=== PATIENT | male | born 1960 | race Caucasian/White ===

== ENCOUNTER 2021-09-17 01:45 | Day surgery (SDC) | payer BC, SELFPAY ==
[2021-08-29 11:39] VITALS: BMI 41.1
[2021-09-17 06:48] LABS: Glucose Point of Care 98 mg/dl (65-105)
[2021-09-17 06:49] VITALS: BP 136/70; PULSE 65; RESP 18; TEMP 35.6; O2SAT 100
[2021-09-17] MEDS: LACTATED RINGERS 1,000 ML 150 ML IV CONT (06:51)
--- NOTE | 2021-09-17 07:24 | WPDGICN ---
Assessment and Plan Assessment and plan (1) Encounter for screening colonoscopy: Code(s): Z12.11 - Encounter for screening for malignant neoplasm of colon Status: Acute Assessment and Plan: Patient presents today for screening colonoscopy. Appears to be at average risk for colon polyps. Further recommendations will be given after endoscopy. GI Consult Note Consult date/time: 09/17/21 07:24 HPI: Marbin Anderson is a 61 year old male Presents for screening colonoscopy. Patient's current weight appetite bowel movements are normal. He denies abdominal pain. He has had no bleeding. Family history is noncontributory. Patient reports having had a hyperplastic colon polyp removed from the colon 10 years ago under the direction of Dr. Marks. presents today for screening exam. Review of Systems Review of Systems: All systems reviewed & are unremarkable except as noted in HPI and below PMFSH Social History Social History Smoking status: Never smoker Alcohol intake: never Substance use: never Substance use type: does not use Living arrangements: with family Spiritual care concerns: No Meds Home Medications and Allergies Home Medications Medication Instructions Recorded Confirmed Type allopurinol 300 mg PO DAILY 08/29/21 09/17/21 History aspirin 81 mg PO DAILY 08/29/21 09/17/21 History atorvastatin 20 mg PO DAILY 08/29/21 09/17/21 History glimepiride 1 mg PO DAILY 08/29/21 09/17/21 History metoprolol succinate 100 mg PO BID 08/29/21 09/17/21 History minoxidil 5 mg PO DAILY 08/29/21 09/17/21 History pioglitazone 45 mg PO DAILY 08/29/21 09/17/21 History spironolactone 25 mg PO DAILY 08/29/21 09/17/21 History valsartan 80 mg PO DAILY 08/29/21 09/17/21 History Allergies Allergy/AdvReac Type Severity Reaction Status Date / Time No Known Allergies Allergy Verified 09/17/21 06:48 Vital Signs Vital Signs - 24 hr 09/17/21 06:49 Temperature 96.1 F L Pulse Rate 65 Respiratory Rate 18 Blood Pressure 136/70 Pulse Oximetry 100 Exam Narrative: Physical exam reveals patient be alert. Vital signs stable. HEENT exam is unremarkable. Patient is anicteric. Lungs are clear to auscultation and percussion. Heart is without murmur or extra sounds. Abdominal exam is somewhat obese. Bowel sounds are present soft nontender with no organomegaly. Digital external rectal exam is normal.
--- NOTE | 2021-09-17 07:48 | P.PNAN_ITS ---
Anes - Initial Pre Proc Eval Procedure: Operation Date: 09/17/21 08:00 Proposed Procedures p Screening Colonoscopy - Bry Carrasco MD Date/Time: 09/17/21 07:48 Surgeon: Bry Carrasco MD Pre Op Diagnosis: hx colon polyps Patient Data Age: 61 Gender: M Height: 1.8 m Weight: 140.9 kg Last Vital Signs Temp 96.1 F L 09/17/21 06:49 Pulse 65 09/17/21 06:49 Resp 18 09/17/21 06:49 BP 136/70 09/17/21 06:49 Pulse Ox 100 09/17/21 06:49 Allergies Allergy/AdvReac Type Severity Reaction Status Date / Time No Known Allergies Allergy Verified 09/17/21 06:48 Home Medications Medication Instructions Recorded Confirmed Type allopurinol 300 mg PO DAILY 08/29/21 09/17/21 History aspirin 81 mg PO DAILY 08/29/21 09/17/21 History atorvastatin 20 mg PO DAILY 08/29/21 09/17/21 History glimepiride 1 mg PO DAILY 08/29/21 09/17/21 History metoprolol succinate 100 mg PO BID 08/29/21 09/17/21 History minoxidil 5 mg PO DAILY 08/29/21 09/17/21 History pioglitazone 45 mg PO DAILY 08/29/21 09/17/21 History spironolactone 25 mg PO DAILY 08/29/21 09/17/21 History valsartan 80 mg PO DAILY 08/29/21 09/17/21 History Laboratory Tests 09/17/21 06:44 POC Capillary Glucose 98 mg/dl mg/dl (65-105) Patient hx anesthesia problems: none Family hx anesthesia problems: none Results Review: All pre-operative results and documents have been reviewed as part of the pre-operative evaluation. [facility] Past Medical History Medical History (Updated 09/17/21 @ 07:48 by Abner Sanchez MD) Hyperlipidemia Hypertension ZULEYMA (obstructive sleep apnea) Social History Social History Smoking status: Never smoker Alcohol intake: never Substance use: never Substance use type: does not use Living arrangements: with family Spiritual care concerns: No Anes - Eval Final PreProcedure Day of Procedure 09/17/21 07:48 Patient weight: morbidly obese Heart: regular rate and rhythm Lungs: clear to auscultation Airway: Mallampati scale class III Neurological: alert and oriented Last oral intake: >/= 8 hours ASA classification: III Emergent: no Anesthetic plan: proceed Anesthesia type and monitoring: general GIVS and standard monitoring Results Review: All pre-operative results and documents have been reviewed as part of the pre-operative evaluation. Informed Consent: The patient's anesthetic plan and its attendant risks and benefits were discussed with the patient/family/POA. Questions were solicited and answers provided to the satisfaction of the patient/family/POA.
[2021-09-17 08:11] VITALS: BP 137/63; PULSE 69; RESP 25; O2SAT 99
[2021-09-17 08:21] VITALS: BP 152/84; PULSE 67; RESP 21; O2SAT 100
[2021-09-17 08:31] VITALS: BP 141/80; PULSE 61; RESP 18; O2SAT 100
== END 2021-09-17 08:43 | disposition home or self-care (01) ==
PROVIDERS: PCP Family Medicine Adolescent Medicine; Visit Provider Internal Medicine Gastroenterology
PROC: 0DJD8ZZ Inspection of Lower Intestinal Tract, Via Natural or Artificial Opening Endoscopic (ICD-10-PCS; CPT 45378; principal; 2021-09-17 08:00)
DX: Z12.11 Encounter for screening for malignant neoplasm of colon (principal); D12.5 Benign neoplasm of sigmoid colon; K64.8 Other hemorrhoids; I10 Essential (primary) hypertension; E78.5 Hyperlipidemia, unspecified; G47.33 Obstructive sleep apnea (adult) (pediatric); E66.01 Morbid (severe) obesity due to excess calories; Z68.41 Body mass index [BMI] 40.0-44.9, adult; Z79.82 Long term (current) use of aspirin; Z79.84 Long term (current) use of oral hypoglycemic drugs
CPT/HCPCS: 45385; 82948; 88305; J2704; J7120

== ENCOUNTER 2024-11-07 22:59 | Inpatient (IN) | payer BC, MEDICARE, SELFPAY ==
--- NOTE | ~2024-11-07 | CT_ITS ---
CT of the Abdomen and Pelvis: Indication: Abdominal pain Technique: 2.5 mm axial scans were obtained through the abdomen and pelvis following intravenous adm inistration of 100 cc of Omnipaque 350. Dose reduction technique was used on this scan by utilizing a utomated exposure control and iterative reconstruction technique. The dose-length product (DLP) was 2 170.19 mGy-cm. Findings: Scans through the lung bases demonstrate left basilar atelectatic change. The liver, spleen, pancreas, gallbladder, adrenals and kidneys are within normal limits. There are mi ld atherosclerotic calcifications of the aorta. No lymphadenopathy. There is extensive wall thickening and inflammatory change involving the mid sigmoid colon, compatibl e with acute diverticulitis. Small amount of local free air present, with pericolonic phlegmonous aust[place] nge. No intracranial abscess evident. Images through the pelvis were performed. Urinary bladder unremarkable. No pelvic mass seen. No ascit es. Impression: Acute sigmoid diverticulitis with pericolonic phlegmonous change and small amount of local free air, compatible with perforation. No mature drainable abscess. Reviewed, dictated and finalized at [facility]. [employer]ING [employer]PER[employer]OR Impression: Acute sigmoid diverticulitis with pericolonic phlegmonous change and small amou nt of local free air, compatible with perforation. No mature drainable abscess.
[2024-11-07 23:16] VITALS: BP 139/71; PULSE 120; RESP 20; TEMP 36.9; O2SAT 96
[2024-11-07 23:28] LABS: Basophils Percent Auto 0.1 % (0.2-1.2); Eosinophils Absolute Auto 0.1 K/mm3 (0-0.3); Eosinophils Percent Auto 0.5 % (0-4.4); Hematocrit 39.9 % (42.0-52.0); Hemoglobin 12.9 g/dL (14.0-18.0); Immature Granulocyte Absolute 0.07 K/mm3 (0.00-0.031); Immature Granulocyte Percent A 0.5 % (0-0.5); Lymphocytes Absolute Auto 0.92 K/mm3 (0.9-3.2); Lymphocytes Percent Auto 6.2 % (18.3-44.2); Mean Corpuscular HGB Conc 32.3 g/dl (32-36); Mean Corpuscular Hemoglobin 30.7 pg (26-34); Mean Platelet Volume 9.5 fl (7.4-10.4); Monocytes Absolute Auto 0.9 K/mm3 (0.1-0.6); Monocytes Percent Auto 6.2 % (2.6-8.5); Neutrophils Absolute Auto 12.8 K/mm3 (1.3-6.7); Neutrophils Percent Auto 86.5 % (45.5-73.1); Platelet Count Result 256 k/mm3 (150-375); Red Cell Distribution Width 14.2 % (11.5-14.5); White Blood Count 14.9 K/mm3 (4.5-10.0)
[2024-11-07 23:40] LABS: Alanine Aminotransferase 28 U/L (6-50); Albumin Level 3.9 g/dL (3.5-5.1); Alkaline Phosphatase 69 U/L (38-126); Anion Gap 9 mmol/L (4-12); Aspartate Amino Transferase 24 U/L (17-59); Bilirubin,Total 0.7 mg/dL (0.2-1.3); Blood Urea Nitrogen 31 mg/dL (9-20); Calcium 9.6 mg/dL (8.4-10.2); Carbon Dioxide 25 mmol/L (22-30); Chloride 104 mmol/L (98-107); Estimated CRCL calculation 68 ml/min; Estimated Glomerular Filt Rate 51; Glucose 173 mg/dL (65-110); Lipase 133 U/L (23-300); Potassium 4.7 mmol/L (3.4-5.0); Sodium 138 mmol/L (137-145)
[2024-11-08] VITALS (14 sets, daily range): BP systolic 96–133; BP diastolic 41–87; PULSE 72–105; RESP 16–20; TEMP 36.2–37.7; O2SAT 91–97; BMI 44.0
--- NOTE | 2024-11-08 00:27 | ED.ABDPAIN ---
HPI - Abdominal Pain General Chief Complaint: Abdominal Pain <Patrice Jameson PA-C - Last Filed: 11/08/24 02:08> Stated Complaint: Extreme stomach pain <PARISH Stevens Last Filed: 11/08/24 02:08> Time Seen by Provider: 11/08/24 00:17 <Patrice Jameson PA-C - Last Filed: 11/08/24 02:08> Source: patient <PARISH Stevens Last Filed: 11/08/24 02:08> Mode of arrival: ambulatory <PARISH Stevens Last Filed: 11/08/24 02:08> Limitations: no limitations <PARISH Stevens Last Filed: 11/08/24 02:08> History of Present Illness HPI narrative: This is a 64-year-old male who presents to the ED for chief complaint of lower abdominal pain, nausea, distension over the past couple of days. States that last night he started to have this pain when he stood up from a seated position. States that he felt like something popped where his incision site is. Reports that he has surgical history of skin grafting from the abdomen in 2019 at [facility] [place]. Patient states that he thought the pain was strange last night but did not think much of it, however today is getting worse and worse. Endorses severe bloating and nausea but no vomiting. States that bowel movements have been normal. Denies urinary symptoms. Denies fevers, chills, back pain. Patient reports that he had abdominal apron surgically resected which was used to harvest graft for a split-thickness graft of his penis for skin defects of the penis. This was all done as 1 procedure at [place]. <PARISH Stevens Last Filed: 11/08/24 02:08> Related Data Home Medications: Home Medications ?Medication ?Instructions ?Recorded ?Confirmed ?Last Taken ?Type aspirin 81 mg tablet 81 mg PO DAILY 08/29/21 08/23/24 Unknown History [id number] 300 mcg-K 60 1 tablet PO DAILY 07/10/22 08/23/24 Unknown History mcg-lycop 600 mcg-lutein 300 mcg tablet (Men 50 Plus Multivitamin) clobetasol 0.05 % topical ointment 1 applic topical BID PRN 08/23/24 08/23/24 Unknown History <Patrice Jameson PA-C - Last Filed: 11/08/24 02:08> Allergies/Adverse Reactions: Allergies Allergy/AdvReac Type Severity Reaction Status Date / Time acetaminophen (From Lortab) Allergy Vomiting Verified 08/23/24 13:01 hydrocodone (From Lortab) Allergy Vomiting Verified 08/23/24 13:01 <Patrice Jameson PA-C - Last Filed: 11/08/24 02:08> Review of Systems Review of Systems: All systems as dictated in HPI <PARISH Stevens Last Filed: 11/08/24 02:08> PMFSH Past Medical History Medical History: Medical History (Updated 11/08/24 @ 03:25 by Kailash Rodriguez MD) ZULEYMA (obstructive sleep apnea) Hypertension Hyperlipidemia <PARISH Stevens Last Filed: 11/08/24 02:08> Family History Family History: Family History (Updated 07/07/22 @ 10:02 by Logan Harp MA) Father Diabetes mellitus Hypertension Mother Diabetes mellitus Multiple myeloma <Patrice Jameson PA-C - Last Filed: 11/08/24 02:08> Social History Social History: Social History Smoking status: Never smoker Alcohol intake: never Substance use: never Substance use type: does not use Living arrangements: with family Spiritual care concerns: No <PARISH Stevens Last Filed: 11/08/24 02:08> Exam Narrative: GENERAL: Well-appearing, well-nourished, and in no acute distress. HEAD: Normocephalic, atraumatic. EYES: PERRLA and EOMI. ENT: Nares clear, no rhinorrhea or epistaxis. Mucous membranes moist. Oropharynx without tonsillar hypertrophy exudate or other lesions. NECK: Supple. No adenopathy or masses. CHEST: No respiratory distress. Clear to auscultation. No wheezes rales or rhonchi HEART: Regular rate and rhythm. No murmur heard. Normal peripheral pulses. ABDOMEN: Obese abdomen. Curvilinear healed incision across the entire lower pannus. Moderate tenderness to the periumbilical/suprapubic area. Soft, mild distension, normal active bowel sounds. MSK: Normal range of motion. No edema. SKIN: Warm, dry, no rash. NEURO: Alert and oriented x4. No focal deficits. PSYCH: Normal mood and affect. <Patrice Jameson PA-C - Last Filed: 11/08/24 02:08> Course [employer] CHAIR/PA Physician Supervision For this patient encounter, I reviewed the [employer] CHAIR or PA documentation, treatment plan, and medical decision making and had [id number] time with this patient. I performed all aspects of the MDM as documented. <Kailash Rodriguez MD - Last Filed: 11/08/24 03:58> Vital Signs Vital signs: Vital Signs Temperature 98.4 F 11/07/24 23:16 Pulse Rate 120 H 11/07/24 23:16 Respiratory Rate 20 11/07/24 23:16 Blood Pressure 139/71 11/07/24 23:16 Pulse Oximetry 96 11/07/24 23:16 Oxygen Delivery Room Air 11/07/24 23:16 Temperature 98.4 F 11/07/24 23:16 Pulse Rate 105 H 11/08/24 03:31 Respiratory Rate 19 11/08/24 03:31 Blood Pressure 133/72 11/08/24 03:31 Pulse Oximetry 97 11/08/24 03:31 Oxygen Delivery Room Air 11/07/24 23:16 <Patrice Jameson PA-C - Last Filed: 11/08/24 02:08> Vital Signs Temperature 98.4 F 11/07/24 23:16 Pulse Rate 120 H 11/07/24 23:16 Respiratory Rate 11/07/24 23:16 Blood Pressure 139/71 11/07/24 23:16 Pulse Oximetry 96 11/07/24 23:16 Oxygen Delivery Room Air 11/07/24 23:16 Temperature 98.4 F 11/07/24 23:16 Pulse Rate 105 H 11/08/24 03:31 Respiratory Rate 19 11/08/24 03:31 Blood Pressure 133/72 11/08/24 03:31 Pulse Oximetry 97 11/08/24 03:31 Oxygen Delivery Room Air 11/07/24 23:16 <Kailash Rodriguez MD - Last Filed: 11/08/24 03:58> MDM - Abdominal Pain MDM Narrative Medical decision making narrative: This is a 64-year-old male who presents to the ED for chief complaint of abdominal pain beginning last night and worsening today. Vitals on arrival show tachycardia but otherwise normal. Exam remarkable for lower abdominal tenderness. Lab work shows elevated white count of 14.9. CMP shows elevated BUN of 31 and creatinine of 1.39 which is a bump his baseline. Urinalysis is grossly negative. Patient will be handed off to attending Dr. Rodriguez at the time of shift change pending CT results. Patient was started on fluids, pain meds and anti emetics. <Patrice Jameson PA-C - Last Filed: 11/08/24 02:08> This is a 64-year-old male who presents to the ED for chief complaint of abdominal pain beginning last night and worsening today. Vitals on arrival show tachycardia but otherwise normal. Exam remarkable for lower abdominal tenderness. Lab work shows elevated white count of 14.9. CMP shows elevated BUN of 31 and creatinine of 1.39 which is a bump his baseline. Urinalysis is grossly negative. Patient will be handed off to attending Dr. Rodriguez at the time of shift change pending CT results. Patient was started on fluids, pain meds and anti emetics. Aveshir: Patient was signed out to me pending CT abdomen pelvis with IV contrast. CT obtained and did receive a call from radiologist reading the CT scan at 0312 informing me that patient has a perforated diverticulitis of the sigmoid colon recommending surgical consultation. CT also revealed gas and fluid containing collection adjacent to the sigmoid colon measuring up to 2.5 cm consistent with abscess. No evidence of bowel obstruction. Patient was informed of these findings at bedside. He is currently resting comfortably. Case was discussed with the on-call general surgeon Dr. Lujan at 0325 and he accepted admission. Per his request patient will be admitted to his service. Patient was started on IV Zosyn after blood cultures were obtained. PRN pain medications were ordered at this time with morphine, along with p.r.n. nausea medication with Zofran. Patient was also started on maintenance fluids with LR at a rate of 100 cc/hour. <Kailash Rodriguez MD - Last Filed: 11/08/24 03:58> Lab Data Result diagrams: 11/07/24 23:22 11/07/24 23:22 <Patrice Jameson PA-C - Last Filed: 11/08/24 02:08> Labs: Lab Results 11/07/24 11/08/24 11/08/24 Range/Units 23:22 00:57 01:16 WBC 14.9 H (4.5-10.0) K/mm3 RBC 4.20 L (4.6-6.20) M/mm3 Hgb 12.9 L (14.0-18.0) g/dL Hct 39.9 L (42.0-52.0) % MCV 95.0 (80-100) fl MCH 30.7 (26-34) pg MCHC 32.3 (32-36) g/dl RDW 14.2 (11.5-14.5) % Plt Count 256 (150-375) k/mm3 MPV 9.5 (7.4-10.4) fl Immature Gran % (Auto) 0.5 (0-0.5) % Neut % (Auto) 86.5 H (45.5-73.1) % Lymph % (Auto) 6.2 L (18.3-44.2) % [place] % (Auto) 6.2 (2.6-8.5) % Eos % (Auto) 0.5 (0-4.4) % Baso % (Auto) 0.1 L (0.2-1.2) % Lymph # (Auto) 0.92 (0.9-3.2) K/mm3 [place] # (Auto) 0.9 H (0.1-0.6) K/mm3 Eos # (Auto) 0.1 (0-0.3) K/mm3 Baso # (Auto) 0.0 (0.0-0.1) K/mm3 Abs Immat Gran (auto) 0.07 H (0.00-0.031) K/mm3 Absolute Neuts (auto) 12.8 H (1.3-6.7) K/mm3 Absolute Nucleated RBC 0.000 (0.0-0.012) K/mm3 Nucleated RBC % 0.0 (0.0-0.2) % Sodium 138 (137-145) mmol/L Potassium 4.7 (3.4-5.0) mmol/L Chloride 104 (98-107) mmol/L Carbon Dioxide 25 (22-30) mmol/L Anion Gap 9 (4-12) mmol/L BUN 31 H (9-20) mg/dL Creatinine 1.39 H (0.7-1.3) mg/dL Estim Creat Clear Calc 68 ml/min Estimated GFR 51 L (59 - ) Glucose 173 H (65-110) mg/dL POC Capillary Glucose 174 H (65-105) mg/dl Lactic Acid 1.5 (0.7-2.0) mmol/L Calcium 9.6 (8.4-10.2) mg/dL Total Bilirubin 0.7 (0.2-1.3) mg/dL AST 24 (17-59) U/L ALT 28 (6-50) U/L Alkaline Phosphatase 69 (38-126) U/L Total Protein 7.0 (6.3-8.2) g/dL Albumin 3.9 (3.5-5.1) g/dL Lipase 133 (23-300) U/L Urine Color Yellow (Yellow) Urine Appearance Clear (Clear) Urine pH 5.0 (5.0-9.0) Ur Specific [place] 1.018 (1.001-1.035) Urine Protein Negative (Negative) mg/dL Urine Glucose (UA) Negative (Negative) mg/dL Urine Ketones Negative (Negative) mg/dL Ur Blood (Man) Negative (Negative) Urine Nitrate Negative (Negative) Urine Bilirubin Negative (Negative) Urine Urobilinogen 0.2 (<2.0) mg/dL Leukocyte Esterase Rfl Negative (Negative) JEANNE/UL <Patrice Jameson PA-C - Last Filed: 11/08/24 02:08> Lab Results 11/07/24 11/08/24 11/08/24 Range/Units 23:22 00:57 01:16 WBC 14.9 H (4.5-10.0) K/mm3 RBC 4.20 L (4.6-6.20) M/mm3 Hgb 12.9 L (14.0-18.0) g/dL Hct 39.9 L (42.0-52.0) % MCV 95.0 (80-100) fl MCH 30.7 (26-34) pg MCHC 32.3 (32-36) g/dl RDW 14.2 (11.5-14.5) % Plt Count 256 (150-375) k/mm3 MPV 9.5 (7.4-10.4) fl Immature Gran % (Auto) 0.5 (0-0.5) % Neut % (Auto) 86.5 H (45.5-73.1) % Lymph % (Auto) 6.2 L (18.3-44.2) % [place] % (Auto) 6.2 (2.6-8.5) % Eos % (Auto) 0.5 (0-4.4) % Baso % (Auto) 0.1 L (0.2-1.2) % Lymph # (Auto) 0.92 (0.9-3.2) K/mm3 [place] # (Auto) 0.9 H (0.1-0.6) K/mm3 Eos # (Auto) 0.1 (0-0.3) K/mm3 Baso # (Auto) 0.0 (0.0-0.1) K/mm3 Abs Immat Gran (auto) 0.07 H (0.00-0.031) K/mm3 Absolute Neuts (auto) 12.8 H (1.3-6.7) K/mm3 Absolute Nucleated RBC 0.000 (0.0-0.012) K/mm3 Nucleated RBC % 0.0 (0.0-0.2) % Sodium 138 (137-145) mmol/L Potassium 4.7 (3.4-5.0) mmol/L Chloride 104 (98-107) mmol/L Carbon Dioxide 25 (22-30) mmol/L Anion Gap 9 (4-12) mmol/L BUN 31 H (9-20) mg/dL Creatinine 1.39 H (0.7-1.3) mg/dL Estim Creat Clear Calc 68 ml/min Estimated GFR 51 L (59 - ) Glucose 173 H (65-110) mg/dL POC Capillary Glucose 174 H (65-105) mg/dl Lactic Acid 1.5 (0.7-2.0) mmol/L Calcium 9.6 (8.4-10.2) mg/dL Total Bilirubin 0.7 (0.2-1.3) mg/dL AST 24 (17-59) U/L ALT 28 (6-50) U/L Alkaline Phosphatase 69 (38-126) U/L Total Protein 7.0 (6.3-8.2) g/dL Albumin 3.9 (3.5-5.1) g/dL Lipase 133 (23-300) U/L Urine Color Yellow (Yellow) Urine Appearance Clear (Clear) Urine pH 5.0 (5.0-9.0) Ur Specific [place] 1.018 (1.001-1.035) Urine Protein Negative (Negative) mg/dL Urine Glucose (UA) Negative (Negative) mg/dL Urine Ketones Negative (Negative) mg/dL Ur Blood (Man) Negative (Negative) Urine Nitrate Negative (Negative) Urine Bilirubin Negative (Negative) Urine Urobilinogen 0.2 (<2.0) mg/dL Leukocyte Esterase Rfl Negative (Negative) JEANNE/UL <Kailash Rodriguez MD - Last Filed: 11/08/24 03:58> Discharge Plan Discharge Clinical Impression: Bowel perforation, Abscess of sigmoid colon, Abdominal pain <Patrice Jameson PA-C - Last Filed: 11/08/24 02:08>
[2024-11-08 01:00] LABS: Glucose Point of Care 174 mg/dl (65-105)
[2024-11-08] MEDS: SODIUM CHLORIDE 0.9% IV 1,000 ML 999 ML IV CONT (01:09)
[2024-11-08] MEDS: ONDANSETRON INJ 4 MG/2 ML VIAL IV PUSH ×4 (01:11→21:45)
[2024-11-08] MEDS: HYDROmorphone HCL INJ (*CRX) 1 MG/ML SYR 0.5 MG IV PUSH (01:11)
[2024-11-08 01:30] LABS: Add Urine Microscopic? NO; Appearance Urine Clear (Clear); Bilirubin Urine Negative (Negative); Blood Urine Negative (Negative); Color Urine Yellow (Yellow); Glucose Urine UA Negative (Negative); Ketones Urine Negative (Negative); Leukocyte Esterase Ur Negative LEU/UL (Negative); Nitrate Urine Negative (Negative); Protein Urine Negative (Negative); Specific Grav Ur 1.018 (1.001-1.035); Urobilinogen Urine 0.2 mg/dL (<2.0)
[2024-11-08 01:38] LABS: Lactic Acid Reflex 1.5 mmol/L (0.7-2.0)
[2024-11-08] MEDS: MORPHINE SULFATE (*CRX) 4 MG/ML INJ IV PUSH ×4 (03:59→21:44)
--- NOTE | 2024-11-08 04:03 | PC.NURSE ---
ATTEMPTED BCULT X2 W NO SUCCESS. ADMITTING NURSE, FRANCISCO, MADE AWARE. PHLEBOTOMY CONTACTED BY PHYSICAL LABORATORY ASSISTANT, CARLOS AND TO DRAW CULTURES FROM ADMITTING ROOM. PT GIVEN DOSE OF PRN ANTIEMETICS AND PAIN MEDICATION. PT TRANSPORTED UPSTAIRS BY PAUL PRICE.
--- NOTE | 2024-11-08 04:13 | ADMGEN ---
This patient, Marbin Anderson, was admitted to Medical Room 261-01. Patient/family oriented to hospital policies and general routines including ID bracelet, bed and alarms, visiting hours, pain management, procedures, bathroom and other care routines, personal items, smoking policy, room service/diet, and visiting hours. Information on how to activate the Rapid Response Team has been discussed. Patient/Family are encouraged to report perceived risks to care and to ask questions if they do not understand what they are told or what they should do.
[2024-11-08] MEDS: PIPERACILLIN/TAZ 4.5G/NS 100ML 4.5 GM/100 ML BAG IVPB (04:40)
[2024-11-08] MEDS: LACTATED RINGERS 1,000 ML 100 ML IV CONT (04:43)
[2024-11-08 06:48] LABS: Glucose Point of Care 149 mg/dl (65-105)
[2024-11-08 08:23] LABS: Glucose Point of Care 143 mg/dl (65-105)
[2024-11-08 09:01] LABS: Basophils Percent Auto 0.2 % (0.2-1.2); Eosinophils Percent Auto 0.1 % (0-4.4); Hematocrit 42.4 % (42.0-52.0); Hemoglobin 12.8 g/dL (14.0-18.0); Immature Granulocyte Percent A 0.6 % (0-0.5); Lymphocytes Percent Auto 4.9 % (18.3-44.2); Mean Corpuscular HGB Conc 30.2 g/dl (32-36); Mean Corpuscular Hemoglobin 30.9 pg (26-34); Mean Corpuscular Volume 102.4 fl (80-100); Mean Platelet Volume 10.5 fl (7.4-10.4); Monocytes Percent Auto 5.9 % (2.6-8.5); Neutrophils Absolute Auto 14.5 K/mm3 (1.3-6.7); Neutrophils Percent Auto 88.3 % (45.5-73.1); Platelet Count Result 231 k/mm3 (150-375); Red Blood Count 4.14 M/mm3 (4.6-6.20); Red Cell Distribution Width 14.6 % (11.5-14.5); White Blood Count 16.4 K/mm3 (4.5-10.0)
[2024-11-08 09:09] LABS: Anion Gap 12 mmol/L (4-12); Blood Urea Nitrogen 29 mg/dL (9-20); Calcium 9.3 mg/dL (8.4-10.2); Carbon Dioxide 23 mmol/L (22-30); Chloride 104 mmol/L (98-107); Estimated CRCL calculation 81 ml/min; Estimated Glomerular Filt Rate > 60; Glucose 152 mg/dL (65-110); Potassium 4.7 mmol/L (3.4-5.0); Sodium 139 mmol/L (137-145)
[2024-11-08 12:06] LABS: Glucose Point of Care 120 mg/dl (65-105)
[2024-11-08] MEDS: PIPERACILLN/TAZ 3.375GM/NS50ML 3.375 GM/50 ML BAG IVPB ×3 (12:15→23:11)
[2024-11-08] MEDS: SPIRONOLACTONE 25 MG TABLET BY MOUTH (12:16)
[2024-11-08] MEDS: METOPROLOL SUCCINATE EXT REL 100 MG TABCR 200 MG BY MOUTH (12:16)
[2024-11-08] MEDS: allopurinoL 300 MG TABLET PO (12:16)
--- NOTE | 2024-11-08 13:51 | P.HP_ITS ---
H&P: HPI History of Present Illness Date/Time: 11/08/24 13:51 Chief Complaint: Abdominal pain Narrative: Patient is a 64-year-old man with diabetes, hypertension, gout, and morbid obesity. He has a history of a panniculectomy 5 years ago. Some of the skin from the panniculectomy was used as a skin graft for his penis. This was a difficult surgery for him and the panniculectomy itself had a postoperative hem atoma and delayed healing. He notices some intermittent pain associated with this area from time to time even today. His present illness began Thursday evening when he got up out of his recliner and noticed a pain in the left lower abdomen. This did not seem particularly unusual and he went head and went to bed that night. When he awakened yesterday morning the pain was still there but again not severe. He went about his usual activities yesterday but then yesterday evening was still having pain and now the pain seems worse and associated with tenderness. He went to the emergency room and was evaluated. He was noted to have tenderness in the left lower quadrant. His white blood cell count was elevated to 14,900. He was tachycardic but not febrile. CT scan of the abdomen pelvis showed evidence of sigmoid diverticulitis with perforation and a small amount of free air. There was no abscess. Patient was admitted and has been started on IV Zosyn antibiotics. He has been at bowel rest except for meds with sips of water and has been receiving IV a narcotic analgesics. He notes that the abdominal pain is still in the left lower quadrant but is not quite as severe as it was when he came into the emergency room. He has never had any similar symptoms or ever been diagnosed with diverticulitis. He had his last colonoscopy 09/17/21. This showed 2 small sigmoid polyps which were removed. Both were tubular adenomas. Some internal hemorrhoids were also noted. He has been recently started on Ozempic. He does not take insulin for his diabetes. Review of Systems Review of Systems: All systems reviewed & are unremarkable except as noted in HPI and below (HPI and those items noted below) Constitutional: Constitutional: Denies chills and Denies fever(s) Cardiovascular: Cardiovascular: Denies chest pain, Denies diaphoresis, Denies dyspnea and Denies paroxysmal nocturnal dyspnea Respiratory: Respiratory: Denies chest congestion, Denies cough and Denies dyspnea Integumentary/Breasts: Skin/Breast: Denies lesions and Denies rash [facility] Past Medical History Medical History ZULEYMA (obstructive sleep apnea) Hypertension Hyperlipidemia Family History Family History Father Diabetes mellitus Hypertension Mother Diabetes mellitus Multiple myeloma Social History Social History Smoking status: Never smoker Alcohol intake: never Substance use: never Substance use type: does not use Do You Feel Safe in your Home?: Yes Lack of Transportation: No Lack of Food: Never True Current Housing: I Have Housing Concerned About Future Housing: No Difficulty Paying Gas/Electric Bills: No Difficulty Paying for Meds: No Currently Unemployed: No Education: Bachelor's Degree Difficulty w/ Childcare or Family Care: No Living arrangements: with family Spiritual care concerns: No Meds Home Medications and Allergies Home Medications ?Medication ?Instructions ?Recorded ?Confirmed ?Type aspirin 81 mg tablet 81 mg PO DAILY 08/29/21 11/08/24 History [id number] 300 mcg-K 60 1 tablet PO DAILY 07/10/22 11/08/24 History mcg-lycop 600 mcg-lutein 300 mcg tablet (Men 50 Plus Multivitamin) metoprolol succinate 100 mg See Rx Instructions .Route 05/03/24 11/08/24 Rx tablet,extended release 24 hr .COMPLEX #270 tabs atorvastatin 20 mg tablet See Rx Instructions .Route 05/09/24 11/08/24 Rx .COMPLEX #90 tabs allopurinol 300 mg tablet 300 mg PO DAILY #90 tabs 08/01/24 11/08/24 Rx pioglitazone 45 mg tablet 45 mg PO DAILY #90 tabs 08/04/24 11/08/24 Rx spironolactone 25 mg tablet See Rx Instructions .Route 08/04/24 11/08/24 Rx .COMPLEX #90 tabs blood sugar diagnostic (OneTouch #100 ea 08/29/24 11/08/24 Rx Ultra Test strips) semaglutide 1 mg/dose (4 mg/3 mL) 1 mg (0.75 mL) subcut WEEKLY #3 mL 10/29/24 11/08/24 Rx subcutaneous pen injector (Ozempic) minoxidil 10 mg tablet See Rx Instructions .Route 11/06/24 11/08/24 Rx .COMPLEX #45 tabs valsartan 320 mg tablet 160 mg PO DAILY 11/08/24 11/08/24 History Allergies Allergy/AdvReac Type Severity Reaction Status Date / Time acetaminophen (From Lortab) Allergy Vomiting Verified 08/23/24 13:01 hydrocodone (From Lortab) Allergy Vomiting Verified 08/23/24 13:01 Vital Signs Vital Signs - 24 hr 11/07/24 23:16 11/08/24 03:31 11/08/24 04:00 Temperature 36.9 C 37.2 C Pulse Rate 120 H 105 H 88 Respiratory Rate 20 19 16 Blood Pressure 139/71 133/72 118/76 Pulse Oximetry 96 97 94 Oxygen Delivery Room Air 11/08/24 04:05 11/08/24 04:27 11/08/24 06:39 Temperature 37.7 C H Pulse Rate 72 105 H Respiratory Rate 16 16 Blood Pressure 128/87 111/43 L Pulse Oximetry 97 94 Oxygen Delivery Room Air 11/08/24 08:00 11/08/24 08:00 11/08/24 09:27 Temperature 36.6 C Pulse Rate 96 Respiratory Rate 18 Blood Pressure 96/43 L Pulse Oximetry 94 91 Oxygen Delivery Room Air Room Air 11/08/24 12:00 11/08/24 12:16 Temperature 36.4 C Pulse Rate 93 94 Respiratory Rate 20 Blood Pressure 123/61 Pulse Oximetry 97 Oxygen Delivery Exam Const: General: cooperative, comfortable, no acute distress, alert, awake and obese Nutritional Appearance: overweight Orientation/consciousness: patient oriented x3 and No confusion HENMT: Head: normocephalic and atraumatic Mouth: Yes Normal oral and palatal mucosa present Eyes: Conjunctivae: conjunctivae normal Pupils: Equal, round and reactive pupils present EOM: EOMs intact bilaterally Neck: Neck: normal visual inspection, no lymphadenopathy and nontender Resp: Effort & Inspection: normal respiratory effort Auscultation: clear to auscultation bilaterally Cardio: Rate: regular rate Rhythm: regular rhythm Heart sounds: no gallops, no murmurs and no rubs GI: Inspection: non-distended, obesity (Protuberant obese abdomen, central obesity), scar (Transverse lower abdominal scar) and no visible herniation GI Palp: Yes Soft to palpation, Yes Tenderness to palpation present (GI) (Very tender with guarding left lower quadrant.), Yes Guarding due to palpation present (GI), No Hepatomegaly present, No Splenomegaly present, No Hernia present and No Palpable mass present Auscultation: Hypoactive bowel sounds present Skin: Lesions: no lesions Rashes: no rashes Neuro: General: no focal motor deficits and CN's II-XI intact bilaterally Cranial nerves: Yes Equal, round and reactive pupils present, Yes Bilaterally intact EOM present, Yes facial symmetry and Yes Midline tongue present Speech : normal speech Motor exam (neuro): 5/5 motor strength present throughout and Motor abnormalities not present Extrem: General: no clubbing, cyanosis or edema and edema Psych: Affect: normal affect Thought process: Normal thought process present Insight: Good insight present (Psych) H&P: Results Labs Labs: Short CBC 11/07/24 11/08/24 Range/Units 23:22 04:38 WBC 14.9 H 16.4 H (4.5-10.0) K/mm3 Hgb 12.9 L 12.8 L (14.0-18.0) g/dL Hct 39.9 L 42.4 (42.0-52.0) % Plt Count 256 231 (150-375) k/mm3 BMP 11/07/24 11/08/24 23:22 04:38 Sodium 138 139 Potassium 4.7 4.7 Chloride 104 104 Carbon Dioxide 25 23 BUN 31 H 29 H Creatinine 1.39 H 1.17 Glucose 173 H 152 H Calcium 9.6 9.3 Liver Function 11/07/24 Range/Units 23:22 Total Bilirubin 0.7 (0.2-1.3) mg/dL AST 24 (17-59) U/L ALT 28 (6-50) U/L Alkaline Phosphatase 69 (38-126) U/L Albumin 3.9 (3.5-5.1) g/dL Urine 11/08/24 Range/Units 01:16 Urine Color Yellow (Yellow) Urine Appearance Clear (Clear) Urine pH 5.0 (5.0-9.0) Ur Specific [place] 1.018 (1.001-1.035) Urine Protein Negative (Negative) mg/dL Urine Glucose (UA) Negative (Negative) mg/dL Assessment and Plan Assessment and plan (1) Diverticulitis of large intestine with perforation: Qualifiers: Diverticulitis bleeding: without bleeding Qualified Code(s): K57.20 - Diverticulitis of large intestine with perforation and abscess without bleeding Code(s): K57.20 - Diverticulitis of large intestine with perforation and abscess without bleeding Status: Acute Assessment and Plan: Patient admitted for acute sigmoid diverticulitis with perforation. His white blood cell count is slightly higher this morning than it was last night. Continue bowel rest except sips of water and p.o. meds. Continue Zosyn IV antibiotics and IV fluid rehydration. I discussed the nature of diverticulitis with the patient and his . I discussed the possibility that diverticulitis may not resolve with nonsurgical treatment. I explained that it does usually resolve with medical therapy. If it does not resolve and surgery is needed, this will usually result in a temporary ileostomy or colostomy. Either of these would require a 2nd surgery to restore intestinal continuity. All questions were answered. Will continue to follow closely with above management. (2) Morbid obesity with BMI of 40.0-44.9, adult: Code(s): E66.01 - Morbid (severe) obesity due to excess calories; Z68.41 - Body mass index [BMI] 40.0-44.9, adult Status: Chronic (3) Essential (primary) hypertension: Code(s): I10 - Essential (primary) hypertension Status: Chronic Assessment and Plan: Continue home meds including metoprolol 100 mg q.8 hours. Consult hospitalist service for medical management hypertension, diabetes, other. (4) Obstructive sleep apnea (adult) (pediatric): Code(s): G47.33 - Obstructive sleep apnea (adult) (pediatric) Status: Chronic (5) Non-insulin dependent diabetes mellitus: Status: Chronic
[2024-11-08 17:20] LABS: Glucose Point of Care 107 mg/dl (65-105)
[2024-11-08] MEDS: KCL 20 MEQ/D5/0.9% SOD CHL 1,000 ML 100 ML IV CONT (17:22)
[2024-11-08] MEDS: ENOXAPARIN 40 MG/0.4 ML SYRINGE SUB-Q (17:24)
[2024-11-08] MEDS: METOPROLOL SUCCINATE EXT REL 100 MG TABCR PO (21:42)
[2024-11-08] MEDS: ASPIRIN 81 MG ENTERIC TABLET PO (21:43)
--- NOTE | 2024-11-08 22:24 | PM.IMCN ---
Assessment and Plan Assessment and plan (1) Diverticulitis of large intestine with perforation: Qualifiers: Diverticulitis bleeding: without bleeding Qualified Code(s): K57.20 - Diverticulitis of large intestine with perforation and abscess without bleeding Code(s): K57.20 - Diverticulitis of large intestine with perforation and abscess without bleeding Status: Acute (2) Non-insulin dependent diabetes mellitus: Status: Chronic (3) Essential (primary) hypertension: Code(s): I10 - Essential (primary) hypertension Status: Chronic (4) Obstructive sleep apnea on CPAP: Code(s): G47.33 - Obstructive sleep apnea (adult) (pediatric) Status: Acute Plan Patient has diverticulitis with perforation being managed by surgical service with Zosyn and NPO diet except for meds. Patient has type 2 diabetes mellitus and is been euglycemic. Patient's oral hypoglycemics on hold. Patient will be placed on low-dose sliding scale insulin with Accu-Cheks q.6 hours while NPO. Hypoglycemia protocol has been ordered as needed. Patient's blood pressures have for the most part been stable. But he has had a couple of values in the upper 90s. Given that the patient is NPO and required IV fluid hydration I will hold spironolactone for the short term. Will continue patient's home valsartan. The patient is usually on 200 mg of metoprolol succinate in a.m. and 100 mg at night. The surgical service has adjusted his medications to 100 mg q.8 hours. The patient seems to be tolerating this at this time and will monitor closely. Will continue CPAP for patient's obstructive sleep apnea. Repeat CBC and electrolyte panel been ordered for a.m. HPI Date of Consult Consult date: 11/09/24 Requesting Physician: Noam Lujan MD Primary Care Provider: David Gtz MD Consult Narrative Reason for consult: Medical management diabetes and hypertension Narrative: Marbin Anderson is a 64 year old male with a past medical history of morbid obesity, obstructive sleep apnea, essential hypertension, type 2 diabetes mellitus, panniculectomy and skin graft to his penis (that was complicated by hematoma and delayed healing) who presented to the ER with abdominal pain. The patient is stated they stood up on the 19th and noticed a popping sensation in his left lower quadrant. He assume that this was due to some discomfort in the scar tissue from his prior panniculectomy. He reports not uncommon for have some discomfort of pulling in this the area from time to time. The discomfort was not that unusual from his baseline. He went to bed. But when he woke up the next morning the pain was still there and but may be slightly worse. He still is able to do his usual activities and was able to eat. But that evening the pain became more severe he did not have much appetite. He noticed some tenderness on palpation to the area. He started to have a sensation of pressure and was developing cold sweats. He decided come into the ER on Thursday and was subsequently admitted. As the day progressed he became more uncomfortable and decided come to the ER. He was concerned that his symptoms could of been associated with his Ozempic which was recently increased. Although he had not had any symptoms with Ozempic before this. He has not had any nausea or vomiting. In the ER he did have white count of 14.9 and was tachycardic but afebrile. CT of the abdomen pelvis demonstrated sigmoid diverticulitis with perforation a small amount of free air without abscess. He was started on Zosyn it and admitted to the surgical service. He reports that he was having normal bowel movements up until the time that he had this pain in his left lower quadrant. He has not had bowel movement since then due to not eating or drinking. He has been on bowel rest except for home meds with sips since admission. The only abdominal surgery is had is been the panniculectomy. He had a colonoscopy with polypectomy in 2020. He does have obstructive sleep apnea is compliant with CPAP. Although he is morbidly obese he reports that a few years ago he lost 185 lb and he has been able to keep about 100 lb of that weight off. Review of Systems Review of Systems: 12 systems were reviewed with pertinent positives and negatives per HPI. Except as documented in the HPI, all other systems were reviewed and are negative. [facility] Past Medical History Medical History (Updated 11/08/24 @ 22:36 by Sil Fall, ) Lichen sclerosus Venous insufficiency (chronic) (peripheral) Gout, unspecified Morbid obesity with BMI of 40.0-44.9, adult Diabetic retinopathy ZULEYMA (obstructive sleep apnea) Hypertension Hyperlipidemia Surgical History Surgical History (Updated 11/08/24 @ 22:40 by Sil Fall DO) History of cardiac catheterization History of colonoscopy with polypectomy Status post arthroscopy of knee Bilateral knee History of skin graft (2019) Of the penis Status post panniculectomy (2019) Family History Family History Father Diabetes mellitus Hypertension Mother Diabetes mellitus Multiple myeloma Social History Social History (Updated 11/09/24 @ 10:51 by Sil Fall DO) Social History: Patient lives with his of 34 years. 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 He retired diff of October 2024. He is a lifelong nonsmoker. He only drinks alcohol on extremely rare occasion and in minimal amounts. Code status: Full code Healthcare power of criminal attorney: Cheli () Smoking status: Never smoker Alcohol intake: never Substance use: never Substance use type: does not use Do You Feel Safe in your Home?: Yes Lack of Transportation: No Lack of Food: Never True Current Housing: I Have Housing Concerned About Future Housing: No Difficulty Paying Gas/Electric Bills: No Difficulty Paying for Meds: No Currently Unemployed: No Education: Bachelor's Degree Difficulty w/ Childcare or Family Care: No Living arrangements: with family Spiritual care concerns: No Meds Home Medications and Allergies Home Medications ?Medication ?Instructions ?Recorded ?Confirmed ?Type aspirin 81 mg tablet 81 mg PO DAILY 08/29/21 11/08/24 History [id number] 300 mcg-K 60 1 tablet PO DAILY 07/10/22 11/08/24 History mcg-lycop 600 mcg-lutein 300 mcg tablet (Men 50 Plus Multivitamin) metoprolol succinate 100 mg See Rx Instructions .Route 05/03/24 11/08/24 Rx tablet,extended release 24 hr .COMPLEX #270 tabs atorvastatin 20 mg tablet See Rx Instructions .Route 05/09/24 11/08/24 Rx .COMPLEX #90 tabs allopurinol 300 mg tablet 300 mg PO DAILY #90 tabs 08/01/24 11/08/24 Rx pioglitazone 45 mg tablet 45 mg PO DAILY #90 tabs 08/04/24 11/08/24 Rx spironolactone 25 mg tablet See Rx Instructions .Route 08/04/24 11/08/24 Rx .COMPLEX #90 tabs blood sugar diagnostic (OneTouch #100 ea 08/29/24 11/08/24 Rx Ultra Test strips) semaglutide 1 mg/dose (4 mg/3 mL) 1 mg (0.75 mL) subcut WEEKLY #3 mL 10/29/24 11/08/24 Rx subcutaneous pen injector (Ozempic) minoxidil 10 mg tablet See Rx Instructions .Route 11/06/24 11/08/24 Rx .COMPLEX #45 tabs valsartan 320 mg tablet 160 mg PO DAILY 11/08/24 11/08/24 History Allergies Allergy/AdvReac Type Severity Reaction Status Date / Time acetaminophen (From Lortab) Allergy Vomiting Verified 08/23/24 13:01 hydrocodone (From Lortab) Allergy Vomiting Verified 08/23/24 13:01 Vital Signs Vital Signs - 24 hr 11/07/24 23:16 11/08/24 03:31 11/08/24 04:00 Temperature 98.4 F 98.9 F Pulse Rate 120 H 105 H 88 Respiratory Rate 20 19 16 Blood Pressure 139/71 133/72 118/76 Pulse Oximetry 96 97 94 Oxygen Delivery Room Air 11/08/24 04:05 11/08/24 04:27 11/08/24 06:39 Temperature 99.8 F H Pulse Rate 72 105 H Respiratory Rate 16 16 Blood Pressure 128/87 111/43 L Pulse Oximetry 97 94 Oxygen Delivery Room Air 11/08/24 08:00 11/08/24 08:00 11/08/24 09:27 Temperature 97.9 F Pulse Rate 96 Respiratory Rate 18 Blood Pressure 96/43 L Pulse Oximetry 94 91 Oxygen Delivery Room Air Room Air 11/08/24 12:00 11/08/24 12:16 11/08/24 16:00 Temperature 97.6 F 97.2 F L Pulse Rate 93 94 88 Respiratory Rate 20 18 Blood Pressure 123/61 108/60 Pulse Oximetry 97 97 Oxygen Delivery 11/08/24 20:00 11/08/24 20:45 11/08/24 21:39 Temperature 98.2 F Pulse Rate 76 84 Respiratory Rate 18 Blood Pressure 98/41 L 124/76 Pulse Oximetry 96 93 Oxygen Delivery 11/08/24 21:42 Temperature Pulse Rate 84 Respiratory Rate Blood Pressure Pulse Oximetry Oxygen Delivery Exam Narrative: Weight 143.3 kg BMI 44.1 Const: Other: Morbidly obese, no acute distress, sitting up on the into the bed with BiPAP in place HENMT: Other: BiPAP in place patient removed BiPAP for discussion, head is normocephalic atraumatic, mucous membranes are tacky with dried mucus, posterior oropharynx is crowded, no oral pharyngeal erythema Eyes: Other: Pupils are equal and reactive, no scleral icterus, no conjunctival pallor Neck: Other: Large neck circumference, trachea midline Resp: Other: Clear to auscultation bilaterally, no increased work of breathing Cardio: Other: Regular rate, regular rhythm, 2+ bilateral radial pedal pulses GI: Other: Significant tenderness in the left lower quadrant to palpation, abdomen is otherwise soft no other localizing abdominal tenderness, patient does have a small ridge of went feels like scar keloid in the lower abdomen at the site of his prior panniculectomy, difficult to assess for organomegaly due to the patient's body habitus, positive bowel sounds Skin: Other: Non jaundice, no pallor Neuro: Other: Alert oriented, speech is clear, no facial asymmetry, no localizing neurologic deficits noted during the course of conversation Extrem: Other: Chronic venous stasis changes of bilateral lower extremities, no clubbing, no cyanosis, no edema Psych: Other: Appropriate mood and affect, pleasant and cooperative, judgment and insight intact Results Labs 11/09/24 05:05 11/09/24 05:05 Labs: Laboratory Tests 11/08/24 04:38 11/08/24 04:38 11/07/24 11/08/24 11/08/24 23:22 00:57 01:16 WBC 14.9 H RBC 4.20 L Hgb 12.9 L Hct 39.9 L MCV 95.0 MCH 30.7 MCHC 32.3 RDW 14.2 Plt Count 256 MPV 9.5 Immature Gran % (Auto) 0.5 Neut % (Auto) 86.5 H Lymph % (Auto) 6.2 L Day % (Auto) 6.2 Eos % (Auto) 0.5 Baso % (Auto) 0.1 L Lymph # (Auto) 0.92 Day # (Auto) 0.9 H Eos # (Auto) 0.1 Baso # (Auto) 0.0 Abs Immat Gran (auto) 0.07 H Absolute Neuts (auto) 12.8 H Absolute Nucleated RBC 0.000 Nucleated RBC % 0.0 Sodium 138 Potassium 4.7 Chloride 104 Carbon Dioxide 25 Anion Gap 9 BUN 31 H Creatinine 1.39 H Estim Creat Clear Calc 68 Estimated GFR 51 L Glucose 173 H POC Capillary Glucose 174 H Lactic Acid 1.5 Calcium 9.6 Total Bilirubin 0.7 AST 24 ALT 28 Alkaline Phosphatase 69 Total Protein 7.0 Albumin 3.9 Lipase 133 Urine Color Yellow Urine Appearance Clear Urine pH 5.0 Ur Specific [place] 1.018 Urine Protein Negative Urine Glucose (UA) Negative Urine Ketones Negative Ur Blood (Man) Negative Urine Nitrate Negative Urine Bilirubin Negative Urine Urobilinogen 0.2 Leukocyte Esterase Rfl Negative 11/08/24 11/08/24 11/08/24 04:38 06:41 08:16 WBC 16.4 H RBC 4.14 L Hgb 12.8 L Hct 42.4 MCV 102.4 H D MCH 30.9 MCHC 30.2 L RDW 14.6 H Plt Count 231 MPV 10.5 H Immature Gran % (Auto) 0.6 H Neut % (Auto) 88.3 H Lymph % (Auto) 4.9 L Day % (Auto) 5.9 Eos % (Auto) 0.1 Baso % (Auto) 0.2 Lymph # (Auto) 0.80 L Day # (Auto) 1.0 H Eos # (Auto) 0.0 Baso # (Auto) 0.0 Abs Immat Gran (auto) 0.10 H Absolute Neuts (auto) 14.5 H Absolute Nucleated RBC 0.000 Nucleated RBC % 0.0 Sodium 139 Potassium 4.7 Chloride 104 Carbon Dioxide 23 Anion Gap 12 BUN 29 H Creatinine 1.17 Estim Creat Clear Calc 81 Estimated GFR > 60 Glucose 152 H POC Capillary Glucose 149 H 143 H Lactic Acid Calcium 9.3 Total Bilirubin AST ALT Alkaline Phosphatase Total Protein Albumin Lipase Urine Color Urine Appearance Urine pH Ur Specific [place] Urine Protein Urine Glucose (UA) Urine Ketones Ur Blood (Man) Urine Nitrate Urine Bilirubin Urine Urobilinogen Leukocyte Esterase Rfl 11/08/24 11/08/24 11:57 17:13 WBC RBC Hgb Hct MCV MCH MCHC RDW Plt Count MPV Immature Gran % (Auto) Neut % (Auto) Lymph % (Auto) Day % (Auto) Eos % (Auto) Baso % (Auto) Lymph # (Auto) Day # (Auto) Eos # (Auto) Baso # (Auto) Abs Immat Gran (auto) Absolute Neuts (auto) Absolute Nucleated RBC Nucleated RBC % Sodium Potassium Chloride Carbon Dioxide Anion Gap BUN Creatinine Estim Creat Clear Calc Estimated GFR Glucose POC Capillary Glucose 120 H 107 H Lactic Acid Calcium Total Bilirubin AST ALT Alkaline Phosphatase Total Protein Albumin Lipase Urine Color Urine Appearance Urine pH Ur Specific [place] Urine Protein Urine Glucose (UA) Urine Ketones Ur Blood (Man) Urine Nitrate Urine Bilirubin Urine Urobilinogen Leukocyte Esterase Rfl Microbiology 11/08/24 04:38 Blood Blood Culture - Preliminary 11/08/24 04:38 Blood Blood Culture - Preliminary Impressions Abdomen/Pelvis CT 11/08/24 06:03 Impression: Acute sigmoid diverticulitis with pericolonic phlegmonous change and small amount of local free air, compatible with perforation. No mature drainable abscess. Quality VTE Prophylaxis VTE prophylaxis: pharmacologic ordered (Lovenox 40 mg subQ daily.) Hospitalist MIPS Advance Care Plan I have confirmed that the patient's Advanced Care Plan is present, code status is documented, or surrogate decision maker is listed in patient medical record.: Yes Medication Reconciliation I have utilized all available resources to obtain, update and review the patients current medications (includes all prescriptions, OTC, herbals, cannabis, and nutritional supplements).: Yes
[2024-11-08 23:13] LABS: Glucose Point of Care 94 mg/dl (65-105)
[2024-11-09] VITALS (10 sets, daily range): BP systolic 100–132; BP diastolic 46–73; PULSE 68–81; RESP 16–18; TEMP 36.3–37; O2SAT 91–99
[2024-11-09] MEDS: KCL 20 MEQ/D5/0.9% SOD CHL 1,000 ML 100 ML IV CONT (04:03)
[2024-11-09] MEDS: PIPERACILLN/TAZ 3.375GM/NS50ML 3.375 GM/50 ML BAG IVPB ×4 (05:05→23:19)
[2024-11-09 05:49] LABS: Basophils Percent Auto 0.2 % (0.2-1.2); Eosinophils Absolute Auto 0.1 K/mm3 (0-0.3); Eosinophils Percent Auto 0.4 % (0-4.4); Hematocrit 38.9 % (42.0-52.0); Hemoglobin 11.8 g/dL (14.0-18.0); Immature Granulocyte Absolute 0.04 K/mm3 (0.00-0.031); Immature Granulocyte Percent A 0.3 % (0-0.5); Lymphocytes Absolute Auto 0.86 K/mm3 (0.9-3.2); Lymphocytes Percent Auto 6.6 % (18.3-44.2); Mean Corpuscular HGB Conc 30.3 g/dl (32-36); Mean Corpuscular Hemoglobin 30.2 pg (26-34); Mean Corpuscular Volume 99.5 fl (80-100); Mean Platelet Volume 10.1 fl (7.4-10.4); Monocytes Absolute Auto 0.8 K/mm3 (0.1-0.6); Monocytes Percent Auto 5.8 % (2.6-8.5); Neutrophils Absolute Auto 11.3 K/mm3 (1.3-6.7); Neutrophils Percent Auto 86.7 % (45.5-73.1); Platelet Count Result 185 k/mm3 (150-375); Red Blood Count 3.91 M/mm3 (4.6-6.20); Red Cell Distribution Width 14.5 % (11.5-14.5); White Blood Count 13.1 K/mm3 (4.5-10.0)
[2024-11-09 06:15] LABS: Glucose Point of Care 119 mg/dl (65-105)
[2024-11-09 06:25] LABS: Anion Gap 6 mmol/L (4-12); Blood Urea Nitrogen 26 mg/dL (9-20); Calcium 8.8 mg/dL (8.4-10.2); Carbon Dioxide 29 mmol/L (22-30); Chloride 105 mmol/L (98-107); Estimated CRCL calculation 71 ml/min; Estimated Glomerular Filt Rate 53; Glucose 123 mg/dL (65-110); Potassium 4.3 mmol/L (3.4-5.0); Sodium 140 mmol/L (137-145)
[2024-11-09 06:37] LABS: CRP 18.7 mg/dL (<1.0)
--- NOTE | 2024-11-09 07:15 | P.PNGS_ITS ---
Progress Note: A&P Assessment and Plan (1) Diverticulitis of large intestine with perforation: Qualifiers: Diverticulitis bleeding: without bleeding Qualified Code(s): K57.20 - Diverticulitis of large intestine with perforation and abscess without bleeding Code(s): K57.20 - Diverticulitis of large intestine with perforation and abscess without bleeding Status: Acute Assessment and Plan: Improving. White blood cell count a little better. Pain and tenderness much better. Will go ahead and try clear liquids today. Continue IV antibiotics. (2) Non-insulin dependent diabetes mellitus: Status: Chronic Assessment and Plan: Per hospitalist management (3) Essential (primary) hypertension: Code(s): I10 - Essential (primary) hypertension Status: Chronic Assessment and Plan: Continue home meds (4) Obstructive sleep apnea on CPAP: Code(s): G47.33 - Obstructive sleep apnea (adult) (pediatric) Status: Acute Assessment and Plan: On home CPAP Subjective Subjective Date/Time Seen: 11/09/24 07:15 Patient reports: feels better, pain is less, voiding w/o difficulty and afebrile Review of Systems Review of Systems: All systems reviewed & are unremarkable except as noted in HPI and below (HPI) Exam Const: General: comfortable, no acute distress and obese Nutritional Appearance: overweight Orientation/consciousness: patient oriented x3 GI: Inspection: obesity and scar GI Palp: Yes Soft to palpation, Yes Tenderness to palpation present (GI) (Left lower quadrant, less tender than yesterday) and Yes Guarding due to palpation present (GI) Neuro: General: patient oriented x3 and no focal motor deficits Extrem: General: no calf tenderness and no edema Psych: Affect: normal affect Insight: Good insight present (Psych) Judgement: Good judgement present (Psych) Objective Data Vital Signs Vital Signs: Vital Signs - 24 hr 11/08/24 08:00 11/08/24 08:00 11/08/24 09:27 Temperature 36.6 C Pulse Rate 96 Respiratory Rate 18 Blood Pressure 96/43 L Pulse Oximetry 94 91 Oxygen Delivery Room Air Room Air 11/08/24 12:00 11/08/24 12:16 11/08/24 16:00 Temperature 36.4 C 36.2 C L Pulse Rate 93 94 88 Respiratory Rate 20 18 Blood Pressure 123/61 108/60 Pulse Oximetry 97 97 Oxygen Delivery 11/08/24 20:00 11/08/24 20:45 11/08/24 21:39 Temperature 36.8 C Pulse Rate 76 84 Respiratory Rate 18 Blood Pressure 98/41 L 124/76 Pulse Oximetry 96 93 Oxygen Delivery CPAP 11/08/24 21:42 11/08/24 23:18 11/09/24 01:20 Temperature 36.6 C Pulse Rate 84 83 75 Respiratory Rate 18 Blood Pressure 118/66 Pulse Oximetry 96 94 Oxygen Delivery CPAP 11/09/24 03:38 Temperature 36.8 C Pulse Rate 81 Respiratory Rate 18 Blood Pressure 106/73 Pulse Oximetry 92 Oxygen Delivery Intake/Output Intake/Output: Intake & Output 11/06/24 11/07/24 11/08/24 11/09/24 23:59 23:59 23:59 23:59 Intake Total 2250 1100 Output Total 2 Balance 2248 1100 Meds/Results Medications: Active Medications Generic Name Dose Route Start Last Admin Trade Name Freq PRN Reason Stop Dose Admin Acetaminophen 500 mg 11/08/24 14:17 Acetaminophen 500 Mg Tablet PO Q6H PRN Pain Rated 1-3 Allopurinol 300 mg 11/08/24 09:00 11/08/24 12:16 Allopurinol 300 Mg Tablet PO 300 mg DAILY MYLES Administration Aspirin 81 mg 11/08/24 21:00 11/08/24 21:43 Aspirin 81 Mg Enteric Tablet PO 81 mg HS MYLES Administration Dextrose 12.5 gm 11/08/24 15:58 Dextrose 50% 25 Gm/50 Ml Syringe IV PUSH PRN PRN Hypoglycemia Protocol Enoxaparin Sodium 40 mg 11/09/24 09:00 Enoxaparin 40 Mg/0.4 Ml Syringe SUB-Q DAILY MYLES Glucagon 1 mg 11/08/24 15:58 Glucagon For Inj 1 Mg Vial IM PRN PRN Hypoglycemia Protocol Glucose 15 gm 11/08/24 15:58 Glucose Oral Gel 15 Gm Of Glucse In 37.5 Gm Tube PO PRN PRN Hypoglycemia Protocol Piperacillin/Tazobactam/Dextrose 3.375 gm in 50 mls @ 100 mls/hr 11/08/24 12:00 11/09/24 05:35 Zosyn 3.375 Gm/Ns 50 Ml IVPB Infused Q6H MYLES Infusion Potassium Chloride/Dextrose/Sod Cl 1,000 mls @ 100 mls/hr 11/08/24 14:15 11/09/24 04:03 Kcl 20 Meq/D5/0.9% Sod Chl IV CONT 100 mls/hr .Q10H MYLES Administration Ibuprofen 800 mg in 200 mls @ 400 mls/hr 11/08/24 14:17 Caldolor 800 Mg/200 Ml IVPB Q6H PRN Breakthrough Pain Rated 1-3 IF Dextrose 1,000 mls @ 100 mls/hr 11/08/24 15:58 Dextrose 5% 1,000 Ml IVPB PRN PRN Hypoglycemia Protocol Insulin Aspart 2 - 5 units 11/08/24 18:00 11/09/24 06:14 Insulin Aspart (*Bkc) 100 Units/Ml SUB-Q Not Given Q6HR [facility] Protocol Metoprolol Succinate 100 mg 11/08/24 14:00 11/08/24 21:42 Metoprolol Succinate Ext Rel 100 Mg Tabcr PO 100 mg Q8H MYLES Administration Morphine Sulfate 2 mg 11/08/24 14:17 Morphine Sulfate (*Crx) 2 Mg/Ml Inj IV PUSH Q2H PRN Breakthrough Pain Rated 4-6 or NPO Morphine Sulfate 4 mg 11/08/24 14:17 11/08/24 21:44 Morphine Sulfate (*Crx) 4 Mg/Ml Inj IV PUSH 4 mg Q2H PRN Administration Breakthrough Pain Rated 7-10 or NPO Naloxone HCl 0.1 mg 11/08/24 14:17 Naloxone Hcl 0.4 Mg/Ml Vial IV PUSH Q2M PRN Opiate Reversal Ondansetron HCl 4 mg 11/08/24 03:31 11/08/24 21:45 Ondansetron Inj 4 Mg/2 Ml Vial IV PUSH 4 mg Q8H PRN Administration Nausea And Vomiting Spironolactone 25 mg 11/08/24 09:00 11/08/24 12:16 Spironolactone 25 Mg Tablet BY MOUTH 25 mg DAILY MYLES Administration Valsartan 160 mg 11/08/24 13:00 11/08/24 14:11 Valsartan 160 Mg Tablet PO 12/08/24 12:59 Not Given DAILY [facility] Radiology Results: ITS Impressions Abdomen/Pelvis CT 11/08/24 06:03 Impression: Acute sigmoid diverticulitis with pericolonic phlegmonous change and small amount of local free air, compatible with perforation. No mature drainable abscess. Labs Labs: Laboratory Results - last 24 hr 11/08/24 11/08/24 11/08/24 04:38 08:16 11:57 WBC 16.4 H RBC 4.14 L Hgb 12.8 L Hct 42.4 MCV 102.4 H D MCH 30.9 MCHC 30.2 L RDW 14.6 H Plt Count 231 MPV 10.5 H Immature Gran % (Auto) 0.6 H Neut % (Auto) 88.3 H Lymph % (Auto) 4.9 L [place] % (Auto) 5.9 Eos % (Auto) 0.1 Baso % (Auto) 0.2 Lymph # (Auto) 0.80 L [place] # (Auto) 1.0 H Eos # (Auto) 0.0 Baso # (Auto) 0.0 Abs Immat Gran (auto) 0.10 H Absolute Neuts (auto) 14.5 H Absolute Nucleated RBC 0.000 Nucleated RBC % 0.0 Sodium 139 Potassium 4.7 Chloride 104 Carbon Dioxide 23 Anion Gap 12 BUN 29 H Creatinine 1.17 Estim Creat Clear Calc 81 Estimated GFR > 60 Glucose 152 H POC Capillary Glucose 143 H 120 H Calcium 9.3 C-Reactive Protein 11/08/24 11/08/24 11/09/24 17:13 23:11 05:05 WBC 13.1 H RBC 3.91 L Hgb 11.8 L Hct 38.9 L MCV 99.5 MCH 30.2 MCHC 30.3 L RDW 14.5 Plt Count 185 MPV 10.1 Immature Gran % (Auto) 0.3 Neut % (Auto) 86.7 H Lymph % (Auto) 6.6 L [place] % (Auto) 5.8 Eos % (Auto) 0.4 Baso % (Auto) 0.2 Lymph # (Auto) 0.86 L [place] # (Auto) 0.8 H Eos # (Auto) 0.1 Baso # (Auto) 0.0 Abs Immat Gran (auto) 0.04 H Absolute Neuts (auto) 11.3 H Absolute Nucleated RBC 0.000 Nucleated RBC % 0.0 Sodium 140 Potassium 4.3 Chloride 105 Carbon Dioxide 29 Anion Gap 6 BUN 26 H Creatinine 1.35 H Estim Creat Clear Calc 71 Estimated GFR 53 L Glucose 123 H POC Capillary Glucose 107 H 94 Calcium 8.8 C-Reactive Protein 18.7 H 01/22/25 06:12 WBC RBC Hgb Hct MCV MCH MCHC RDW Plt Count MPV Immature Gran % (Auto) Neut % (Auto) Lymph % (Auto) [place] % (Auto) Eos % (Auto) Baso % (Auto) Lymph # (Auto) [place] # (Auto) Eos # (Auto) Baso # (Auto) Abs Immat Gran (auto) Absolute Neuts (auto) Absolute Nucleated RBC Nucleated RBC % Sodium Potassium Chloride Carbon Dioxide Anion Gap BUN Creatinine Estim Creat Clear Calc Estimated GFR Glucose POC Capillary Glucose 119 H Calcium C-Reactive Protein
[2024-11-09] MEDS: ENOXAPARIN 40 MG/0.4 ML SYRINGE SUB-Q (08:58)
[2024-11-09] MEDS: METOPROLOL SUCCINATE EXT REL 100 MG TABCR 200 MG PO (08:58)
[2024-11-09] MEDS: VALSARTAN 160 MG TABLET PO (08:58)
[2024-11-09] MEDS: SPIRONOLACTONE 25 MG TABLET BY MOUTH (08:58)
[2024-11-09] MEDS: allopurinoL 300 MG TABLET PO (08:58)
--- NOTE | 2024-11-09 12:26 | PM.IMPN ---
Progress Note: A&P Assessment and Plan (1) Diverticulitis of large intestine with perforation: Qualifiers: Diverticulitis bleeding: without bleeding Qualified Code(s): K57.20 - Diverticulitis of large intestine with perforation and abscess without bleeding Code(s): K57.20 - Diverticulitis of large intestine with perforation and abscess without bleeding Status: Acute Assessment and Plan: - CT abd/pelvis: Acute sigmoid diverticulitis with pericolonic phlegmonous change and small amount of local free air, compatible with perforation. No mature drainable abscess. - General surgery following. - Currently on Zosyn and we'll continue. - Currently on clears diet and advancement per general surgery. - Continue to follow cultures. - Continue pain meds PRN. (2) Non-insulin dependent diabetes mellitus: Status: Chronic Assessment and Plan: - A1C 6.8 on 09/11. - Blood glucose levels currently well controlled. - Currently poor PO intake and home dose insulin held. - Continue Low-dose SSI. - Continue to monitor for now. (3) Essential (primary) hypertension: Code(s): I10 - Essential (primary) hypertension Status: Chronic Assessment and Plan: - BP well controlled. - Continue home meds for now. (4) Obstructive sleep apnea on CPAP: Code(s): G47.33 - Obstructive sleep apnea (adult) (pediatric) Status: Acute Assessment and Plan: - Continue CPAP. Plan Diet: Clears, advance per general surgery. DVT PPx: Lovenox SQ. Time Spent With Patient Time with patient: 15 - 25 minutes Subjective Date/time seen: 11/09/24 10:25 Patient states he feels alright and his symptoms are improving. States the pain is much improved and hasn't had any pain medications this AM. Also states just started on clears briefly and has only tried water so far and he did well. Interval history: Patient calm seated bedside and looks to be in no acute distress. Review of Systems Review of Systems: All systems reviewed & are unremarkable except as noted in HPI and below Exam Narrative: General: Well appearing, no acute distress. HEENT: Atraumatic, PERRL, EOMI, moist mucosa. NECK: Supple. Lungs: Diminished but clear. Heart: RRR, no murmurs. Abdomen: Soft, non-tender, obese, non-distended, +ve BS X4 Quadrants. Neuro: Well oriented. CN II-XII grossly intact. Psych: Pleasant and co-operative. Objective Data Vital Signs Vital Signs: Vital Signs - 24 hr 11/08/24 16:00 11/08/24 20:00 11/08/24 20:45 Temperature 97.2 F L 98.2 F Pulse Rate 88 76 84 Respiratory Rate 18 18 Blood Pressure 108/60 98/41 L Pulse Oximetry 97 96 93 Oxygen Delivery CPAP 11/08/24 21:39 11/08/24 21:42 11/08/24 23:18 Temperature 97.9 F Pulse Rate 84 83 Respiratory Rate 18 Blood Pressure 124/76 118/66 Pulse Oximetry 96 Oxygen Delivery 11/09/24 01:20 11/09/24 03:38 11/09/24 08:15 Temperature 98.3 F 97.5 F L Pulse Rate 75 81 80 Respiratory Rate 18 17 Blood Pressure 106/73 110/68 Pulse Oximetry 94 92 98 Oxygen Delivery CPAP 11/09/24 08:55 11/09/24 08:58 11/09/24 12:08 Temperature 98.3 F Pulse Rate 74 70 Respiratory Rate 16 Blood Pressure 100/62 Pulse Oximetry 98 98 Oxygen Delivery Room Air Intake/Output Intake/Output: Intake & Output 11/06/24 11/07/24 11/08/24 11/09/24 23:59 23:59 23:59 23:59 Intake Total 2250 1593.3 Output Total 2 Balance 2248 1593.3 Meds/Results Medications: Active Medications Generic Name Dose Route Start Last Admin Trade Name Freq PRN Reason Stop Dose Admin Acetaminophen 500 mg 11/08/24 14:17 Acetaminophen 500 Mg Tablet PO Q6H PRN Pain Rated 1-3 Allopurinol 300 mg 11/08/24 09:00 11/09/24 08:58 Allopurinol 300 Mg Tablet PO 300 mg DAILY MYLES Administration Aspirin 81 mg 11/08/24 21:00 11/08/24 21:43 Aspirin 81 Mg Enteric Tablet PO 81 mg HS MYLES Administration Dextrose 12.5 gm 11/08/24 15:58 Dextrose 50% 25 Gm/50 Ml Syringe IV PUSH PRN PRN Hypoglycemia Protocol Enoxaparin Sodium 40 mg 11/09/24 09:00 11/09/24 08:58 Enoxaparin 40 Mg/0.4 Ml Syringe SUB-Q 40 mg DAILY MYLES Administration Glucagon 1 mg 11/08/24 15:58 Glucagon For Inj 1 Mg Vial IM PRN PRN Hypoglycemia Protocol Glucose 15 gm 11/08/24 15:58 Glucose Oral Gel 15 Gm Of Glucse In 37.5 Gm Tube PO PRN PRN Hypoglycemia Protocol Piperacillin/Tazobactam/Dextrose 3.375 gm in 50 mls @ 100 mls/hr 11/08/24 12:00 11/09/24 05:35 Zosyn 3.375 Gm/Ns 50 Ml IVPB Infused Q6H MYLES Infusion Potassium Chloride/Dextrose/Sod Cl 1,000 mls @ 80 mls/hr 11/08/24 14:15 11/09/24 08:59 Kcl 20 Meq/D5/0.9% Sod Chl IV CONT 80 mls/hr .[id number] MYLES Infusion Ibuprofen 800 mg in 200 mls @ 400 mls/hr 11/08/24 14:17 Caldolor 800 Mg/200 Ml IVPB Q6H PRN Breakthrough Pain Rated 1-3 IF Dextrose 1,000 mls @ 100 mls/hr 11/08/24 15:58 Dextrose 5% 1,000 Ml IVPB PRN PRN Hypoglycemia Protocol Insulin Aspart 2 - 5 units 11/08/24 18:00 11/09/24 06:14 Insulin Aspart (*Bkc) 100 Units/Ml SUB-Q Not Given Q6HR [facility] Protocol Metoprolol Succinate 200 mg 11/09/24 09:00 11/09/24 08:58 Metoprolol Succinate Ext Rel 100 Mg Tabcr PO 200 mg QAM MYLES Administration Metoprolol Succinate 100 mg 11/09/24 21:00 Metoprolol Succinate Ext Rel 100 Mg Tabcr PO QHS MYLES Morphine Sulfate 2 mg 11/08/24 14:17 Morphine Sulfate (*Crx) 2 Mg/Ml Inj IV PUSH Q2H PRN Breakthrough Pain Rated 4-6 or NPO Morphine Sulfate 4 mg 11/08/24 14:17 11/08/24 21:44 Morphine Sulfate (*Crx) 4 Mg/Ml Inj IV PUSH 4 mg Q2H PRN Administration Breakthrough Pain Rated 7-10 or NPO Naloxone HCl 0.1 mg 11/08/24 14:17 Naloxone Hcl 0.4 Mg/Ml Vial IV PUSH Q2M PRN Opiate Reversal Ondansetron HCl 4 mg 11/08/24 03:31 11/08/24 21:45 Ondansetron Inj 4 Mg/2 Ml Vial IV PUSH 4 mg Q8H PRN Administration Nausea And Vomiting Oxycodone/Acetaminophen 1 tablet 11/09/24 07:22 Oxycodone/Acetaminophen (*Crx) 5-325 Mg Tablet PO Q4H PRN Pain Rated 4-6 Spironolactone 25 mg 11/08/24 09:00 11/09/24 08:58 Spironolactone 25 Mg Tablet BY MOUTH 25 mg DAILY MYLES Administration Valsartan 160 mg 11/08/24 13:00 11/09/24 08:58 Valsartan 160 Mg Tablet PO 12/08/24 12:59 160 mg DAILY MYLES Administration Radiology Results: ITS Impressions Abdomen/Pelvis CT 11/08/24 06:03 Impression: Acute sigmoid diverticulitis with pericolonic phlegmonous change and small amount of local free air, compatible with perforation. No mature drainable abscess. Labs Labs: Laboratory Results - last 24 hr 11/08/24 11/08/24 11/09/24 17:13 23:11 05:05 WBC 13.1 H RBC 3.91 L Hgb 11.8 L Hct 38.9 L MCV 99.5 MCH 30.2 MCHC 30.3 L RDW 14.5 Plt Count 185 MPV 10.1 Immature Gran % (Auto) 0.3 Neut % (Auto) 86.7 H Lymph % (Auto) 6.6 L [place] % (Auto) 5.8 Eos % (Auto) 0.4 Baso % (Auto) 0.2 Lymph # (Auto) 0.86 L [place] # (Auto) 0.8 H Eos # (Auto) 0.1 Baso # (Auto) 0.0 Abs Immat Gran (auto) 0.04 H Absolute Neuts (auto) 11.3 H Absolute Nucleated RBC 0.000 Nucleated RBC % 0.0 Sodium 140 Potassium 4.3 Chloride 105 Carbon Dioxide 29 Anion Gap 6 BUN 26 H Creatinine 1.35 H Estim Creat Clear Calc 71 Estimated GFR 53 L Glucose 123 H POC Capillary Glucose 107 H 94 Calcium 8.8 C-Reactive Protein 18.7 H 11/09/24 06:12 WBC RBC Hgb Hct MCV MCH MCHC RDW Plt Count MPV Immature Gran % (Auto) Neut % (Auto) Lymph % (Auto) [place] % (Auto) Eos % (Auto) Baso % (Auto) Lymph # (Auto) [place] # (Auto) Eos # (Auto) Baso # (Auto) Abs Immat Gran (auto) Absolute Neuts (auto) Absolute Nucleated RBC Nucleated RBC % Sodium Potassium Chloride Carbon Dioxide Anion Gap BUN Creatinine Estim Creat Clear Calc Estimated GFR Glucose POC Capillary Glucose 119 H Calcium C-Reactive Protein Quality VTE Prophylaxis VTE prophylaxis: mechanical ordered and pharmacologic ordered Hospitalist MIPS Advance Care Plan I have confirmed that the patient's Advanced Care Plan is present, code status is documented, or surrogate decision maker is listed in patient medical record.: Yes Medication Reconciliation I have utilized all available resources to obtain, update and review the patients current medications (includes all prescriptions, OTC, herbals, cannabis, and nutritional supplements).: Yes
[2024-11-09 12:37] LABS: Glucose Point of Care 128 mg/dl (65-105)
[2024-11-09] MEDS: KCL 20 MEQ/D5/0.9% SOD CHL 1,000 ML 80 ML IV CONT (17:04)
[2024-11-09 18:02] LABS: Glucose Point of Care 110 mg/dl (65-105)
[2024-11-09] MEDS: ASPIRIN 81 MG ENTERIC TABLET PO (20:48)
[2024-11-09] MEDS: METOPROLOL SUCCINATE EXT REL 100 MG TABCR PO (20:51)
[2024-11-09 21:21] LABS: Glucose Point of Care 113 mg/dl (65-105)
[2024-11-09] MEDS: ONDANSETRON INJ 4 MG/2 ML VIAL IV PUSH (22:43)
[2024-11-09] MEDS: MELATONIN 3 MG TABLET PO (22:44)
[2024-11-10] VITALS (7 sets, daily range): BP systolic 103–123; BP diastolic 49–72; PULSE 69–80; RESP 18–22; TEMP 36.3–36.8; O2SAT 95–100
[2024-11-10] MEDS: PIPERACILLN/TAZ 3.375GM/NS50ML 3.375 GM/50 ML BAG IVPB ×4 (05:13→23:48)
[2024-11-10] MEDS: KCL 20 MEQ/D5/0.9% SOD CHL 1,000 ML 80 ML IV CONT (05:15)
[2024-11-10 06:22] LABS: Basophils Percent Auto 0.1 % (0.2-1.2); Eosinophils Absolute Auto 0.2 K/mm3 (0-0.3); Eosinophils Percent Auto 2.1 % (0-4.4); Hematocrit 34.6 % (42.0-52.0); Hemoglobin 10.8 g/dL (14.0-18.0); Immature Granulocyte Absolute 0.03 K/mm3 (0.00-0.031); Immature Granulocyte Percent A 0.4 % (0-0.5); Lymphocytes Absolute Auto 0.93 K/mm3 (0.9-3.2); Lymphocytes Percent Auto 11.7 % (18.3-44.2); Mean Corpuscular HGB Conc 31.2 g/dl (32-36); Mean Corpuscular Hemoglobin 30.4 pg (26-34); Mean Corpuscular Volume 97.5 fl (80-100); Mean Platelet Volume 10.3 fl (7.4-10.4); Monocytes Absolute Auto 0.6 K/mm3 (0.1-0.6); Monocytes Percent Auto 7.8 % (2.6-8.5); Neutrophils Absolute Auto 6.2 K/mm3 (1.3-6.7); Neutrophils Percent Auto 77.9 % (45.5-73.1); Platelet Count Result 192 k/mm3 (150-375); Red Blood Count 3.55 M/mm3 (4.6-6.20); Red Cell Distribution Width 14.2 % (11.5-14.5); White Blood Count 7.9 K/mm3 (4.5-10.0)
[2024-11-10 07:06] LABS: Anion Gap 6 mmol/L (4-12); Blood Urea Nitrogen 20 mg/dL (9-20); CRP 13.6 mg/dL (<1.0); Calcium 8.3 mg/dL (8.4-10.2); Carbon Dioxide 26 mmol/L (22-30); Chloride 106 mmol/L (98-107); Estimated CRCL calculation 86 ml/min; Estimated Glomerular Filt Rate > 60; Glucose 114 mg/dL (65-110); Potassium 4.2 mmol/L (3.4-5.0); Sodium 138 mmol/L (137-145)
[2024-11-10 08:01] LABS: Glucose Point of Care 119 mg/dl (65-105)
[2024-11-10] MEDS: allopurinoL 300 MG TABLET PO (08:38)
[2024-11-10] MEDS: ENOXAPARIN 40 MG/0.4 ML SYRINGE SUB-Q (08:38)
[2024-11-10] MEDS: SPIRONOLACTONE 25 MG TABLET BY MOUTH (08:38)
[2024-11-10] MEDS: VALSARTAN 160 MG TABLET PO (08:38)
[2024-11-10] MEDS: METOPROLOL SUCCINATE EXT REL 100 MG TABCR 200 MG PO (08:38)
[2024-11-10] MEDS: polyethylene glycoL 3350 17 GM POWD.PACK PO (09:59)
[2024-11-10] MEDS: BISACODYL 5 MG TABLET EC PO (09:59)
--- NOTE | 2024-11-10 11:28 | PM.PNGS ---
Progress Note: A&P Assessment and Plan (1) Diverticulitis of large intestine with perforation: Qualifiers: Diverticulitis bleeding: without bleeding Qualified Code(s): K57.20 - Diverticulitis of large intestine with perforation and abscess without bleeding Code(s): K57.20 - Diverticulitis of large intestine with perforation and abscess without bleeding Status: Acute Assessment and Plan: Continues to improve. Will advance to low-fiber diet. Plan for him to go home tomorrow on low-fiber diet. Will ask dietitian to explained this diet to the patient and his . Also plan for him to go home on oral antibiotics, probably another 5 days. He is doing well. CRP is decreasing. Will recheck labs again in a.m.. (2) Essential (primary) hypertension: Code(s): I10 - Essential (primary) hypertension Status: Chronic Assessment and Plan: On home meds (3) Non-insulin dependent diabetes mellitus: Status: Chronic Assessment and Plan: Hospitalist following (4) Obstructive sleep apnea on CPAP: Code(s): G47.33 - Obstructive sleep apnea (adult) (pediatric) Status: Acute Assessment and Plan: On CPAP at night Subjective Subjective Date/Time Seen: 11/10/24 11:28 Patient reports: feels better, pain is less, tolerating liquids well, voiding w/o difficulty, flatus and afebrile Review of Systems Review of Systems: All systems reviewed & are unremarkable except as noted in HPI and below (HPI) Exam Const: General: cooperative, comfortable, no acute distress, alert, awake and obese Nutritional Appearance: obese Orientation/consciousness: patient oriented x3 GI: Inspection: obesity, scar and no visible herniation GI Palp: Yes Soft to palpation, Yes Tenderness to palpation present (GI) (Slightly tender left lower quadrant with no guarding or rebound), No Hernia present and No Palpable mass present Neuro: General: patient oriented x3 and no focal motor deficits Extrem: General: no calf tenderness and no edema Psych: Affect: normal affect Insight: Good insight present (Psych) Judgement: Good judgement present (Psych) Objective Data Vital Signs Vital Signs: Vital Signs - 24 hr 11/09/24 12:08 11/09/24 17:40 11/09/24 20:00 Temperature 36.8 C 36.3 C L 37.0 C Pulse Rate 70 68 71 Respiratory Rate 16 16 18 Blood Pressure 100/62 126/72 111/46 L Pulse Oximetry 98 99 91 Oxygen Delivery 11/09/24 20:51 11/09/24 23:33 11/10/24 03:49 Temperature 36.4 C 36.8 C Pulse Rate 71 74 74 Respiratory Rate 18 18 Blood Pressure 132/59 L 103/53 L Pulse Oximetry 98 95 Oxygen Delivery 11/10/24 08:00 11/10/24 08:35 11/10/24 08:38 Temperature 36.3 C L Pulse Rate 69 78 Respiratory Rate 22 H Blood Pressure 123/57 L Pulse Oximetry 98 Oxygen Delivery Room Air Intake/Output Intake/Output: Intake & Output 11/07/24 11/08/24 11/09/24 11/10/24 23:59 23:59 23:59 23:59 Intake Total 2250 4370.0 1144.7 Output Total 2 Balance 2248 4370.0 1144.7 Meds/Results Medications: Active Medications Generic Name Dose Route Start Last Admin Trade Name Freq PRN Reason Stop Dose Admin Acetaminophen 500 mg 11/08/24 14:17 Acetaminophen 500 Mg Tablet PO Q6H PRN Pain Rated 1-3 Allopurinol 300 mg 11/08/24 09:00 11/10/24 08:38 Allopurinol 300 Mg Tablet PO 300 mg DAILY MYLES Administration Aspirin 81 mg 11/08/24 21:00 11/09/24 20:48 Aspirin 81 Mg Enteric Tablet PO 81 mg HS MYLES Administration Dextrose 12.5 gm 11/08/24 15:58 Dextrose 50% 25 Gm/50 Ml Syringe IV PUSH PRN PRN Hypoglycemia Protocol Enoxaparin Sodium 40 mg 11/09/24 09:00 11/10/24 08:38 Enoxaparin 40 Mg/0.4 Ml Syringe SUB-Q 40 mg DAILY MYLES Administration Glucagon 1 mg 11/08/24 15:58 Glucagon For Inj 1 Mg Vial IM PRN PRN Hypoglycemia Protocol Glucose 15 gm 11/08/24 15:58 Glucose Oral Gel 15 Gm Of Glucse In 37.5 Gm Tube PO PRN PRN Hypoglycemia Protocol Piperacillin/Tazobactam/Dextrose 3.375 gm in 50 mls @ 100 mls/hr 11/08/24 12:00 11/10/24 05:43 Zosyn 3.375 Gm/Ns 50 Ml IVPB Infused Q6H MYLES Infusion Ibuprofen 800 mg in 200 mls @ 400 mls/hr 11/08/24 14:17 Caldolor 800 Mg/200 Ml IVPB Q6H PRN Breakthrough Pain Rated 1-3 IF Dextrose 1,000 mls @ 100 mls/hr 11/08/24 15:58 Dextrose 5% 1,000 Ml IVPB PRN PRN Hypoglycemia Protocol Insulin Aspart 2 - 5 units 11/10/24 08:00 11/10/24 07:59 Insulin Aspart (*Bkc) 100 Units/Ml SUB-Q Not Given TIDWM [facility] Protocol Melatonin 3 mg 11/09/24 22:35 11/09/24 22:44 Melatonin 3 Mg Tablet PO 3 mg HS [facility] Administration Metoprolol Succinate 200 mg 11/09/24 09:00 11/10/24 08:38 Metoprolol Succinate Ext Rel 100 Mg Tabcr PO 200 mg QAM MYLES Administration Metoprolol Succinate 100 mg 11/09/24 21:00 11/09/24 20:51 Metoprolol Succinate Ext Rel 100 Mg Tabcr PO 100 mg QHS [facility] Administration Morphine Sulfate 2 mg 11/08/24 14:17 Morphine Sulfate (*Crx) 2 Mg/Ml Inj IV PUSH Q2H PRN Breakthrough Pain Rated 4-6 or NPO Morphine Sulfate 4 mg 11/08/24 14:17 11/08/24 21:44 Morphine Sulfate (*Crx) 4 Mg/Ml Inj IV PUSH 4 mg Q2H PRN Administration Breakthrough Pain Rated 7-10 or NPO Naloxone HCl 0.1 mg 11/08/24 14:17 Naloxone Hcl 0.4 Mg/Ml Vial IV PUSH Q2M PRN Opiate Reversal Ondansetron HCl 4 mg 11/08/24 03:31 11/09/24 22:43 Ondansetron Inj 4 Mg/2 Ml Vial IV PUSH 4 mg Q8H PRN Administration Nausea And Vomiting Oxycodone/Acetaminophen 1 tablet 11/09/24 07:22 Oxycodone/Acetaminophen (*Crx) 5-325 Mg Tablet PO Q4H PRN Pain Rated 4-6 Spironolactone 25 mg 11/08/24 09:00 11/10/24 08:38 Spironolactone 25 Mg Tablet BY MOUTH 25 mg DAILY [facility] Administration Valsartan 160 mg 11/08/24 13:00 11/10/24 08:38 Valsartan 160 Mg Tablet PO 12/08/24 12:59 160 mg DAILY MYLES Administration Radiology Results: ITS Impressions Abdomen/Pelvis CT 11/08/24 06:03 Impression: Acute sigmoid diverticulitis with pericolonic phlegmonous change and small amount of local free air, compatible with perforation. No mature drainable abscess. Labs Labs: Laboratory Results - last 24 hr 11/09/24 11/09/24 11/09/24 12:34 17:57 20:56 WBC RBC Hgb Hct MCV MCH MCHC RDW Plt Count MPV Immature Gran % (Auto) Neut % (Auto) Lymph % (Auto) [place] % (Auto) Eos % (Auto) Baso % (Auto) Lymph # (Auto) [place] # (Auto) Eos # (Auto) Baso # (Auto) Abs Immat Gran (auto) Absolute Neuts (auto) Absolute Nucleated RBC Nucleated RBC % Sodium Potassium Chloride Carbon Dioxide Anion Gap BUN Creatinine Estim Creat Clear Calc Estimated GFR Glucose POC Capillary Glucose 128 H 110 H 113 H Calcium C-Reactive Protein 11/10/24 11/10/24 05:29 07:55 WBC 7.9 RBC 3.55 L Hgb 10.8 L Hct 34.6 L MCV 97.5 MCH 30.4 MCHC 31.2 L RDW 14.2 Plt Count 192 MPV 10.3 Immature Gran % (Auto) 0.4 Neut % (Auto) 77.9 H Lymph % (Auto) 11.7 L [place] % (Auto) 7.8 Eos % (Auto) 2.1 Baso % (Auto) 0.1 L Lymph # (Auto) 0.93 [place] # (Auto) 0.6 Eos # (Auto) 0.2 Baso # (Auto) 0.0 Abs Immat Gran (auto) 0.03 Absolute Neuts (auto) 6.2 Absolute Nucleated RBC 0.000 Nucleated RBC % 0.0 Sodium 138 Potassium 4.2 Chloride 106 Carbon Dioxide 26 Anion Gap 6 BUN 20 Creatinine 1.10 Estim Creat Clear Calc 86 Estimated GFR > 60 Glucose 114 H POC Capillary Glucose 119 H Calcium 8.3 L C-Reactive Protein 13.6 H
[2024-11-10 12:12] LABS: Glucose Point of Care 101 mg/dl (65-105)
--- NOTE | 2024-11-10 12:41 | P.PNIM_ITS ---
Progress Note: A&P Assessment and Plan (1) Diverticulitis of large intestine with perforation: Qualifiers: Diverticulitis bleeding: without bleeding Qualified Code(s): K57.20 - Diverticulitis of large intestine with perforation and abscess without bleeding Code(s): K57.20 - Diverticulitis of large intestine with perforation and abscess without bleeding Status: Acute Assessment and Plan: - CT abd/pelvis: Acute sigmoid diverticulitis with pericolonic phlegmonous change and small amount of local free air, compatible with perforation. No mature drainable abscess. - General surgery following. - Currently on Zosyn and we'll continue and we'll consider PO in AM per surgery in anticipation of discharge. - Currently on low residue diet and nutrition consulted to educate pt and family. - Continue to follow cultures, NGTD. - Continue pain meds PRN. (2) Non-insulin dependent diabetes mellitus: Status: Chronic Assessment and Plan: - A1C 6.8 on 09/11. - Blood glucose levels currently well controlled. - Currently poor PO intake and home dose insulin held. - Continue Low-dose SSI. - Continue to monitor for now. (3) Essential (primary) hypertension: Code(s): I10 - Essential (primary) hypertension Status: Chronic Assessment and Plan: - BP well controlled. - Continue home meds for now. (4) Obstructive sleep apnea on CPAP: Code(s): G47.33 - Obstructive sleep apnea (adult) (pediatric) Status: Acute Assessment and Plan: - Continue CPAP. Plan Diet: Low fiber. DVT PPx: Lovenox SQ. Time Spent With Patient Time with patient: 15 - 25 minutes Subjective Date/time seen: 11/10/24 11:41 Patient seated bedside and states doing well with clears diet and hoping diet advancement per general surgery today. States still hasn't had a BM in 3-4 days and requesting laxative and stool softeners. Interval history: Patient calm bedside with on the side. Looks to be in no acute distress. Review of Systems Review of Systems: All systems reviewed & are unremarkable except as noted in HPI and below Exam Narrative: General: Well appearing, no acute distress. HEENT: Atraumatic, PERRL, EOMI, moist mucosa. NECK: Supple. Lungs: Diminished but clear. Heart: RRR, no murmurs. Abdomen: Soft, non-tender, obese, non-distended, +ve BS X4 Quadrants. Neuro: Well oriented. CN II-XII grossly intact. Psych: Pleasant and co-operative. Objective Data Vital Signs Vital Signs: Vital Signs - 24 hr 11/09/24 17:40 11/09/24 20:00 11/09/24 20:51 Temperature 97.4 F L 98.6 F Pulse Rate 68 71 71 Respiratory Rate 16 18 Blood Pressure 126/72 111/46 L Pulse Oximetry 99 91 Oxygen Delivery 11/09/24 23:33 11/10/24 03:49 11/10/24 08:00 Temperature 97.6 F 98.3 F 97.3 F L Pulse Rate 74 74 69 Respiratory Rate 18 18 22 H Blood Pressure 132/59 L 103/53 L 123/57 L Pulse Oximetry 98 95 98 Oxygen Delivery 11/10/24 08:35 11/10/24 08:38 Temperature Pulse Rate 78 Respiratory Rate Blood Pressure Pulse Oximetry Oxygen Delivery Room Air Intake/Output Intake/Output: Intake & Output 11/07/24 11/08/24 11/09/24 11/10/24 23:59 23:59 23:59 23:59 Intake Total 2250 4370.0 1474.7 Output Total 2 Balance 2248 4370.0 1474.7 Meds/Results Medications: Active Medications Generic Name Dose Route Start Last Admin Trade Name Freq PRN Reason Stop Dose Admin Acetaminophen 500 mg 11/08/24 14:17 Acetaminophen 500 Mg Tablet PO Q6H PRN Pain Rated 1-3 Allopurinol 300 mg 11/08/24 09:00 11/10/24 08:38 Allopurinol 300 Mg Tablet PO 300 mg DAILY MYLES Administration Aspirin 81 mg 11/08/24 21:00 11/09/24 20:48 Aspirin 81 Mg Enteric Tablet PO 81 mg HS MYLES Administration Dextrose 12.5 gm 11/08/24 15:58 Dextrose 50% 25 Gm/50 Ml Syringe IV PUSH PRN PRN Hypoglycemia Protocol Enoxaparin Sodium 40 mg 11/09/24 09:00 11/10/24 08:38 Enoxaparin 40 Mg/0.4 Ml Syringe SUB-Q 40 mg DAILY MYLES Administration Glucagon 1 mg 11/08/24 15:58 Glucagon For Inj 1 Mg Vial IM PRN PRN Hypoglycemia Protocol Glucose 15 gm 11/08/24 15:58 Glucose Oral Gel 15 Gm Of Glucse In 37.5 Gm Tube PO PRN PRN Hypoglycemia Protocol Piperacillin/Tazobactam/Dextrose 3.375 gm in 50 mls @ 100 mls/hr 11/08/24 12:00 11/10/24 11:45 Zosyn 3.375 Gm/Ns 50 Ml IVPB 100 mls/hr Q6H MYLES Administration Ibuprofen 800 mg in 200 mls @ 400 mls/hr 11/08/24 14:17 Caldolor 800 Mg/200 Ml IVPB Q6H PRN Breakthrough Pain Rated 1-3 IF Dextrose 1,000 mls @ 100 mls/hr 11/08/24 15:58 Dextrose 5% 1,000 Ml IVPB PRN PRN Hypoglycemia Protocol Insulin Aspart 2 - 5 units 11/10/24 08:00 11/10/24 12:11 Insulin Aspart (*Bkc) 100 Units/Ml SUB-Q Not Given TIDWM ON LICENSE OF [facility] Protocol Melatonin 3 mg 11/09/24 22:35 11/09/24 22:44 Melatonin 3 Mg Tablet PO 3 mg HS MYLES Administration Metoprolol Succinate 200 mg 11/09/24 09:00 11/10/24 08:38 Metoprolol Succinate Ext Rel 100 Mg Tabcr PO 200 mg QAM MYLES Administration Metoprolol Succinate 100 mg 11/09/24 21:00 11/09/24 20:51 Metoprolol Succinate Ext Rel 100 Mg Tabcr PO 100 mg QHS MYLES Administration Morphine Sulfate 2 mg 11/08/24 14:17 Morphine Sulfate (*Crx) 2 Mg/Ml Inj IV PUSH Q2H PRN Breakthrough Pain Rated 4-6 or NPO Morphine Sulfate 4 mg 11/08/24 14:17 11/08/24 21:44 Morphine Sulfate (*Crx) 4 Mg/Ml Inj IV PUSH 4 mg Q2H PRN Administration Breakthrough Pain Rated 7-10 or NPO Naloxone HCl 0.1 mg 11/08/24 14:17 Naloxone Hcl 0.4 Mg/Ml Vial IV PUSH Q2M PRN Opiate Reversal Ondansetron HCl 4 mg 11/08/24 03:31 11/09/24 22:43 Ondansetron Inj 4 Mg/2 Ml Vial IV PUSH 4 mg Q8H PRN Administration Nausea And Vomiting Oxycodone/Acetaminophen 1 tablet 11/09/24 07:22 Oxycodone/Acetaminophen (*Crx) 5-325 Mg Tablet PO Q4H PRN Pain Rated 4-6 Spironolactone 25 mg 11/08/24 09:00 11/10/24 08:38 Spironolactone 25 Mg Tablet BY MOUTH 25 mg DAILY MYLES Administration Valsartan 160 mg 11/08/24 13:00 11/10/24 08:38 Valsartan 160 Mg Tablet PO 12/08/24 12:59 160 mg DAILY MYLES Administration Radiology Results: ITS Impressions Abdomen/Pelvis CT 11/08/24 06:03 Impression: Acute sigmoid diverticulitis with pericolonic phlegmonous change and small amount of local free air, compatible with perforation. No mature drainable abscess. Labs Labs: Laboratory Results - last 24 hr 11/09/24 11/09/24 11/10/24 17:57 20:56 05:29 WBC 7.9 RBC 3.55 L Hgb 10.8 L Hct 34.6 L MCV 97.5 MCH 30.4 MCHC 31.2 L RDW 14.2 Plt Count 192 MPV 10.3 Immature Gran % (Auto) 0.4 Neut % (Auto) 77.9 H Lymph % (Auto) 11.7 L [place] % (Auto) 7.8 Eos % (Auto) 2.1 Baso % (Auto) 0.1 L Lymph # (Auto) 0.93 [place] # (Auto) 0.6 Eos # (Auto) 0.2 Baso # (Auto) 0.0 Abs Immat Gran (auto) 0.03 Absolute Neuts (auto) 6.2 Absolute Nucleated RBC 0.000 Nucleated RBC % 0.0 Sodium 138 Potassium 4.2 Chloride 106 Carbon Dioxide 26 Anion Gap 6 BUN 20 Creatinine 1.10 Estim Creat Clear Calc 86 Estimated GFR > 60 Glucose 114 H POC Capillary Glucose 110 H 113 H Calcium 8.3 L C-Reactive Protein 13.6 H 11/10/24 11/10/24 07:55 12:07 WBC RBC Hgb Hct MCV MCH MCHC RDW Plt Count MPV Immature Gran % (Auto) Neut % (Auto) Lymph % (Auto) [place] % (Auto) Eos % (Auto) Baso % (Auto) Lymph # (Auto) [place] # (Auto) Eos # (Auto) Baso # (Auto) Abs Immat Gran (auto) Absolute Neuts (auto) Absolute Nucleated RBC Nucleated RBC % Sodium Potassium Chloride Carbon Dioxide Anion Gap BUN Creatinine Estim Creat Clear Calc Estimated GFR Glucose POC Capillary Glucose 119 H 101 Calcium C-Reactive Protein Quality VTE Prophylaxis VTE prophylaxis: mechanical ordered and pharmacologic ordered Hospitalist MIPS Advance Care Plan I have confirmed that the patient's Advanced Care Plan is present, code status is documented, or surrogate decision maker is listed in patient medical record.: Yes Medication Reconciliation I have utilized all available resources to obtain, update and review the patients current medications (includes all prescriptions, OTC, herbals, cannabis, and nutritional supplements).: Yes
--- NOTE | 2024-11-10 13:11 | P.PNIM_ITS ---
Subjective Date/time seen: 11/10/24 10:11 Objective Data Vital Signs Vital Signs: Vital Signs - 24 hr 11/09/24 17:40 11/09/24 20:00 11/09/24 20:51 Temperature 97.4 F L 98.6 F Pulse Rate 68 71 71 Respiratory Rate 16 18 Blood Pressure 126/72 111/46 L Pulse Oximetry 99 91 Oxygen Delivery 11/09/24 23:33 11/10/24 03:49 11/10/24 08:00 Temperature 97.6 F 98.3 F 97.3 F L Pulse Rate 74 74 69 Respiratory Rate 18 18 22 H Blood Pressure 132/59 L 103/53 L 123/57 L Pulse Oximetry 98 95 98 Oxygen Delivery 11/10/24 08:35 11/10/24 08:38 Temperature Pulse Rate 78 Respiratory Rate Blood Pressure Pulse Oximetry Oxygen Delivery Room Air Intake/Output Intake/Output: Intake & Output 11/07/24 11/08/24 11/09/24 11/10/24 23:59 23:59 23:59 23:59 Intake Total 2250 4370.0 1474.7 Output Total 2 Balance 2248 4370.0 1474.7 Meds/Results Medications: Active Medications Generic Name Dose Route Start Last Admin Trade Name Freq PRN Reason Stop Dose Admin Acetaminophen 500 mg 11/08/24 14:17 Acetaminophen 500 Mg Tablet PO Q6H PRN Pain Rated 1-3 Allopurinol 300 mg 11/08/24 09:00 11/10/24 08:38 Allopurinol 300 Mg Tablet PO 300 mg DAILY MYLES Administration Aspirin 81 mg 11/08/24 21:00 11/09/24 20:48 Aspirin 81 Mg Enteric Tablet PO 81 mg HS MYLES Administration Dextrose 12.5 gm 11/08/24 15:58 Dextrose 50% 25 Gm/50 Ml Syringe IV PUSH PRN PRN Hypoglycemia Protocol Enoxaparin Sodium 40 mg 11/09/24 09:00 11/10/24 08:38 Enoxaparin 40 Mg/0.4 Ml Syringe SUB-Q 40 mg DAILY MYLES Administration Glucagon 1 mg 11/08/24 15:58 Glucagon For Inj 1 Mg Vial IM PRN PRN Hypoglycemia Protocol Glucose 15 gm 11/08/24 15:58 Glucose Oral Gel 15 Gm Of Glucse In 37.5 Gm Tube PO PRN PRN Hypoglycemia Protocol Piperacillin/Tazobactam/Dextrose 3.375 gm in 50 mls @ 100 mls/hr 11/08/24 12:00 11/10/24 11:45 Zosyn 3.375 Gm/Ns 50 Ml IVPB 100 mls/hr Q6H MYLES Administration Ibuprofen 800 mg in 200 mls @ 400 mls/hr 11/08/24 14:17 Caldolor 800 Mg/200 Ml IVPB Q6H PRN Breakthrough Pain Rated 1-3 IF Dextrose 1,000 mls @ 100 mls/hr 11/08/24 15:58 Dextrose 5% 1,000 Ml IVPB PRN PRN Hypoglycemia Protocol Insulin Aspart 2 - 5 units 11/10/24 08:00 11/10/24 12:11 Insulin Aspart (*Bkc) 100 Units/Ml SUB-Q Not Given TIDWM [facility] Protocol Melatonin 3 mg 11/09/24 22:35 11/09/24 22:44 Melatonin 3 Mg Tablet PO 3 mg HS MYLES Administration Metoprolol Succinate 200 mg 11/09/24 09:00 11/10/24 08:38 Metoprolol Succinate Ext Rel 100 Mg Tabcr PO 200 mg QAM MYLES Administration Metoprolol Succinate 100 mg 11/09/24 21:00 11/09/24 20:51 Metoprolol Succinate Ext Rel 100 Mg Tabcr PO 100 mg QHS MYLES Administration Morphine Sulfate 2 mg 11/08/24 14:17 Morphine Sulfate (*Crx) 2 Mg/Ml Inj IV PUSH Q2H PRN Breakthrough Pain Rated 4-6 or NPO Morphine Sulfate 4 mg 11/08/24 14:17 11/08/24 21:44 Morphine Sulfate (*Crx) 4 Mg/Ml Inj IV PUSH 4 mg Q2H PRN Administration Breakthrough Pain Rated 7-10 or NPO Naloxone HCl 0.1 mg 11/08/24 14:17 Naloxone Hcl 0.4 Mg/Ml Vial IV PUSH Q2M PRN Opiate Reversal Ondansetron HCl 4 mg 11/08/24 03:31 11/09/24 22:43 Ondansetron Inj 4 Mg/2 Ml Vial IV PUSH 4 mg Q8H PRN Administration Nausea And Vomiting Oxycodone/Acetaminophen 1 tablet 11/09/24 07:22 Oxycodone/Acetaminophen (*Crx) 5-325 Mg Tablet PO Q4H PRN Pain Rated 4-6 Spironolactone 25 mg 11/08/24 09:00 11/10/24 08:38 Spironolactone 25 Mg Tablet BY MOUTH 25 mg DAILY MYLES Administration Valsartan 160 mg 11/08/24 13:00 11/10/24 08:38 Valsartan 160 Mg Tablet PO 12/08/24 12:59 160 mg DAILY MYLES Administration Radiology Results: ITS Impressions Abdomen/Pelvis CT 11/08/24 06:03 Impression: Acute sigmoid diverticulitis with pericolonic phlegmonous change and small amount of local free air, compatible with perforation. No mature drainable abscess. Labs Labs: Laboratory Results - last 24 hr 11/09/24 11/09/24 11/10/24 17:57 20:56 05:29 WBC 7.9 RBC 3.55 L Hgb 10.8 L Hct 34.6 L MCV 97.5 MCH 30.4 MCHC 31.2 L RDW 14.2 Plt Count 192 MPV 10.3 Immature Gran % (Auto) 0.4 Neut % (Auto) 77.9 H Lymph % (Auto) 11.7 L [place] % (Auto) 7.8 Eos % (Auto) 2.1 Baso % (Auto) 0.1 L Lymph # (Auto) 0.93 [place] # (Auto) 0.6 Eos # (Auto) 0.2 Baso # (Auto) 0.0 Abs Immat Gran (auto) 0.03 Absolute Neuts (auto) 6.2 Absolute Nucleated RBC 0.000 Nucleated RBC % 0.0 Sodium 138 Potassium 4.2 Chloride 106 Carbon Dioxide 26 Anion Gap 6 BUN 20 Creatinine 1.10 Estim Creat Clear Calc 86 Estimated GFR > 60 Glucose 114 H POC Capillary Glucose 110 H 113 H Calcium 8.3 L C-Reactive Protein 13.6 H 11/10/24 11/10/24 07:55 12:07 WBC RBC Hgb Hct MCV MCH MCHC RDW Plt Count MPV Immature Gran % (Auto) Neut % (Auto) Lymph % (Auto) [place] % (Auto) Eos % (Auto) Baso % (Auto) Lymph # (Auto) [place] # (Auto) Eos # (Auto) Baso # (Auto) Abs Immat Gran (auto) Absolute Neuts (auto) Absolute Nucleated RBC Nucleated RBC % Sodium Potassium Chloride Carbon Dioxide Anion Gap BUN Creatinine Estim Creat Clear Calc Estimated GFR Glucose POC Capillary Glucose 119 H 101 Calcium C-Reactive Protein
--- OUTSIDE RECORDS SUMMARY | 2024-11-10 15:11 | XMS_ITS | Patient Health Summary ---
Author Organization [facility] Address [address] [place] [address] Care Team Providers Care Telephone Worker Name Role Phone David Gtz MD Primary Care Provider + Lisseth Anne MD Unavailable [phone] Abner Mancia MD Unavailable Donald Frank MD Unavailable [phone] Note from [facility],non-owned Affiliates and Associated Physician Practices is amultiple site organization consisting of ambulatory clinics and hospital sitesin [place], [place], [place] and [place]. This disclosure is being madepursuant to the Care Everywhere program and may not contain all information available regarding this patient. Last updated 18.[facility] Allergies * Adhesive Sensitivity(Other) * Hydrocodone-Acetaminophen(Rash,Unknown) -Medium Criticality Medications * Be aware that medications may not be up to date on this document. Alwaysverify current medications with the patient. * allopurinol (ZYLOPRIM) 300 MG tablet(Started 09/20/2019) * aspirin (ASPIRIN) 81 MG tablet Take 1 (one) tablet by mouth once daily * atorvastatin (LIPITOR) 20 MG tablet(Started 09/20/2019) * glimepiride (AMARYL) 1 MG tablet(Started 08/07/2019) * metoprolol succinate XL 24hr (TOPROL XL) 100 MG tablet(Started 08/07/2019) * minoxidil (LONITEN) 10 MG tablet(Started 11/21/2018) Take 0.5 (one-half) tablet by mouth * pioglitazone (ACTOS) 45 MG tablet(Started 02/18/2018) * spironolactone (ALDACTONE) 25 MG tablet(Started 09/20/2019) * valsartan (DIOVAN) 320 MG tablet(Started 03/28/2019) 0.5 (one-half) tablet * Multiple Vitamins-Minerals (MULTI-VITAMIN/MINERALS) TABS * baclofen (Lioresal) 10 MG tablet(Started 09/16/2023) Take 1 (one) tablet by mouth 3 times daily * clobetasol (Temovate) 0.05 % ointment(Started 09/16/2023) APPLY TOPICALLY TWICE A DAY * furosemide (Lasix) 40 MG tablet(Started 06/19/2023) Take 1 (one) tablet by mouth every morning Active Problems Problem Noted Date Diagnosed Date HTN (hypertension), benign 08/10/2024 Dyspnea 06/01/2023 Social History Tobacco Use Types Packs/Day Years Used Date Smoking Tobacco: Never Smokeless Tobacco: Never Tobacco Cessation:Counseling Given: Not Answered Alcohol Use Standard Drinks/Week Comments Never 0 (1 standard drink = 0.6 oz pur e alcohol) occasionally AUDIT-C Answer Date Recorded Frequency of Alcohol Consumption Never 09/30/2019 Average Number of Drinks Not on file 019 Frequency of Binge Drinking Not on file 09/18 PHQ-2 Answer Date Recorded Patient Health Questionnaire-2 Score 0 06/01/2023 Sex and Gender Information Value Date Recorded Sex Assigned at Not on file Gender Identity Not on file Sexual Orientation Not on file Last Filed Vital Signs Vital Sign Reading Time Taken Comments Blood Pressure 103/61 09/29/2024 1:15 PM [facility] Pulse 80 09/29/2024 1:15 PM [facility] Temperature 36.1 ??C (96.9 ??F) 06/01/2023 1:26 PM CD T Respiratory Rate 26 09/29/2024 1:15 PM [facility] Oxygen Saturation 97% 09/29/2024 1:15 PM [facility] Inhaled Oxygen Concentration - - Weight 146.1 kg (322 lb 3.2 oz) 09/29/2024 9:00 AM [facility] Height 180.3 cm (5' 11 ) 09/29/2024 9:00 AM [facility] Body Mass Index 44.94 09/29/2024 9:00 AM [facility] Procedures * CARDIAC PROCEDURE ORDER(Performed 10/03/2024) * CCL LEFT HEART CATH(Performed 09/29/2024) * CORONARY ANGIOGRAPHY(Performed 09/29/2024) * BASIC METABOLIC PANEL (CALCIUM TOTAL)(Performed 09/13/2024) Performed for Abnormal stress test * CBC W AUTO DIFFERENTIAL(Performed 09/13/2024) Performed for Abnormal stress test * HEMOGLOBIN A1C (EXTERNAL RESULT ENTRY)(Performed 08/31/2024) * NM MYOCARD PERF REST STRESS(Performed 08/25/2024) Performed for Dyspnea, unspecified type * STRESS TEST(Performed 08/25/2024) Performed for Dyspnea, unspecified type * LAB RESULTS ORDER(Performed 08/22/2024) * ECHO COMPLETE(Performed 08/06/2023) Performed for Dyspnea, unspecified type * EKG 12-LEAD(Performed 06/01/2023) Performed for Dyspnea, unspecified type * ECHOCARDIOGRAM STRESS(Performed 10/14/2019) Performed for SOB (shortness of breath) * STRESS TEST TREADMILL (NO IMAGING)(Performed 10/14/2019) Performed for SOB (shortness of breath) * ECHOCARDIOGRAM STRESS(Performed 10/14/2019) Performed for SOB (shortness of breath) * EKG 12-LEAD(Performed 09/30/2019) Performed for SOB (shortness of breath) * LAB RESULTS ORDER(Performed 02/05/2019) * LAB HISTORICAL RESULTS-ONBASE(Performed 02/22/2008) * LAB HISTORICAL RESULTS-ONBASE(Performed 01/14/2008) * LAB HISTORICAL RESULTS-ONBASE(Performed 10/26/2007) * LAB HISTORICAL RESULTS-ONBASE(Performed 10/22/2007) * LAB HISTORICAL RESULTS-ONBASE(Performed 09/25/2007) * LAB HISTORICAL RESULTS-ONBASE(Performed 09/13/2007) * LAB HISTORICAL RESULTS-ONBASE(Performed 08/21/2007) * LAB HISTORICAL RESULTS-ONBASE(Performed 08/13/2007) * LAB HISTORICAL RESULTS-ONBASE(Performed 08/07/2007) * LAB HISTORICAL RESULTS-ONBASE(Performed 07/31/2007) * LAB HISTORICAL RESULTS-ONBASE(Performed 07/23/2007) * LAB HISTORICAL RESULTS-ONBASE(Performed 07/02/2007) Results * CARDIAC PROCEDURE ORDER (10/03/2024 6:58 PM [facility]) Narrative 10/03/2024 6:58 PM [facility] Ordered by an unspecified provider. Scanned Document CARDIAC SERVICES ORD ERABLES * CORONARY ANGIOGRAPHY, CCL LEFT HEART CATH (09/29/2024 11:08 AM [facility]) Anatomical Region Laterality Modality X-Ray Angiograph y Narrative 09/29/2024 11:25 AM [facility] Left main - short, no significant disease LAD - mild disease, wraps apex Lcx - mild ostial disease RCA - mild disease, dominant with RPDA LVEDP 16 mmHg Procedure Details Estimated Blood Loss: 20 mL Coronary Findings Diagnostic Dominance: Right Left Anterior Descending: There is mild diffuse disease throughout the vessel. Left Circumflex: There is mild diffuse disease throughout the vessel. Right Coronary Artery: There is mild diffuse disease throughout the vessel. Intervention No interventions have been documented. Marco Antonio Gunn MD CV CARDIAC CATH CUPI D PROCS * CBC WITH DIFFERENTIAL (09/13/2024 11:03 AM [facility]) WBC 6.7 3.4 - 10.8 x10E3/uL [facility] INSURANCE BILL Comment: Effective September 19, 2024 profile [id number] WBC will be made ??non-orderable as a stand-alone order code. RBC 4.20 4.14 - 5.80 x10E6/uL [facility] INSURANCE BILL Hemoglobin 13.0 13.0 - 17.7 g/dL [facility] INSURANCE BILL Hematocrit 40.2 37.5 - 51.0 % [facility] INSURANCE BILL MCV 96 79 - 97 fL [facility] INSURANCE BILL MCH 31.0 26.6 - 33.0 pg [facility] INSURANCE BILL MCHC 32.3 31.5 - 35.7 g/dL [facility] INSURANCE BILL RDW 13.0 11.6 - 15.4 % [facility] INSURANCE BILL Platelet Count 241 150 - 450 x10E3/uL [facility] INSURANCE BILL Granulocytes % 71 Not Estab. % [facility] INSURANCE BILL Lymphocytes % 17 Not Estab. % [facility] INSURANCE BILL Monocytes % 9 Not Estab. % [facility] INSURANCE BILL Eosinophils % 3 Not Estab. % [facility] INSURANCE BILL Basophils % 0 Not Estab. % [facility] INSURANCE BILL Granulocytes Absolute 4.7 1.4 - 7.0 x10E3/uL [facility] INSURANCE BILL Lymphocytes Absolute 1.2 0.7 - 3.1 x10E3/uL [facility] INSURANCE BILL Monocytes Absolute 0.6 0.1 - 0.9 x10E3/uL [facility] INSURANCE BILL Eosinophils Absolute 0.2 0.0 - 0.4 x10E3/uL [facility] INSURANCE BILL Basophils Absolute 0.0 0.0 - 0.2 x10E3/uL [facility] INSURANCE BILL Immature Granulocytes 0 Not Estab. % [facility] INSURANCE BILL Immature Granulocytes Absolute 0.0 0.0 - 0.1 x10E3/uL [facility] INSURANCE BILL Blood BLOOD SPECIMEN / Unknown 09/13/2024 11:03 AM [facility] 09/13/2024 Narrative [facility] INSURANCE BILL - 09/14/2024 7:13 AM [facility]AS Performed at: ??[address] - [address] ??[id number] Sales And Marketing Intern: Omi Monique PhD, Phone: ??[phone] Marco Antonio Gunn MD LAB - HEMATOLOGY ORD ERABLES [facility] INSURANCE BILL [address] [place] [address] * (ABNORMAL) BASIC METABOLIC PANEL (BMP) (09/13/2024 11:03 AM [facility]) Glucose 134(H) 70 - 99 mg/dL [facility] INSURANCE BILL BUN 26 8 - 27 mg/dL [facility] INSURANCE BILL Creatinine 1.19 0.76 - 1.27 mg/dL [facility] INSURANCE BILL eGFR by CKD-EPI 68 >59 mL/min/1.7 3 [facility] INSURANCE BILL BUN/Creatinine Ratio 22 10 - 24 [facility] INSURANCE BILL Sodium 141 134 - 144 mmol/L [facility] INSURANCE BILL Potassium 4.7 3.5 - 5.2 mmol/L [facility] INSURANCE BILL Chloride 105 96 - 106 mmol/L [facility] INSURANCE BILL CO2 24 20 - 29 mmol/L [facility] INSURANCE BILL Calcium 9.3 8.6 - 10.2 mg/dL [facility] INSURANCE BILL Blood BLOOD SPECIMEN / Unknown 09/13/2024 11:03 AM [facility] 09/13/2024 Narrative [facility] INSURANCE BILL - 09/14/2024 7:13 AM [facility] Performed at: ??01 - [facility] [address], [place], [place] ??[id number] Sales And Marketing Intern: Omi Monique PhD, Phone: ??[phone] Marco Antonio Gunn MD LAB - CHEMISTRY JUSTINE LAWSON [facility] INSURANCE BILL [address] [place] [address] * (ABNORMAL) HEMOGLOBIN A1C (EXTERNAL RESULT ENTRY) (08/31/2024) Hemoglobin A1c (EXTERNAL RESULT) 6.8(H) % OUTSIDE REFERENCE LAB Comment:[facility] up - no lab indicated (scanned) Blood BLOOD SPECIMEN / Unknown 08/31/2024 Historical Provider LAB - CHEMISTRY O VALERIO Performing Organization Address City/[facility]/ZIP Co de Phone Number OUTSIDE REFERENCE LAB * NM MYOCARD PERF REST STRESS (08/25/2024 11:16 AM [facility]) Anatomical Region Laterality Modality Chest Nuclear Digisoni cs 08/25/2024 9:20 AM [facility] Narrative Procedure Note Rashaun Chan MD - 08/25/2024 [address] [place] [address] [facility] centerL[facility]/heart Nuclear Myocardial Perfusion Scan Report Pat.Name: MARBIN DE LA CRUZ Pat.ID: [id number] St.Date: 08/25/2024 Refer.MD: Jeannine Gtz Exam Time: 9:20:00 AM Study Type:Nuclear Myocardial Perfusion Scan Weight: 326lb Age: 10 1960,64Y Sex: MALE Sonogrphr: DWAINE Martínez Reason for Study: Dyspnea, Chest pressure Procedures: Lexiscan Perfusion Scan, Gated Stress Visit ID: [id number] Risk Factors:Hypertension, Diabetes, Hypercholesterolemia Clinical Symptoms:Dyspnea, Chest pressure Medications:Aspirin, Diabetic medications, Diovan, Lasix, Lipitor, Toprol, Aldactone ++++++++++++++++++++++++++++++++++++ SUMMARY: ++++++++++++++++++++++++++++++++++++ FINDINGS: Myocardial perfusion imaging reveals a moderate to large sized area of moderately decreased activity in the lateral wall which is reversible between both imaging sets and is consistent with ischemia. The remaining castillo demonstrate normal perfusion. LV cavity size appears normal in both imaging sets. Gated SPECT myocardial imaging reveals normal LV systolic function with a calculated ejection fraction of 66%. SUMMARY: 1. Abnormal myocardial perfusion study with a moderate to large area of moderate ischemia in the lateral wall. 2. Gated SPECT images reveal normal LV systolic function. ++++++++++++++++++++++++++++++++++++ STRESS: ++++++++++++++++++++++++++++++++++++ Baseline Vital Signs: Intervention Lexiscan Peak Dose 0.4 mg Atropine 0 Stress Test Results: Target HR 132 Symptoms and Complications: Signed 08/25/2024 12:32 PM Rashaun Chan MD Lisseth Anne MD NM ORDERABLES * STRESS TEST Pharm-Lexiscan (Regadenoson) (08/25/2024 9:35 AM [facility]) Anatomical Region Laterality Modality Cardiac Electrop hysiology 08/25/2024 8:30 AM [facility] Narrative 08/25/2024 11:45 AM [facility]AS Patient Info Name: ? Marbin De La Cruz Age: ? 64 years : ? 1960 Gender: ? Male Accession #: ? [id number] Ht: ? 71 in Wt: ? 326 lb BSA: ? 2.79 m2 HR: ? 75 bpm BP: ? 146 / ? 75 mmHg Heart Rhythm: ? Sinus Rhythm, ST ??T wave abnormality, consider anterolateral ischemia Exam Date: ? 08/25/2024 8:30 AM Patient Status: ? O/P Study Site: ? [facility] Primary Location: ? [facility] EStudy Info Exam Type: ? STRESS TEST Indications ?R06.00 - Dyspnea, ??unspecified type Procedure(s) ??* Pharmacological stress test was performed. Staff Referring Physician: ? Lisseth Anne Ordering Provider: ? Lisseth Anne Attending Physician: ? Lisseth Anne Nurse: ? Ernst Price Exercise Physician: ? Rashaun Chan Stress Staff: ? Ernst Mcintrye Summary ??* Indication for the stress test, dyspnea. ??* Stress ECG is negative for ischemia. ??* Normal blood pressure response. ??* No chest discomfort with stress test. ??* Normal ST segment response to stress. ??* No ischemic EKG changes during Lexiscan stress. Protocol: ? Regadenoson Stress ECG Details Stage: ? Rest Duration (min): ? --- HR (bpm): ? 75 SBP (mmHg): ? 146 DBP (mmHg): ? 75 Symptoms: ? None Stage: ? 1 Duration (min): ? 3 min : 0 sec Dose: ? 0.4 mg Medication(s): ? Regadenoson HR (bpm): ? 96 SBP (mmHg): ? 139 DBP (mmHg): ? 74 Symptoms: ? None Stage: ? Recovery Duration (min): ? 2 min : 0 sec HR (bpm): ? 90 SBP (mmHg): ? 154 DBP (mmHg): ? 70 Symptoms: ? None Target HR Summary: ? Hemodynamic response to exercise was normal BP Response: ? Normal blood pressure response Cardiac Symptoms: ? None Resting ECG ??Normal sinus rhythm at rest. ST ??T wav. ST ??T wave abnormality, consider anterolateral ischemia. Stress ECG ??Heart rate demonstrated a normal response to stress. The patient's peak stress blood pressure was 154/70 mmHg. A peak heart rate of 96 bpm was achieved. Stress ECG is negative for ischemia. No abnormal ST/T wave changes with stress. Termination Reason: ? Protocol completed Heart Rate Response : Resting HR (bpm): 75 : Peak HR (bpm): 96 : Max Predicted HR (bpm): 155 : % of Max Predicted HR: 62 % : Target HR (bpm): 132 Blood Pressure Response : Rest Sys. BP (mmHg): 146 : Rest Diast. BP (mmHg): 75 : Peak Sys. BP (mmHg): 154 : Peak Maynard. BP (mmHg): 70 : Max Rate Pressure Product (bpm*mmHg): 14,784 Medication Regadenoson Dose: 0.4 mg Report Signatures Finalized by Rashaun Chan on 08/25/2024 11:45 AM Procedure Note Rashaun Chan MD - 08/25/2024 Patient Info Name: Marbin De La Cruz Age: 64 years : 1960 Gender: Male Ht: 71 in Wt: 326 lb BSA: 2.79 m2 HR: 75 bpm BP: 146 / 75 mmHg Heart Rhythm: Sinus Rhythm, ST T wave abnormality, consideranterolateral ischemia Exam Date: 08/25/2024 8:30 AM Patient Status: O/P Study Site: [facility] E[facility] Info Exam Type: STRESS TEST Indications R06.00 - Dyspnea, unspecified type Procedure(s) * Pharmacological stress test was performed. Staff Referring Physician: Lisseth Anen Ordering Provider: Lisseth Anne Attending Physician: Lisseth Anne Nurse: Ernst Price Exercise Physician: Rashaun Chan Stress Staff: Ernst Mcintyre Summary * Indication for the stress test, dyspnea. * Stress ECG is negative for ischemia. * Normal blood pressure response. * No chest discomfort with stress test. * Normal ST segment response to stress. * No ischemic EKG changes during Lexiscan stress. Protocol: Regadenoson Stress ECG Details Stage: Rest Duration (min): --- HR (bpm): 75 SBP (mmHg): 146 DBP (mmHg): 75 Symptoms: None Stage: 1 Duration (min): 3 min : 0 sec Dose: 0.4 mg Medication(s): Regadenoson HR (bpm): 96 SBP (mmHg): 139 DBP (mmHg): 74 Symptoms: None Stage: Recovery Duration (min): 2 min : 0 sec HR (bpm): 90 SBP (mmHg): 154 DBP (mmHg): 70 Symptoms: None Target HR Summary: Hemodynamic response to exercise was normal BP Response: Normal blood pressure response Cardiac Symptoms: None Resting ECG Normal sinus rhythm at rest. ST T wav. ST T wave abnormality, consider anterolateral ischemia. Stress ECG Heart rate demonstrated a normal response to stress. The patient'speak stress blood pressure was 154/70 mmHg. A peak heart rate of 96 bpm was achieved. Stress ECG is negative for ischemia. No abnormal ST/T wavechanges with stress. Termination Reason: Protocol completed Heart Rate Response : Resting HR (bpm): 75 : Peak HR (bpm): 96 : Max Predicted HR (bpm): 155 : % of Max Predicted HR: 62 % : Target HR (bpm): 132 Blood Pressure Response : Rest Sys. BP (mmHg): 146 : Rest Diast. BP (mmHg): 75 : Peak Sys. BP (mmHg): 154 : Peak Maynard. BP (mmHg): 70 : Max Rate Pressure Product (bpm*mmHg): 14,784 Medication Regadenoson Dose: 0.4 mg Report Signatures Finalized by Rashaun Chan on 08/25/2024 11:45 AM Lisseth Anne MD CARDIAC SERVICES CUP ID * LAB RESULTS ORDER (08/22/2024) Only the most recent of2 resultswithin the time period is included. 08/22/2024 Narrative 08/22/2024 Ordered by an unspecified provider. Scanned Document LAB - THERAPEUTIC DR PENDLETON MONITORING ORDERABLES * ECHO COMPLETE (08/06/2023 2:35 PM CDT) BSA 2.8895409 m2 [facility] CV FUJ I PACS LVOT stroke vol 87.16 mL SSM CV FUJI PACS LVOT stroke vol index 31.62 mL/m2 [facility] CV FUJI PACS LVOT diam 2.0 cm [facility]SM CV FUJ I PACS LVOT area 3.18 cm2 [facility] CV FUJ I PACS MV E pk jomar 97.349 cm/s SSM CV F UJI PACS MV avg E/e' ratio 11.589 SS M CV FUJI PACS MV A pk jomar 68.901 cm/s SSM CV F UJI PACS MV E A ratio 1.41 SSM CV FUJI PACS MV E' lateral jomar 7.969 cm/s SS M CV FUJI PACS MV DT 183 ms SSM CV FUJ I PACS MV E' septal jomar 8.88 cm/s SSM CV FUJI PACS MV E/e' septal 10.962 SSM C V FUJI PACS MV E/e' lateral 12.215 SSM CV FUJI PACS LA vol BP 86.325 mL SSM CV FUJ I PACS LVOT pk jomar 1.23 m/s SSM CV F UJI PACS LVOT mn jomar 0.73 m/s SSM CV F UJI PACS LVOT mn grad 2.7 mmHg SSM CV FUJI PACS LVOT Cardiac Output 5.923 l/min SSM CV FUJI PACS LVOT Cardiac Index 2.15 l/min/m2 S[facility] CV FUJI PACS LA vol index 31.3 16 - 34 mL/m2 SSM CV FUJI PACS LA vol BP A-L 92.935 mL SSM CV FUJI PACS TV S' jomar 11.963 SSM CV FUJ I PACS TAPSE 2.328 1.7 cm SSM CV FUJ I PACS AV mn grad 5 mmHg SSM CV FU JI PACS AV pk grad 10 mmHg SSM CV FU JI PACS AV mn jomar 1.03 m/s SSM CV FUJ I PACS AV pk jomar 1.55 m/s SSM CV FUJ I PACS AV VTI 40.493 cm SSM CV FUJ I PACS LVOT pk grad 6.006 mmHg SSM CV FUJI PACS LVOT VTI 27.413 cm SSM CV FUJ I PACS AV area cont VTI 2.2 cm2 SSM CV FUJI PACS AV area pk jomar 2.5 cm2 SSM C V FUJI PACS AV Doppler jomar index pk jomar 0.789 SSM CV FUJI PACS Dimensionless Index 0.677 SSM CV FUJI PACS MV decel slope 531.549 cm/s2 SSM C V FUJI PACS LA ESV INDEX (BP) 31.31 ml/m2 SS M CV FUJI PACS LA ESV A4C MOD Index 28 ml/m2 SSM CV FUJI PACS LA ESV A2C MOD Index 35 ml/m2 SSM CV FUJI PACS RAP 3.0 mmHg SSM CV FUJ I PACS Anatomical Region Laterality Modality Ultrasound Narrative 08/06/2023 4:42 PM CDT ?Left??Ventricle: Left ventricle size is normal. Mildly increased wall thickness. Probably normal systolic function--at least 55%. ??Contrast not used. Unable to assess wall motion. ??No gross wall motion abnormalities noted but contrast not used. Normal diastolic function. ?Right??Ventricle: Right ventricle size is normal. Normal systolic function. ?Tricuspid??Valve: No regurgitation. Unable to estimate the pulmonary artery systolic pressure due to lack of tricuspid regurgitation. RAP is 3.0 mmHg. Left Ventricle Left ventricle size is normal. Mildly increased wall thickness. Probably normal systolic function--at least 55%. Contrast not used. Unable to assess wall motion. No gross wall motion abnormalities noted but contrast not used. Normal diastolic function. Right Ventricle Right ventricle size is normal. Normal systolic function. Left Atrium Left atrium is mildly dilated. Left atrium volume index is 33 mL/m2. Right Atrium Right atrium size is normal. IVC/SVC IVC diameter is less than or equal to 21 mm and decreases greater than 50% during inspiration; therefore the estimated right atrial pressure is normal (~3 mmHg). Mitral Valve Valve structure is normal. No restricted motion. Trace regurgitation. No stenosis. Tricuspid Valve Valve structure is normal. No restricted motion. No regurgitation. Unable to estimate the pulmonary artery systolic pressure due to lack of tricuspid regurgitation. RAP is 3.0 mmHg. No stenosis. Aortic Valve Valve structure is trileaflet. No restricted motion. No regurgitation. No stenosis. Pulmonic Valve Not well visualized. Ascending Aorta Not well visualized. Pericardium No pericardial effusion. Study Details Study quality was good. A complete 2D, color Doppler, spectral Doppler and M- mode echocardiogram was performed. The apical, parasternal and subcostal views were obtained. Technical difficulties due to patient's body habitus, inability to obtain IV access and poor acoustic windows. Procedure Note Christina Dorantes, DO - 08/06/2023 ? ? Left??Ventricle: Left ventricle size is normal. Mildly increased wallthickness. Probably normal systolic function--at least 55%. Contrast notused. Unable to assess wall motion. No gross wall motion abnormalitiesnoted but contrast not used. Normal diastolic function. ? ? Right??Ventricle: Right ventricle size is normal. Normal systolicfunction. ? ? Tricuspid??Valve: No regurgitation. Unable to estimate the pulmonaryartery systolic pressure due to lack of tricuspid regurgitation. RAP is3.0 mmHg. Lisseth Anne MD ECHO CUPID * EKG 12-LEAD (06/01/2023 12:58 PM CDT) Only the most recent of2 resultswithin the time period is included. Ventricular Rate 61 BPM [facility] Atrial Rate 61 BPM [facility] P-R Interval 170 ms [facility] QRS Duration ms 92 ms [facility] Q-T Interval ms 392 ms [facility] QTC Calculation (Bezet) 394 ms [facility] Calculated P Starr 22 degrees [facility] Calculated R Starr 46 degrees [facility] Calculated T Starr 64 degrees [facility] Interpretation EKG NORMAL SINUS RHYTHM NORMAL ECG Confirmed by MD Dayana, Lisseth ([id number]) on 06/03/2023 7:24:15 AM [facility] MUSE 06/01/2023 12:5 8 PM CDT 06/03/2023 7:24 AM CDT Lisseth Anne MD ECG ORDERABLES [facility] MUSE * ECHOCARDIOGRAM STRESS Walking Stress ECHO (10/14/2019 9:32 AM [facility]AS) 10/14/2019 9:32 AM [facility] Narrative [facility] CARDIOLOGY - 10/15/2019 12:54 PM [facility] [address] [address] Exercise Stress Echocardiography Name: MARBIN DE LA CRUZ MR #: [id number] Study date: 14-Oct-2019 : 1960 Age: 59 years Gender: Male Height: 71 in Weight: 327 lb BSA: 2.6 m?? Allergies: HYDROCODONE-ACETAMINOPHEN Sales Audit Clerk: ??Dank Nelson RDCS Referring Physician: ??Lisseth Anne MD Reading Physician: ??Nikki Choudhary MD Performing Nurse Practitioner: ??KATHIA Wall- Nurse: ??Velma Otoole RN CLINICAL QUESTION: Shortness of breath, pre- op for surgery Detection of coronary artery disease. HISTORY: The patient is a 59 year old male. Chest pain status: no chest pain. PHYSICAL EXAM: Baseline physical exam screening: normal, normal cardiac exam, and normal lung exam. REST ECG: Normal sinus rhythm. The ECG showed no atrial ectopy, no ventricular ectopy, normal conduction, and normal QRS morphology. PROCEDURE: The procedure was explained to the patient and informed consent was obtained. Treadmill exercise testing was performed, using the Venu protocol. Stress and rest echocardiographic evaluation with 2D imaging, spectral Doppler, color Doppler, and Definity intravenous contrast was performed from multiple acoustic windows for evaluation of ventricular function. Systolic blood pressure was 128 mmHg, at the start of the study. Diastolic blood pressure was 65 mmHg, at the start of the study. The heart rate was 69 bpm, at the start of the study. VENU PROTOCOL: HR bpm SBP mmHg DBP mmHg Symptoms Baseline 69 128 65 none Stage 1 118 132 60 -- Stage 2 134 -- -- -- Recovery 1 73 168 65 -- No medications or fluids given. STRESS SUMMARY: Duration of exercise was 4 min and 23 sec. The patient exercised to protocol stage 2. Maximal work rate was 6.2 METs. Functional capacity was decreased (greater than 40%) since average for age was 8 mins and 50 secs. Maximal heart rate during stress was 134 bpm ( 84 % of maximal predicted heart rate). Target heart rate was not achieved. The heart rate response to stress was normal. Maximal systolic blood pressure during stress was 168 mmHg. There was normal resting blood pressure with a hypertensive response to stress. The rate-pressure product for the peak heart rate and blood pressure [place] [address]. There was no chest pain during stress. The stress test was terminated due to dyspnea. The stress ECG was negative for ischemia. There were no stress arrhythmias or conduction abnormalities. Maximal ST change occurred during the exercise phase. ST depression horizontal in the imnferolateral leads which does not meet criteria for ischemia. reveiwed by Dr Choudhary STRESS 2D ECHOCARDIOGRAPHIC RESULTS: BASELINE: There were no regional wall motion abnormalities. Left ventricular size was normal. Overall left ventricular systolic function was normal. PEAK STRESS: There was an appropriate reduction in left ventricular size. There was an appropriate augmentation in LV function. ECHO IMPRESSIONS: Echo images showed no stress-induced wall motion abnormalities per Dr Choudhary. SUMMARY: - ??Stress results: Duration of exercise was 4 min and 23 sec. Maximal work rate was 6.2 METs. Functional capacity was decreased (greater than 40%) since average for age was 8 mins and 50 secs. Target heart rate was not achieved. There was normal resting blood pressure with a hypertensive response to stress. There was no chest pain during stress. - ??ECG conclusions: The stress ECG was negative for ischemia. - ??Baseline: There were no regional wall motion abnormalities. IMPRESSIONS: Normal study. Diagnostic sensitivity was limited by submaximal stress. SYSTEM MEASUREMENT TABLES 2D LAAs A4C: 22.2 cm2 LAESV A-L A4C: 71.2 ml LAESV MOD A4C: 65.7 ml Prepared and signed by Nikki Choudhary MD Signed 15-Oct-2019 12:54:38 Procedure Note Nikki Choudhary MD - 10/15/[address] [address] Exercise Stress Echocardiography Name: MARBIN DE LA CRUZ MR #: [id number] Study date: 14-Oct-2019 : 1960 Age: 59 years Gender: Male Height: 71 in Weight: 327 lb BSA: 2.6 m?? Allergies: HYDROCODONE-ACETAMINOPHEN Sales Audit Clerk: Dank Nelson [facility] Referring Physician: Lisseth Anne MD Reading Physician: Nikki Choudhary MD Performing Nurse Practitioner: KATHIA Wall- Nurse: Vlema Otoole RN CLINICAL QUESTION: Shortness of breath, pre- op for surgery Detection of coronary artery disease. HISTORY: The patient is a 59 year old male. Chest pain status: no chest pain. PHYSICAL EXAM: Baseline physical exam screening: normal, normal cardiac exam, and normal lung exam. REST ECG: Normal sinus rhythm. The ECG showed no atrial ectopy, no ventricular ectopy, normal conduction, and normal QRS morphology. PROCEDURE: The procedure was explained to the patient and informed consent was obtained. Treadmill exercise testing was performed, using the Venu protocol. Stress and rest echocardiographic evaluation with 2D imaging, spectral Doppler, color Doppler, and Definity intravenous contrast was performed from multiple acoustic windows for evaluation of ventricular function. Systolic blood pressure was 128 mmHg, at the start of the study. Diastolic blood pressure was 65 mmHg, at the start of the study. The heart rate was 69 bpm, at the start of the study. VENU PROTOCOL: HR bpm SBP mmHg DBP mmHg Symptoms Baseline 69 128 65 none Stage 1 118 132 60 -- Stage 2 134 -- -- -- Recovery 1 73 168 65 -- No medications or fluids given. STRESS SUMMARY: Duration of exercise was 4 min and 23 sec. The patient exercised to protocol stage 2. Maximal work rate was 6.2 METs. Functional capacity was decreased (greater than 40%) since average for age was 8 mins and 50 secs. Maximal heart rate during stress was 134 bpm ( 84 % of maximal predicted heart rate). Target heart rate was not achieved. The heart rate response to stress was normal. Maximal systolic blood pressure during stress was 168 mmHg. There was normal resting blood pressure with a hypertensive response to stress. The rate-pressure product for the peak heart rate and blood pressure was [address]. There was no chest pain during stress. The stress test was terminated due to dyspnea. The stress ECG was negative for ischemia. There were no stress arrhythmias or conduction abnormalities. Maximal ST change occurred during the exercise phase. ST depression horizontal in the imnferolateral leads which does not meet criteria for ischemia. reveiwed by Dr Choudhary STRESS 2D ECHOCARDIOGRAPHIC RESULTS: BASELINE: There were no regional wall motion abnormalities. Left ventricular size was normal. Overall left ventricular systolic function was normal. PEAK STRESS: There was an appropriate reduction in left ventricular size. There was an appropriate augmentation in LV function. ECHO IMPRESSIONS: Echo images showed no stress-induced wall motion abnormalities per Dr Choudhary. SUMMARY: - Stress results: Duration of exercise was 4 min and 23 sec. Maximal work rate was 6.2 METs. Functional capacity was decreased (greater than 40%) since average for age was 8 mins and 50 secs. Target heart rate was not achieved. There was normal resting blood pressure with a hypertensive response to stress. There was no chest pain during stress. - ECG conclusions: The stress ECG was negative for ischemia. - Baseline: There were no regional wall motion abnormalities. IMPRESSIONS: Normal study. Diagnostic sensitivity was limited by submaximal stress. SYSTEM MEASUREMENT TABLES 2D LAAs A4C: 22.2 cm2 LAESV A-L A4C: 71.2 ml LAESV MOD A4C: 65.7 ml Prepared and signed by Nikki Choudhary MD Signed 15-Oct-2019 12:54:38 Lisseth Anne MD ECHO ORDERABLES [facility] [address] [place] [address] * ECG STRESS TRACING (10/14/2019 9:27 AM CPAS) Pathologist [facility] Stress Test Summary For full formatted report, please see the report link in the order. Acquisition Time: 2019-10-14 ??09:27:08 Total Exercise Time: 00:04:23 Test Indications: Medications: Protocol: VENU ? Max HR: 134 BPM ??83% of ??Pred: 160 BPM Max BP: 195/089 mmHG Max Work Load: 6.2 METS Reason for Termination: Dyspnea, requested to stop Resting ECG: Normal Functional Capacity: decreased HR Response to Exercise: appropriate BP Resoonse to Exercise: normal resting BP - appropriate response Chest Pain: NONE Arrhythmias: none ST Changes: NONE Overall Impression: Normal stress test but submaximal Diagnosis: Decreased functional exercise capacity since average for age was 8 mins and 50 secs. Initial Hr was 67 bpm and peaked to 134 bpm which was 83% of the predicted max HR for age. BP increased appropriately with exercise. No exercise-induced ??chest pain. Slight ST depression horizontal pattern in the inferolateral leads which is suggestive for ischemia. Echo images showed no stress-induced all motion abnormalites per Dr Choudhary however diagnostic sensitivity was decreaed by submaximal stress. Confirmed by Nikki Choudhary ([id number]) on 10/16/2019 7:25:17 PM Also confirmed by Nikki Choudhary ([id number]), general expeditor Velma Otoole ([id number]) on 10/31/2019 4:05:38 PM Attending Physician: Referred By: LISSETH ANNE ? Overread By: Nikki Choudhary [facility] STRESS 10/14/2019 9:27 AM CPAS 10/31/2019 4:05 PM CPAS Lisseth Anne MD CARDIAC SERVICES ORD ERABLES Performing Organization Address City/[facility]/ZIP Co de Phone Number [facility] STRESS * LAB HISTORICAL RESULTS-ONBASE (02/22/2008) Only the most recent of12 resultswithin the time period is included. 02/22/2008 Historical Provider LAB - CHEMISTRY O [facility] [address] [place] [address], [facility] Care Teams Telephone Worker Relationship Specialty Start Date End Date David Gtz MD [address] [facility] [address] [place] [address] PCP - General 08/01/08 Lisseth Anne MD [address] [facility] [address] [place] [address] Cardiology 09/30/19 Abner Mancia MD [address] [facility] [address] [place] [address] Urology 09/30/19 Donald Frank MD [address] [place] [address] Referring Physician Plastic and Reconstructive Surgery 09/30/19
--- OUTSIDE RECORDS SUMMARY | 2024-11-10 15:11 | XMS_ITS | Clinical Summary ---
Author Organization [facility] Address [address] [facility] [place] [address] Care Team Providers Care At Risk Paraprofessional Name Role Phone David Gtz MD Primary Care Provider + Bry Anne MD Unavailable Abner Mancia MD Unavailable Donald Frank MD Unavailable [phone] Source Comments [facility],non-owned Affiliates and Associated Physician Practices is amultiple site organization consisting of ambulatory clinics and hospital sitesin [place], [place], [place] and [place]. This disclosure is being madepursuant to the Care Everywhere program and may not contain all information available regarding this patient. Last updated 18.[facility] Allergies Active Allergy Reactions Criticality Noted Date Comments Adhesive Sensitivity Other 10/14/2019 Skin damage Hydrocodone-Acetaminophen Rash,Unknown Medium 07/11/20 16 Medications * Be aware that medications may not be up to date on this document. Alwaysverify current medications with the patient. Medication Sig Dispensed Refills Start Date End Date Status allopurinol (ZYLOPRIM) 300 MG tablet 09/20/2019 Active aspirin (ASPIRIN) 81 MG tablet Take 1 (one) tablet by mouth once daily Active atorvastatin (LIPITOR) 20 MG tablet 09/20/2019 Active glimepiride (AMARYL) 1 MG tablet 08/07/2019 Active metoprolol succinate XL 24hr (TOPROL XL) 100 MG tablet 08/07/2019 Active minoxidil (LONITEN) 10 MG tablet Take 0.5 (one-half) tablet by mouth 11/21/2018 Active pioglitazone (ACTOS) 45 MG tablet 02/18/2018 Active spironolactone (ALDACTONE) 25 MG tablet 09/20/2019 Active valsartan (DIOVAN) 320 MG tablet 0.5 (one-half) tablet 03/28/2019 Active Multiple Vitamins-Minerals (MULTI-VITAMIN/MINERA LS) TABS Active baclofen (Lioresal) 10 MG tablet Take 1 (one) tablet by mouth 3 times daily 09/16/2023 Active clobetasol (Temovate) 0.05 % ointment APPLY TOPICALLY TWICE A DAY 09/16/2023 Active furosemide (Lasix) 40 MG tablet Take 1 (one) tablet by mouth every morning 06/19/2023 Active Active Problems Problem Noted Date Diagnosed Date HTN (hypertension), benign 08/10/2024 Dyspnea 06/01/2023 Encounters Date Type Department Care Team Description 09/29/2024 10:00 AM DISTANCE LEARNING COORDINATOR - 09/29/2024 11:30 AM DISTANCE LEARNING COORDINATOR Surgery [facility] - Cardiac Car [place] [address] [place] [id number] Marco Antonio Gunn MD Coronary Angiography 09/29/2024 8:38 AM DISTANCE LEARNING COORDINATOR - 09/29/2024 1:37 PM DISTANCE LEARNING COORDINATOR Hospital Encounter [facility] - Cardiac Car Porter [address] [place] [address] Marco Antonio Gunn MD Cardiac Catheterization Discharge Disposition: Home or Self Care 09/29/2024 Travel 09/26/2024 Telephone [facility] Heart & Vascular [facility] [address] [place] [address] [address] [place] [address] Bry Anne MD Preop Question 08/31/2024 Telephone [facility] & V[facility] Care [address] [place] [address] [address] [place] [address] Marco Antonio Gunn MD Surgery Scheduling 08/25/2024 7:59 AM DISTANCE LEARNING COORDINATOR - 08/25/2024 11:59 PM DISTANCE LEARNING COORDINATOR Hospital Encounter [facility] [address] [place] [address], [address] [place] [address] Bry Anne MD Discharge Disposition: Home or Self Care 08/25/2024 7:58 AM DISTANCE LEARNING COORDINATOR Hospital Encounter [facility] [address] [place] [address], [address] [place] [address] Bry Anne MD Cardiovascular Disease Discharge Disposition: Home or Self Care 08/10/2024 2:00 PM CDT Office Visit [facility] [address] [place] [address] [address] [place] [address] Bry Anne MD Dyspnea, unspecified type (Primary Dx) from Last 3 Months Social History Tobacco Use Types Packs/Day Years [...] Comments Blood Pressure 103/61 09/29/2024 1:15 PM DISTANCE LEARNING COORDINATOR Pulse 80 09/29/2024 1:15 PM DISTANCE LEARNING COORDINATOR Temperature 36.1 ??C (96.9 ??F) 06/01/2023 1:26 PM CD T Respiratory Rate 26 09/29/2024 1:15 PM DISTANCE LEARNING COORDINATOR Oxygen Saturation 97% 09/29/2024 1:15 PM DISTANCE LEARNING COORDINATOR Inhaled Oxygen Concentration - - Weight 146.1 kg (322 lb 3.2 oz) 09/29/2024 9:00 AM DISTANCE LEARNING COORDINATOR Height 180.3 cm (5' 11 ) 09/29/2024 9:00 AM DISTANCE LEARNING COORDINATOR Body Mass Index 44.94 09/29/2024 9:00 AM DISTANCE LEARNING COORDINATOR Plan of Treatment Upcoming Encounters Date Type Department Care Team (Late st Contact Info) Description 08/16/2025 2:00 PM CDT Office Visit [facility] [address] [place] [address] [address] [place] [address] Bry Anne MD [address] [place] [address] [address] [place] [address] Health Maintenance Due Date Last Done Comments COLOGUARD (AGES 45-75) - COL ON CA SCREENING 1960 COLON MONITORING 1960 COLONOSCOPY - COLON CA SCREENING 1959 CT COLONOGRAPHY - COLON CA SCREENING 1960 Colorectal Cancer Screening 1960 FIT - COLON CA SCREENING 1960 FLEX SIG - COLON CA SCREENING 1960 HIV SCREENING 1974 HEPATITIS C SCREENING 07/30/1977 DTAP/TDAP/TD VACCINES (1 - Tdap) 1978 PNEUMOCOCCAL VACCINE 50+ (1 of 1 - PCV) 2009 ZOSTER VACCINE (1 of 2) 2009 Respiratory Syncytial Virus (RSV) Vaccine Pt: or over 60 yrs (1 - Risk 60-74 years 1-dose series) 2019 COVID-19 VACCINE (2023-2 5 season) 2024 INFLUENZA VACCINE (#1) 2024 DEPRESSION SCREENING 10/19/2024 06/01/2023 HEPATITIS B VACCINE Aged Out No longe r eligible based on patient's age to complete this topic HIB VACCINE Aged Out No longer eligi ble based on patient's age to complete this topic HPV VACCINE Aged Out No longer eligi ble based on patient's age to complete this topic MENINGOCOCCAL (Group B) VACCINE Aged Out No longer eligible based on patient's age to complete this topic MENINGOCOCCAL VACCINE Aged Out No rudy laurie eligible based on patient's age to complete this topic Procedures Procedure Name Priority Date/Time Associated Diagnosis Comments CARDIAC PROCEDURE ORDER 10/03/2024 6:58 PM DISTANCE LEARNING COORDINATOR CCL LEFT HEART CATH Routine 09/29/2024 1 1:08 AM DISTANCE LEARNING COORDINATOR CORONARY ANGIOGRAPHY Routine 09/29/2024 11:08 AM DISTANCE LEARNING COORDINATOR BASIC METABOLIC PANEL (CALCIUM TOTAL) Routine 09/13/2024 11:03 AM DISTANCE LEARNING COORDINATOR Abnormal stress test CBC W AUTO DIFFERENTIAL Routine 09/13/2024 11:03 AM DISTANCE LEARNING COORDINATOR Abnormal stress test HEMOGLOBIN A1C (EXTERNAL RESULT ENTRY) Routine 08/31/2024 NM MYOCARD PERF REST STRESS Routine 08/25/2024 11:16 AM DISTANCE LEARNING COORDINATOR Dyspnea, unspecified type STRESS TEST Routine 08/25/2024 9:35 AM DISTANCE LEARNING COORDINATOR Dyspnea, unspecified type LAB RESULTS ORDER 08/22/2024 from Last 3 Months Results * CARDIAC PROCEDURE ORDER (10/03/2024 6:58 PM DISTANCE LEARNING COORDINATOR) Narrative 10/03/2024 6:58 PM DISTANCE LEARNING COORDINATOR Ordered by an unspecified provider. Scanned Document CARDIAC SERVICES ORD ERABLES * CORONARY ANGIOGRAPHY, CCL LEFT HEART CATH (09/29/2024 11:08 AM DISTANCE LEARNING COORDINATOR) Anatomical Region Laterality Modality X-Ray Angiograph y Narrative 09/29/2024 11:25 AM DISTANCE LEARNING COORDINATOR Left main - short, no significant disease [...] * CBC WITH DIFFERENTIAL (09/13/2024 11:03 AM DISTANCE LEARNING COORDINATOR) WBC 6.7 3.4 - 10.8 x10E3/uL [facility] INSURANCE BILL Comment: Effective September 19, 2024 profile 140314 WBC will be made ??non-orderable as a [...] BLOOD SPECIMEN / Unknown 09/13/2024 11:03 AM DISTANCE LEARNING COORDINATOR 09/13/2024 Narrative [facility] INSURANCE BILL - 09/14/2024 7:13 AM DISTANCE LEARNING COORDINATOR Performed at: ??01 - [facility] [address] ??[id number] Manager Pet: Omi Monique PhD, Phone: ??[phone] Marco Antonio Gunn MD LAB - HEMATOLOGY ORD ERABLES [facility] INSURANCE BILL [address] [place] [address] * (ABNORMAL) BASIC METABOLIC PANEL (BMP) (09/13/2024 11:03 AM DISTANCE LEARNING COORDINATOR) Glucose 134(H) 70 - 99 mg/dL [facility] [...] BLOOD SPECIMEN / Unknown 09/13/2024 11:03 AM DISTANCE LEARNING COORDINATOR 09/13/2024 Narrative [facility] INSURANCE BILL - 09/14/2024 7:13 AM DISTANCE LEARNING COORDINATOR Performed at: ??01 - [address] ??[id number] Manager Pet: Omi Monique PhD, Phone: ??[phone] Marco Antonio Gunn MD LAB - CHEMISTRY JUSTINE LAWSON [facility] INSURANCE BILL [address] [place] [address] * (ABNORMAL) HEMOGLOBIN A1C (EXTERNAL RESULT ENTRY) (08/31/2024) Hemoglobin A1c (EXTERNAL RESULT) 6.8(H) % OUTSIDE REFERENCE LAB Comment:[facility] up - no lab indicated (scanned) Blood BLOOD SPECIMEN / Unknown 08/31/2024 Historical Provider LAB - CHEMISTRY O VALERIO OUTSIDE REFERENCE LAB * NM MYOCARD PERF REST STRESS (08/25/2024 11:16 AM DISTANCE LEARNING COORDINATOR) Anatomical Region Laterality Modality Chest Nuclear Digisoni cs 08/25/2024 9:20 AM DISTANCE LEARNING COORDINATOR Narrative Procedure Note Rashaun Chan MD - 08/25/2024 [address] [place] [address] [address] Nuclear Myocardial Perfusion Scan Report Pat.Name: MARBIN DE LA CRUZ Pat.ID: [id number] St.Date: 08/25/2024 Refer.MD: Jeannine Gtz Exam Time: 9:20:00 AM Study Type:Nuclear Myocardial Perfusion Scan Weight: 326lb Age: 10 1960,64Y Sex: MALE Sonogrphr: DWAINE Martínez Reason for Study: Dyspnea, Chest pressure Procedures: Lexiscan Perfusion Scan, Gated Stress Visit ID: [id number] Risk Factors:Hypertension, Diabetes, Hypercholesterolemia Clinical Symptoms:Dyspnea, Chest [...] Signed 08/25/2024 12:32 PM Rashaun Chan MD Bry Anne MD NM ORDERABLES * STRESS TEST Pharm-Lexiscan (Regadenoson) (08/25/2024 9:35 AM DISTANCE LEARNING COORDINATOR) Anatomical Region Laterality Modality Cardiac Electrop hysiology 08/25/2024 8:30 AM DISTANCE LEARNING COORDINATOR Narrative 08/25/2024 11:45 AM DISTANCE LEARNING COORDINATOR Patient Info Name: ? Marbin De La Cruz Age: ? 64 years : ? 1960 Gender: ? Male Accession #: ? [id number] Ht: ? 71 in Wt: ? 326 lb BSA: ? 2.79 m2 HR: ? 75 bpm BP: ? 146 / ? 75 mmHg Heart Rhythm: ? Sinus Rhythm, ST ??T wave abnormality, consider anterolateral ischemia Exam Date: ? 08/25/2024 8:30 AM Patient Status: ? O/P Study Site: ? [facility] EStudy Info Exam Type: ? STRESS TEST Indications ?R06.00 - Dyspnea, ??unspecified type Procedure(s) ??* Pharmacological stress test was performed. Staff Referring Physician: ? Bry Anne Ordering Provider: ? Bry Anne Attending Physician: ? Bry Anne Nurse: ? Ernst Price Exercise Physician: ? Rashaun Chan Stress Staff: ? Ernst Mcintyre Summary ??* Indication for the stress test, [...] 8:30 AM Patient Status: O/P Study Site: [facility] Primary Location: [facility] EStud Info Exam Type: STRESS TEST Indications R06.00 - Dyspnea, unspecified type Procedure(s) * Pharmacological stress test was performed. Staff Referring Physician: Bry Anne Ordering Provider: Bry Anne Attending Physician: Bry Anne Nurse: Ernst Price Exercise Physician: Rashaun Chna Stress Staff: Ernst Mcintyre Summary * Indication [...] by Rashaun Chan on 08/25/2024 11:45 AM Bry Anne MD CARDIAC SERVICES CUP ID * LAB RESULTS ORDER (08/22/2024) 08/22/2024 Narrative 08/22/2024 Ordered by an unspecified provider. Scanned Document LAB - THERAPEUTIC DR PENDLETON MONITORING ORDERABLES from Last 3 Months Advance Directives * Full Code (Latest Code Status on File) Date Activated Date Inactivated Comments 09/29/2024 11:23 AM 09/29/2024 2:43 PM Care Teams At Risk Paraprofessional Relationship Specialty Start Date End Date David Gtz MD [address] [facility] [address] [place], [place] [id number] PCP - General 08/01/08 Bry Anne MD [address] [place] [address] Cardiology 09/30/19 Abner Mancia MD [address] [place] [address] Urology 09/30/19 Donald Frank MD [address] [place] [address] Referring Physician Plastic and Reconstructive Surgery 09/30/19
--- OUTSIDE RECORDS SUMMARY | 2024-11-10 15:11 | XMS_ITS | Continuity of Care Document ---
Author Organization [facility] Address [address] [place] [address] [address] [place] [address] Phone Care Team Providers Care Fall Intern Name Role Phone Sarkis, Bryant Unavailable Unavailable Advance Directives Directive Yes / No Effective Date File Name No Information Encounters Encounter Description Practice Location Reason(s) For Visit Diagnoses Date Provider Providers Copied on Encounter [facility], [address], [place], [place], [id number], [place] tel:[phone] [facility] No Information Mar-2 0-200 6 Doisy Edward. [address] [facility] , [address], [place], [address], [place]. tel:[phone] Family History Family Member Type Diagnosis Age At Onset No Information Payers Payer name Insurance type Covered green party ID Authoriza titeresa(s) [facility] CI [id number] Social History Type Description Quantity Date Captured Comments Sex Male Smoking Status No Information Chief Complaint And Reason For Visit No Information Reason For Referral Reason For Referral No Information History Of Present Illness Encounter Date Complaint History Of Prese nt Illness No Information Functional Status Date Functional Assessmen t No Information Instructions Date Instruction Additional Infor mation No Information Assessments Type Assessment Date No Information Patient Care Teams Name Effective Dates (start - stop) Status Members No Information
--- OUTSIDE RECORDS SUMMARY | 2024-11-10 15:11 | XMS_ITS | Referral Summary ---
Author Organization [facility] Address [address] [place] [address] Care Team Providers Care Account Advisor Name Role Phone David Gtz MD Primary Care Provider + Bry Anne MD Unavailable Abner Mancia MD Unavailable Donald Frank MD Unavailable [phone] Source Comments [facility],non-owned Affiliates and Associated Physician Practices is amultiple site organization consisting of ambulatory clinics and hospital sitesin [place], [place], [place] and [place]. This disclosure is being madepursuant to the Care Everywhere program and may not contain all information available regarding this patient. Last updated 18.[facility] Encounters Date Type Department Care Team Description 09/29/2024 Travel 09/29/2024 10:00 AM PANTRY CHEF - 09/29/2024 11:30 AM PANTRY CHEF Surgery [facility] - Cardiac Room Cleaner [address] [place] [address] Marco Antonio Gunn MD Coronary Angiography 09/29/2024 8:38 AM PANTRY CHEF - 09/29/2024 1:37 PM PANTRY CHEF Hospital Encounter [facility] - Cardiac Room Cleaner [address] [place] [address] Marco Antonio Gunn MD Cardiac Catheterization Discharge Disposition: Home or Self Care 09/26/2024 Telephone [facility] [address] [place] [address] Bry Anne MD Preop Question 08/31/2024 Telephone [facility] [address] [place] [address] Marco Antonio Gunn MD Surgery Scheduling 08/25/2024 7:58 AM PANTRY CHEF Hospital Encounter [facility] [address], [address] [place] [address] Bry Anne MD Cardiovascular Disease Discharge Disposition: Home or Self Care 08/25/2024 7:59 AM PANTRY CHEF - 08/25/2024 11:59 PM PANTRY CHEF Hospital Encounter [facility] [address], [address] [address] Bry Anne MD Discharge Disposition: Home or Self Care 08/10/2024 2:00 PM CDT Office Visit [facility] [address] [place] [address] Bry Anne MD Dyspnea, unspecified type (Primary Dx) from Last 3 Months Allergies Active Allergy Reactions Criticality Noted Date [...] Comments Blood Pressure 103/61 09/29/2024 1:15 PM PANTRY CHEF Pulse 80 09/29/2024 1:15 PM PANTRY CHEF Temperature 36.1 ??C (96.9 ??F) 06/01/2023 1:26 PM CD T Respiratory Rate 26 09/29/2024 1:15 PM PANTRY CHEF Oxygen Saturation 97% 09/29/2024 1:15 PM PANTRY CHEF Inhaled Oxygen Concentration - - Weight 146.1 kg (322 lb 3.2 oz) 09/29/2024 9:00 AM PANTRY CHEF Height 180.3 cm (5' 11 ) 09/29/2024 9:00 AM PANTRY CHEF Body Mass Index 44.94 09/29/2024 9:00 AM PANTRY CHEF Plan of Treatment Upcoming Encounters Date Type Department Care Team (Late st Contact Info) Description 08/16/2025 2:00 PM CDT Office Visit [facility] [address] [place] [address] [address] [place] [address] Bry Anne MD [address] [place] [address] [address] [place] [address] Procedures Procedure Name Priority Date/Time Associated Diagnosis Comments CARDIAC PROCEDURE ORDER 10/03/2024 6:58 PM PANTRY CHEF CCL LEFT HEART CATH Routine 09/29/2024 1 1:08 AM PANTRY CHEF CORONARY ANGIOGRAPHY Routine 09/29/2024 11:08 AM PANTRY CHEF BASIC METABOLIC PANEL (CALCIUM TOTAL) Routine 09/13/2024 11:03 AM PANTRY CHEF Abnormal stress test CBC W AUTO DIFFERENTIAL Routine 09/13/2024 11:03 AM PANTRY CHEF Abnormal stress test HEMOGLOBIN A1C (EXTERNAL RESULT ENTRY) Routine 08/31/2024 NM MYOCARD PERF REST STRESS Routine 08/25/2024 11:16 AM PANTRY CHEF Dyspnea, unspecified type STRESS TEST Routine 08/25/2024 9:35 AM PANTRY CHEF Dyspnea, unspecified type LAB RESULTS ORDER 08/22/2024 from Last 3 Months Results * CARDIAC PROCEDURE ORDER (10/03/2024 6:58 PM PANTRY CHEF) Narrative 10/03/2024 6:58 PM PANTRY CHEF Ordered by an unspecified provider. Scanned Document CARDIAC SERVICES ORD ERABLES * CORONARY ANGIOGRAPHY, CCL LEFT HEART CATH (09/29/2024 11:08 AM PANTRY CHEF) Anatomical Region Laterality Modality X-Ray Angiograph y Narrative 09/29/2024 11:25 AM PANTRY CHEF Left main - short, no significant disease [...] Marco Antonio Gunn MD CV CARDIAC CATH PETERI Roni PROCS * CBC WITH DIFFERENTIAL (09/13/2024 11:03 AM PANTRY CHEF) WBC 6.7 3.4 - 10.8 x10E3/uL [facility] INSURANCE BILL Comment: Effective September 19, 2024 profile [id number] WBC will be made ??non-orderable as a [...] BLOOD SPECIMEN / Unknown 09/13/2024 11:03 AM PANTRY CHEF 09/13/2024 Narrative [facility] INSURANCE BILL - 09/14/2024 7:13 AM PANTRY CHEF Performed at: ??01 - [facility] [address] ??[id number] Car Rental Service Attendant: Omi Monique PhD, Phone: ??[phone] Marco Antonio Gunn MD LAB - HEMATOLOGY ORD ANN-MARIE [facility] INSURANCE BILL [address] [place] [address] * (ABNORMAL) BASIC METABOLIC PANEL (BMP) (09/13/2024 11:03 AM PANTRY CHEF) Glucose 134(H) 70 - 99 mg/dL [facility] [...] BLOOD SPECIMEN / Unknown 09/13/2024 11:03 AM PANTRY CHEF 09/13/2024 Narrative [facility] INSURANCE BILL - 09/14/2024 7:13 AM PANTRY CHEF Performed at: ??01 - [facility] [address] ??[id number] Car Rental Service Attendant: Omi Monique PhD, Phone: ??[phone] Marco Antonio Gunn MD LAB - CHEMISTRY JUSTINE ALWSON [facility] INSURANCE BILL [address] [place] [address] * (ABNORMAL) HEMOGLOBIN A1C (EXTERNAL RESULT ENTRY) (08/31/2024) Hemoglobin A1c (EXTERNAL RESULT) 6.8(H) % OUTSIDE REFERENCE LAB Comment:[facility] up - no lab indicated (scanned) Blood BLOOD SPECIMEN / Unknown 08/31/2024 Historical Provider LAB - CHEMISTRY O RDERABLES OUTSIDE REFERENCE LAB * NM MYOCARD PERF REST STRESS (08/25/2024 11:16 AM PANTRY CHEF) Anatomical Region Laterality Modality Chest Nuclear Digisoni cs 08/25/2024 9:20 AM PANTRY CHEF Narrative Procedure Note Rashaun Chan MD - 08/25/2024 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 Marbin De La Cruz Age: ? 64 years : ? 1960 Gender: ? Male Accession #: ? [id number] Ht: ? 71 in Wt: ? 326 lb BSA: ? 2.79 m2 HR: ? 75 bpm BP: ? 146 / ? 75 mmHg Heart Rhythm: ? Sinus Rhythm, ST ??T wave abnormality, consider anterolateral ischemia Exam Date: ? 08/25/2024 8:30 AM Patient Status: ? O/P Study Site: ? [facility] Primary Location: ? [facility] EStudy Info Exam Type: ? STRESS TEST [...] AM Patient Status: O/P Study Site: [facility] Primary Location: [facility] EStudy Info Exam Type: STRESS TEST Indications [...] 11:23 AM 09/29/2024 2:43 PM Care Teams Account Advisor Relationship Specialty Start Date End Date David Gtz MD [address] [facility] [facility] [address] [place] [address] PCP - General 08/01/08 Bry Anne MD [address] [place] [address] Cardiology 09/30/19 Abner Mancia MD [address] [place] [address] Urology 09/30/19 Donald Frank MD [address] [place] [id number] Referring Physician Plastic and Reconstructive Surgery 09/30/19
--- OUTSIDE RECORDS SUMMARY | 2024-11-10 15:12 | XMS_ITS | Referral Summary ---
Author Organization [facility] Medical [facility] Address [address] [place] [address] Care Team Providers Care General Partner Name Role Phone David Gtz MD Primary Care Prov ider Allergies Active Allergy Reactions Criticality Noted Date Comments Adhesive Rash Medium 11/23/2019 Sores and rash Hydrocodone-Acetaminophen Rash Medium 07/11/2016 Medications allopurinol (ZYLOPRIM) 300 mg tabletIndications: prevention of acute gout attack Take 300 mg by mouth every morning 02/19/20 18 Active atorvastatin (LIPITOR) 20 mg tabletIndications: hyperlipidemia Take 20 mg by mouth every morning 02/19/20 18 Active glimepiride (AMARYL) 1 mg tabletIndications: type 2 diabetes mellitus Take 1 mg by mouth daily before breakfast 04/08/20 18 Active TOPROL XL 100 mg 24 hr tabletIndications: hypertension Take 100 mg by mouth 3 (three) times a day 02/19/20 18 Active multivitamin with minerals tablet Take 1 tablet by mouth every morning Active pioglitazone (ACTOS) 45 mg tabletIndications: type 2 diabetes mellitus Take 45 mg by mouth every morning 02/19/20 18 Active spironolactone (ALDACTONE) 25 mg tabletIndications: hypertension Take 25 mg by mouth every morning 02/19/20 18 Active valsartan (DIOVAN) 320 mg tabletIndications: hypertension Take 160 mg by mouth every morning 01/28/20 18 Active aspirin 81 mg enteric coated tabletIndications: prevention of thrombosis Take 81 mg by mouth every morning Active minoxidil (LONITEN) 2.5 mg tabletIndications: hypertension Take 5 mg by mouth daily Active oxyCODONE (ROXICODONE) 5 mg immediate release tabletIndications: Pain Take 1 tablet (5 mg total) by mouth every 6 (six) hours as needed for pain 10 tablet 12/11/19 20 Active cyclobenzaprine (FLEXERIL) 10 mg tablet Take 1 tablet (10 mg total) by mouth 3 (three) times a day as needed for muscle spasms 15 tablet 12/11/19 20 Active ondansetron ODT (ZOFRAN-ODT) 4 mg disintegrating tabletIndications: nausea and vomiting Take 1 tablet (4 mg total) by mouth every 6 (six) hours as needed for nausea or vomiting 20 tablet 12/11/19 20 Active polyethylene glycol (MIRALAX) 17 gram packetIndications: constipation Take 1 packet (17 g total) by mouth daily as needed for constipation 10 packet 12/11/19 20 Active bismuth tribrom-petrolatum ,wh (Xeroform) 5 X 9 bandage Apply 1 bandage daily and Prn to wound 90 each 3 01/04/20 20 Active betamethasone valerate (VALISONE) 0.1 % ointment Apply topically 2 (two) times a day Apply for 3 week on and 1 week off then repeat. 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 Overview (10/20/2019): Added automatically from request for surgery [id number] Abdominal pannus 10/20/2019 Overview (10/21/2019): Added automatically from request for surgery [id number] Hemangioma of skin 03/31/2017 Skin benign neoplasm 09/30/2016 Eczema 09/30/2016 Balanitis xerotica obliterans 06/26/2016 Skin neoplasm 06/18/2016 Skin tag 06/18/2016 Rash 06/10/2016 Lichen sclerosus et atrophicus 06/10/2016 Benign neoplastic disease 06/10/2016 Hypertension 07/14/2014 Social History Tobacco Use Types Packs/Day Years Used Date Smoking Tobacco: Never Smokeless Tobacco: Never Alcohol Use Standard Drinks/Week Comments Never 0 (1 standard drink = 0.6 oz pur e alcohol) AUDIT-C Answer Date Recorded Frequency of Alcohol Consumption Never 11/23/2019 Average Number of Drinks Not on file 020 Frequency of Binge Drinking Not on file 02/2020 Sex and Gender Information Value Date Recorded Sex Assigned at Not on file Legal Sex Male 4:44 AM USER SUPPORT SPECIALIST Gender Identity Not on file Sexual Orientation Not on file Last Filed Vital Signs Vital Sign Reading Time Taken Comments Blood Pressure 132/62 09/28/2021 1:35 PM USER SUPPORT SPECIALIST Pulse 76 09/28/2021 1:35 PM USER SUPPORT SPECIALIST Temperature 36.8 ??C (98.2 ??F) 09/28/2021 1:35 PM CS T Respiratory Rate 18 09/28/2021 1:35 PM USER SUPPORT SPECIALIST Oxygen Saturation 97% 09/28/2021 3:07 PM USER SUPPORT SPECIALIST Inhaled Oxygen Concentration - - Weight 144.8 kg (319 lb 4.8 oz) 09/28/2021 1:35 PM USER SUPPORT SPECIALIST Height 180.3 cm (5' 11 ) 09/28/2021 1:35 PM USER SUPPORT SPECIALIST Body Mass Index 44.53 09/28/2021 1:35 PM USER SUPPORT SPECIALIST Plan of Treatment Not on file Insurance [place] [employer] [facility] Flip[employer] ID [employer] Advance Directives For more information, please contact: [phone] Documents on File Type Date Recorded 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
--- OUTSIDE RECORDS SUMMARY | 2024-11-10 15:12 | XMS_ITS | Clinical Summary ---
Author Organization [facility] Address [address], [address] [address] Phone Care Team Providers Care Police Sergeant Precinct Name Role Phone David Gtz MD Primary Care Provider + Bry Marks DO Unavailable [phone] Allergies Active Allergy Reactions Criticality Noted Date Comments Hydrocodone-Acetaminophen Unknown 07/11/2016 Medications polyethylene glycol (MIRALAX) Powder Mix the entire bottle with 64 oz of a clear liquid. Use as directed by the office for colonoscopy prep. 255 g 0 6 Active metoprolol Succinate (TOPROL-XL) 100 MG TABLET SR 24 HR Take 100 mg by mouth 2 times daily as needed. Active minoxidil (LONITEN) 10 MG Tablet Take 10 mg by mouth daily. Active Aspirin 81 MG Tablet Take 81 mg by mouth daily. Active hydroCHLOROthia zide 25 MG Tablet Take 25 mg by mouth daily. Active Lawrence-3 Fatty Acids (FISH OIL PO) Take by mouth. Activ e Valsartan (DIOVAN) 320 MG Tablet Take 320 mg by mouth daily. Active Multiple Vitamins-Minera ls (MULTIVITAMIN PO) Take by mouth. Activ e Family History Medical History Relation Name Comments Cancer Other Diabetes Other Hypertension Other Relation Name Status Comments Other Social History Tobacco Use Types Packs/Day Years Used Date Smoking Tobacco: Never Alcohol Use Standard Drinks/Week Comments Yes 0 (1 standard drink = 0.6 oz pur e alcohol) Sex and Gender Information Value Date Recorded Sex Assigned at Not on file Legal Sex Male 7:50 PM CDT Gender Identity Not on file Sexual Orientation Not on file Plan of Treatment Health Maintenance Due Date Last Done Comments Hepatitis C Virus (HCV) Screening 1960 TdaP Immunization 1960 Cologuard 2009 Immunochemical Fecal Occult Blood 2009 Pneumococcal Immunization (5 0+ years) (1 of 1 - PCV) 2009 Zoster Immunization (1 of 2) 2009 PSA Discussion 2014 Influenza Immunization (#1) 2024 SARS-COV-2 Immunization ( - season) 2024 Colonoscopy 07/10/2026 07/10/2016 Colorectal Cancer Screening 07/10/2026 Respiratory Syncytial Virus (RSV) Immunization (Adult) (1 - 1-dose 75+ series) 2034 07/10/2016 Hepatitis B Immunization Aged Out No longer eligible based on patient's age to complete this topic Meningococcal Immunization (ACWY) Aged Out No longer eligible based on patient's age to complete this topic Pneumococcal Immunization Combined Aged Out No longer eligible based on patient's age to complete this topic Rotavirus Immunization Aged Out No lo nger eligible based on patient's age to complete this topic Procedures Procedure Name Priority Date/Time Associated Diagnosis Comments COLONOSCOPY Routine 07/10/2016 from Last 3 Months or Most Recently Relevant to Health Maintenance Results * COLONOSCOPY (07/10/2016) David Gtz MD PROCEDURE/MINOR SURGICAL ORDERABLES Final Result from Last 3 Months or Most Recently Relevant to Health Maintenance Insurance [facility] Care Teams Police Sergeant Precinct Relationship Specialty Start Date End Date David Gtz MD [address] [place] [address] PCP - General Family Medicine 07/11/16 Bry Marks DO [address] [place] [address] Gastroenterology 07/11/16
--- OUTSIDE RECORDS SUMMARY | 2024-11-10 15:12 | XMS_ITS | Clinical Summary ---
Author Organization [facility] Medical [facility] 2 Address [address] [place] [address] Care Team Providers Care Slicer Machine Operator Name Role Phone David Gtz MD Primary [...] (10/20/2019): Added automatically from request for surgery [id number] Abdominal pannus 10/20/2019 Overview (10/21/2019): Added automatically from request for surgery [id number] Hemangioma of skin 03/31/2017 Skin benign neoplasm 09/30/2016 Eczema 09/30/2016 Balanitis xerotica obliterans 06/26/2016 Skin neoplasm 06/18/2016 Skin tag 06/18/2016 Rash 06/10/2016 Lichen sclerosus et atrophicus 06/10/2016 Benign neoplastic disease 06/10/2016 Hypertension 07/14/2014 Surgical History Surgery Date Site/Laterality Comments KNEE SURGERY Knee Surgery - (Added by TW Conv) COLONOSCOPY Medical History Medical History Date Comments 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, soft tissue, and skin Skin neoplasm - (Added by TW Conv) Other hypertrophic disorders of the skin Acrochordon - (Added by TW Conv) Diabetes mellitus (HCC) ZULEYMA (obstructive sleep apnea) Lichen sclerosus Motion sickness Family History Medical History Relation Name Comments Hypertension Father Family history of hypertension - (Added by Conv) Coronary artery disease Mother Fami ly history of coronary artery disease - (Added by Conv) Heart attack Mother Family history of heart attack - (Added by Conv) Hypertension Mother Family history of hypertension - (Added by ) Hypertension Sister Family history of hypertension - (Added by ) Anesthesia problems Neg Hx Relation Name Status Comments Father Mother Sister Social History Tobacco Use Types Packs/Day Years [...] on file Legal Sex Male 4:44 AM RESPOOLER Gender Identity Not on file Sexual Orientation Not on file Obstetrics History Last Filed Vital Signs Vital Sign Reading Time Taken Comments Blood Pressure 132/62 09/28/2021 1:35 PM RESPOOLER Pulse 76 09/28/2021 1:35 PM RESPOOLER Temperature 36.8 ??C (98.2 ??F) 09/28/2021 1:35 PM CS T Respiratory Rate 18 09/28/2021 1:35 PM RESPOOLER Oxygen Saturation 97% 09/28/2021 3:07 PM RESPOOLER Inhaled Oxygen Concentration - - Weight 144.8 kg (319 lb 4.8 oz) 09/28/2021 1:35 PM RESPOOLER Height 180.3 cm (5' 11 ) 09/28/2021 1:35 PM RESPOOLER Body Mass Index 44.53 09/28/2021 1:35 PM RESPOOLER Plan of Treatment Not on file Insurance [employer] [place] [employer] [place] [employer] [place] Advance Directives For more information, please contact: [phone] Documents on File Type Date Recorded 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
[2024-11-10 17:09] LABS: Glucose Point of Care 97 mg/dl (65-105)
[2024-11-10] MEDS: METOPROLOL SUCCINATE EXT REL 100 MG TABCR PO (20:17)
[2024-11-10] MEDS: ASPIRIN 81 MG ENTERIC TABLET PO (20:17)
[2024-11-10 21:46] LABS: Glucose Point of Care 132 mg/dl (65-105)
[2024-11-11] VITALS: BP 114/52; PULSE 77; RESP 16; TEMP 36.5; O2SAT 97
[2024-11-11 05:39] VITALS: BP 125/54; PULSE 70; RESP 18; TEMP 36.6; O2SAT 100
[2024-11-11] MEDS: PIPERACILLN/TAZ 3.375GM/NS50ML 3.375 GM/50 ML BAG IVPB (05:53)
[2024-11-11 06:04] LABS: Hematocrit 35.3 % (42.0-52.0); Hemoglobin 11.1 g/dL (14.0-18.0); Mean Corpuscular HGB Conc 31.4 g/dl (32-36); Mean Corpuscular Hemoglobin 30.6 pg (26-34); Mean Corpuscular Volume 97.2 fl (80-100); Mean Platelet Volume 10.2 fl (7.4-10.4); Platelet Count Result 218 k/mm3 (150-375); Red Blood Count 3.63 M/mm3 (4.6-6.20); Red Cell Distribution Width 13.9 % (11.5-14.5); White Blood Count 5.7 K/mm3 (4.5-10.0)
[2024-11-11 06:30] LABS: Anion Gap 9 mmol/L (4-12); Blood Urea Nitrogen 14 mg/dL (9-20); CRP 7.1 mg/dL (<1.0); Calcium 8.4 mg/dL (8.4-10.2); Carbon Dioxide 23 mmol/L (22-30); Chloride 106 mmol/L (98-107); Estimated CRCL calculation 94 ml/min; Estimated Glomerular Filt Rate > 60; Glucose 101 mg/dL (65-110); Potassium 4.2 mmol/L (3.4-5.0); Sodium 138 mmol/L (137-145)
[2024-11-11 07:55] LABS: Glucose Point of Care 83 mg/dl (65-105)
[2024-11-11 08:00] VITALS: BP 133/45; PULSE 99; RESP 18; TEMP 36.6; O2SAT 81
[2024-11-11 08:43] VITALS: PULSE 70
[2024-11-11] MEDS: VALSARTAN 160 MG TABLET PO (08:43)
[2024-11-11] MEDS: allopurinoL 300 MG TABLET PO (08:43)
[2024-11-11] MEDS: SPIRONOLACTONE 25 MG TABLET BY MOUTH (08:43)
[2024-11-11] MEDS: METOPROLOL SUCCINATE EXT REL 100 MG TABCR 200 MG PO (08:43)
[2024-11-11] MEDS: ENOXAPARIN 40 MG/0.4 ML SYRINGE SUB-Q (08:49)
--- NOTE | 2024-11-11 11:37 | P.DS_ITS ---
DS: Admitting Diagnosis Discharge Date 11/11/2024 Admitting Diagnosis * Acute sigmoid diverticulitis with perforation * None insulin-dependent diabetes * Morbid obesity, BMI 44.1 * Essential hypertension * Obstructive sleep apnea DS: Discharge Diagnosis Discharge Diagnosis (1) Diverticulitis of large intestine with perforation: Qualifiers: Diverticulitis bleeding: without bleeding Qualified Code(s): K57.20 - Diverticulitis of large intestine with perforation and abscess without bleeding Code(s): K57.20 - Diverticulitis of large intestine with perforation and abscess without bleeding Status: Acute Assessment and Plan: Treated initially with bowel rest and IV Zosyn antibiotics. Fortunately been patient's pain resolved fairly quickly. He was able to start on liquids on hospital day 2. His diet was advanced to low-fiber diet on 11/10/2024. He tolerated this well. He was comfortable without oral analgesics, having bowel movements, ambulating in his room. He received instruction on a low-fiber diet for discharge. He is discharged at this time doing quite well. (2) Non-insulin dependent diabetes mellitus: Status: Chronic Assessment and Plan: Hospitalist consult it and managed (3) Essential (primary) hypertension: Code(s): I10 - Essential (primary) hypertension Status: Chronic Assessment and Plan: Maintained on his home meds (4) Obstructive sleep apnea on CPAP: Code(s): G47.33 - Obstructive sleep apnea (adult) (pediatric) Status: Chronic Assessment and Plan: On home settings CPAP at night (5) Gout, unspecified: Code(s): M10.9 - Gout, unspecified Status: Chronic Assessment and Plan: Continued on allopurinol DS: Summary Hospital Course Hospital Course: Treated initially with bowel rest and IV Zosyn antibiotics. Fortunately been patient's pain resolved fairly quickly. He was able to start on liquids on hospital day 2. His diet was advanced to low-fiber diet on 11/10/2024. He tole rated this well. He was comfortable without oral analgesics, having bowel movements, ambulating in his room. He received instruction on a low-fiber diet for discharge. He is discharged at this time doing quite well. Status at Discharge Functional status at discharge: independent ambulation Overall status at discharge: patient is progressing back to baseline Time Spent with Patient Time attestation: Total time spent providing and/or coordinating discharge services: Time spent: Less than 30 minutes DS: Data Data Completed and Pending Labs on day of discharge: Labs from last 24 hours 11/11/24 11/11/24 11/10/24 07:49 05:21 20:13 WBC 5.7 RBC 3.63 L Hgb 11.1 L Hct 35.3 L MCV 97.2 MCH 30.6 MCHC 31.4 L RDW 13.9 Plt Count 218 MPV 10.2 Sodium 138 Potassium 4.2 Chloride 106 Carbon Dioxide 23 Anion Gap 9 BUN 14 D Creatinine 1.00 Estim Creat Clear Calc 94 Estimated GFR > 60 Glucose 101 POC Capillary Glucose 83 132 H Calcium 8.4 C-Reactive Protein 7.1 H 11/10/24 11/10/24 16:59 12:07 WBC RBC Hgb Hct MCV MCH MCHC RDW Plt Count MPV Sodium Potassium Chloride Carbon Dioxide Anion Gap BUN Creatinine Estim Creat Clear Calc Estimated GFR Glucose POC Capillary Glucose 97 101 Calcium C-Reactive Protein Preliminary micro results at discharge 11/08/24 04:38 Blood Culture - Preliminary Blood 11/08/24 04:38 Blood Culture - Preliminary Blood Discharge Plan Discharge Attending physician on discharge: Noam Lujan Consulting providers: Amanda Medrano Discharging Clinician: Noam Lujan Anticipated Discharge Date/Time: 11/11/24 11:42 Patient Disposition: Home, Self-Care Activity: may shower and as tolerated Diet: diabetic and low fiber Discharge Instructions: * Take both antibiotics prescribed until they are gone. * Continue low-fiber diet until you see Dr. Lujan in the office * Ambulate at least 3 times a day at home. Okay to go for walks outside as weather allows. * May drive a car on Thursday * Call if lower abdominal pain recurs, temp is over 100.5, vomiting, or other significant change in condition. * If no bowel movement in the next couple of days, try milk of magnesia. If still no results, call Dr. Cottrell office. Patient Instructions: Antibiotic Form, Low Fiber Diet (DC), Diverticulitis Diet (DC) Patient Language: [place] Stand Alone Forms: General Discharge Information Follow-up/Referrals: Noam Lujan MD [Physician] - 2 Weeks (Call Dr. Cottrell office to make appointment) Discharge Medications: New levofloxacin 750 mg tablet 750 mg PO DAILY Qty: 4 0RF metronidazole 500 mg tablet 500 mg PO TID Qty: 12 0RF Continued Men 50 Plus Multivitamin 300-600-300 mcg tablet 1 tablet PO DAILY valsartan 320 mg tablet 160 mg PO DAILY Rx Instructions: TAKE 1 TABLET BY MOUTH EVERY DAY aspirin 81 mg Tablet 81 mg PO DAILY Patient Comments: TAKES AT HS metoprolol succinate 100 mg tablet extended release 24 hr See Rx Instructions .ROUTE .COMPLEX Qty: 270 3RF Dose Instruction: TAKE 3 TABLETS BY MOUTH EVERY DAY Patient Comments: TAKES 200 QAM, AND 100 HS Rx Instructions: TAKE 3 TABLETS BY MOUTH EVERY DAY atorvastatin 20 mg tablet See Rx Instructions .ROUTE .COMPLEX Qty: 90 3RF Dose Instruction: TAKE 1 TABLET BY MOUTH EVERY DAY Rx Instructions: TAKE 1 TABLET BY MOUTH EVERY DAY allopurinol 300 mg tablet 300 mg PO DAILY Qty: 90 3RF spironolactone 25 mg tablet See Rx Instructions .ROUTE .COMPLEX Qty: 90 3RF Dose Instruction: TAKE 1 TABLET BY MOUTH EVERY DAY Rx Instructions: TAKE 1 TABLET BY MOUTH EVERY DAY pioglitazone 45 mg tablet 45 mg PO DAILY Qty: 90 3RF (DME) OneTouch Ultra Test Strip See Rx Instructions .Route Qty: 100 3RF Rx Instructions: Use 1 daily to test blood glucose Ozempic 1 mg/dose (4 mg/3 mL) pen injector 1 mg subcut WEEKLY Qty: 3 5RF minoxidil 10 mg tablet See Rx Instructions .ROUTE .COMPLEX Qty: 45 2RF Dose Instruction: TAKE ONE-HALF TABLET BY MOUTH DAILY Rx Instructions: TAKE ONE-HALF TABLET BY MOUTH DAILY Date of admission: 11/08/24 03:28 Primary Care Provider: David Gtz Admitting Provider: Noam Lujan Attending physician on admission: Noam Lujan Condition: Improved
[2024-11-11 11:59] LABS: Glucose Point of Care 135 mg/dl (65-105)
--- NOTE | 2024-11-11 13:46 | PM.IMPN ---
Progress Note: A&P Assessment and Plan (1) Diverticulitis of large intestine with perforation: Qualifiers: Diverticulitis bleeding: without bleeding Qualified Code(s): K57.20 - Diverticulitis of large intestine with perforation and abscess without bleeding Code(s): K57.20 - Diverticulitis of large intestine with perforation and abscess without bleeding Status: Acute Assessment and Plan: - CT abd/pelvis: Acute sigmoid diverticulitis with pericolonic phlegmonous change and small amount of local free air, compatible with perforation. No mature drainable abscess. - General surgery following. -previously on Zosyn IV and started on Levaquin p.o. and Flagyl p.o. to complete antibiotic treatment. - Currently on low residue diet and offered information on low-residue diet per complex commercial litigation paralegal. - Continue to follow cultures, NGTD. - Continue pain meds PRN. (2) Non-insulin dependent diabetes mellitus: Status: Chronic Assessment and Plan: - A1C 6.8 on 09/11. - Blood glucose levels currently well controlled. - Currently poor PO intake and home dose insulin held. - Continue Low-dose SSI. - Continue to monitor for now. (3) Essential (primary) hypertension: Code(s): I10 - Essential (primary) hypertension Status: Chronic Assessment and Plan: - BP well controlled. - Continue home meds for now. (4) Obstructive sleep apnea on CPAP: Code(s): G47.33 - Obstructive sleep apnea (adult) (pediatric) Status: Chronic Assessment and Plan: - Continue CPAP. Plan Diet: Low fiber. DVT PPx: Lovenox SQ. Time Spent With Patient Time with patient: 15 - 25 minutes Subjective Date/time seen: 11/11/24 10:46 Patient states he's feeling much better and has been tolerating low-fiber diet with no distress, just some minimal discomfort to lower abdomen at times but much improved from previously. Patient reports 2 bowel movements last evening and to monitor this a.m. Interval history: Patient calm seated on chair with on the side. Looks to be in no acute distress. Review of Systems Review of Systems: All systems reviewed & are unremarkable except as noted in HPI and below Exam Narrative: General: Well appearing, no acute distress. HEENT: Atraumatic, PERRL, EOMI, moist mucosa. NECK: Supple. Lungs: Diminished but clear. Heart: RRR, no murmurs. Abdomen: Soft, minimal-tenderness to lower quadrant, obese, +ve BS X4 Quadrants. Neuro: Well oriented. CN II-XII grossly intact. Psych: Pleasant and co-operative. Objective Data Vital Signs Vital Signs: Vital Signs - 24 hr 11/10/24 16:00 11/10/24 20:00 11/10/24 20:00 Temperature 97.6 F 98 F Pulse Rate 80 77 Respiratory Rate 20 18 Blood Pressure 121/60 122/72 Pulse Oximetry 100 100 Oxygen Delivery Room Air 11/10/24 20:17 11/11/24 00:00 11/11/24 05:39 Temperature 97.7 F 97.8 F Pulse Rate 77 77 70 Respiratory Rate 16 18 Blood Pressure 114/52 L 125/54 L Pulse Oximetry 97 100 Oxygen Delivery 11/11/24 08:00 11/11/24 08:43 11/11/24 08:50 Temperature 97.9 F Pulse Rate 99 70 Respiratory Rate 18 Blood Pressure 133/45 L Pulse Oximetry 81 L Oxygen Delivery Room Air Intake/Output Intake/Output: Intake & Output 11/08/24 11/09/24 11/10/24 11/11/24 23:59 23:59 23:59 23:59 Intake Total 2250 4370.0 3444.7 640 Output Total 2 Balance 2248 4370.0 3444.7 640 Meds/Results Radiology Results: ITS Impressions Abdomen/Pelvis CT 11/08/24 06:03 Impression: Acute sigmoid diverticulitis with pericolonic phlegmonous change and small amount of local free air, compatible with perforation. No mature drainable abscess. Labs Labs: Laboratory Results - last 24 hr 11/10/24 11/10/24 11/11/24 16:59 20:13 05:21 WBC 5.7 RBC 3.63 L Hgb 11.1 L Hct 35.3 L MCV 97.2 MCH 30.6 MCHC 31.4 L RDW 13.9 Plt Count 218 MPV 10.2 Sodium 138 Potassium 4.2 Chloride 106 Carbon Dioxide 23 Anion Gap 9 BUN 14 D Creatinine 1.00 Estim Creat Clear Calc 94 Estimated GFR > 60 Glucose 101 POC Capillary Glucose 97 132 H Calcium 8.4 C-Reactive Protein 7.1 H 11/11/24 11/11/24 07:49 11:48 WBC RBC Hgb Hct MCV MCH MCHC RDW Plt Count MPV Sodium Potassium Chloride Carbon Dioxide Anion Gap BUN Creatinine Estim Creat Clear Calc Estimated GFR Glucose POC Capillary Glucose 83 135 H Calcium C-Reactive Protein Quality VTE Prophylaxis VTE prophylaxis: mechanical ordered and pharmacologic ordered Hospitalist MIPS Advance Care Plan I have confirmed that the patient's Advanced Care Plan is present, code status is documented, or surrogate decision maker is listed in patient medical record.: Yes Medication Reconciliation I have utilized all available resources to obtain, update and review the patients current medications (includes all prescriptions, OTC, herbals, cannabis, and nutritional supplements).: Yes
== END 2024-11-11 12:44 | disposition home or self-care (01) | DRG 392 ==
LOC: ANHED 11-08 02:49 → ANH2MED 11-08 03:39
PROVIDERS: Physician Assistant; Admitting Provider Surgery; Emergency Provider Emergency Medicine; PCP Family Medicine Adolescent Medicine; Visit Provider Surgery
DX: K57.20 Diverticulitis of large intestine with perforation and abscess without bleeding (principal); Z68.41 Body mass index [BMI] 40.0-44.9, adult; I10 Essential (primary) hypertension; I87.2 Venous insufficiency (chronic) (peripheral); E11.319 Type 2 diabetes mellitus with unspecified diabetic retinopathy without macular edema; E78.5 Hyperlipidemia, unspecified; E66.01 Morbid (severe) obesity due to excess calories; G47.33 Obstructive sleep apnea (adult) (pediatric); Z79.82 Long term (current) use of aspirin
CPT/HCPCS: 36415; 74177; 80048; 80053; 81003; 82948; 83605; 83690; 85025; 85027; 86140; 87040; 96361; 96374; 96375; 99285; A9270; J1171; J1650; J2270; J2405; J2543; J3480; J7030; J7120; Q9967

== ENCOUNTER 2024-12-07 10:01 | Outpatient (CLI) | payer MEDICARE, SELFPAY ==
--- NOTE | ~2024-12-07 | CT_ITS ---
Non-contrast CT scan of the Abdomen and Pelvis Clinical indication: Diverticulitis Technique: 2.5 mm axial scans were obtained through the abdomen and pelvis without intravenous or or al contrast. Dose reduction technique was used on this scan by utilizing automated exposure control a nd iterative reconstruction technique. The dose-length product (DLP) was 1877.10 mGy-cm. COMPARISON: 11/08/2024 Findings: Images through the lung bases reveal discoid atelectasis or scarring at the left lower lob e. There is no evidence of renal or ureteral calculi. The kidneys and the ureters are nondilated. The liver, spleen, pancreas, gallbladder, and adrenals appear normal. There are atherosclerotic calci fications of the aorta. There is wall thickening and pericolonic inflammatory change at the proximal to mid sigmoid colon com patible with diverticulitis. There is pericolonic phlegmonous change with small bubbles of free air, compatible with local microperforation. No mature drainable abscess. Images through the pelvis were performed. There is no evidence of ascites or lymphadenopathy. Urinary bladder unremarkable. No pelvic mass evident. Impression: Perforated sigmoid diverticulitis is similar in appearance to prior exam, with small amount of local free air and phlegmonous change. No Christiano drainable abscess. Reviewed, dictated and finalized at [facility]. OLOGY TECHNICIAN Impression: Perforated sigmoid diverticulitis is similar in appearance to prior exam, with small amount of local free air and phlegmonous change. No Christiano drainable abs cess.
--- OUTSIDE RECORDS SUMMARY | 2024-12-07 10:14 | XMS_ITS | Referral Summary ---
Author Organization [facility] Medical [facility] 2 Address [address] [place] [address] Care Team Providers Care V Block Saw Operator Name Role Phone David Gtz MD [...] (10/20/2019): Added automatically from request for surgery [id number] Abdominal pannus 10/20/2019 Overview (10/21/2019): Added automatically from request for surgery [id number] Hemangioma of skin 03/31/2017 Skin benign neoplasm [...] on file Legal Sex Male 4:44 AM FAITH DOCTOR Gender Identity Not on file Sexual Orientation Not on file Last Filed Vital Signs Vital Sign Reading Time Taken Comments Blood Pressure 132/62 09/28/2021 1:35 PM FAITH DOCTOR Pulse 76 09/28/2021 1:35 PM FAITH DOCTOR Temperature 36.8 C (98.2 F) 09/28/2021 1:35 PM FAITH DOCTOR Respiratory Rate 18 09/28/2021 1:35 PM FAITH DOCTOR Oxygen Saturation 97% 09/28/2021 3:07 PM FAITH DOCTOR Inhaled Oxygen Concentration - - Weight 144.8 kg (319 lb 4.8 oz) 09/28/2021 1:35 PM FAITH DOCTOR Height 180.3 cm (5' 11 ) 09/28/2021 1:35 PM FAITH DOCTOR Body Mass Index 44.53 09/28/2021 1:35 PM FAITH DOCTOR Plan of Treatment Not on file Insurance [facility] [employer] [place] [employer] [place] Advance Directives For more information, please contact: [phone] Documents on File Type Date Recorded 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
--- OUTSIDE RECORDS SUMMARY | 2024-12-07 10:14 | XMS_ITS | Clinical Summary ---
Author Organization [facility] Address [address], [address] [address] Phone Care Team Providers Care Director Data Analytics Name Role Phone David Gtz MD Primary Care Provider + Bry Marks DO Unavailable [phone] Allergies Active Allergy Reactions Criticality Noted [...] Take 25 mg by mouth daily. Active M[place]scott-3 Fatty Acids (FISH OIL PO) Take by [...] Most Recently Relevant to Health Maintenance Insurance [facility] Care Teams Director Data Analytics Relationship Specialty Start Date End Date David Gzt MD [address] [place] [address] PCP - General Family Medicine 07/11/16 Bry Marks DO [address] [place] [address] Gastroenterology 07/11/16
--- OUTSIDE RECORDS SUMMARY | 2024-12-07 10:14 | XMS_ITS | Clinical Summary ---
Author Organization [facility] Address [address] [place] [address] Care Team Providers Care Laser Cutter Name Role Phone David Gtz MD Primary Care Provider + Bry Anne MD Unavailable [phone] Abner Mancia MD Unavailable Donald Frank MD Unavailable [phone] Source Comments [facility],non-owned Affiliates and Associated Physician Practices is amultiple site organization consisting of ambulatory clinics and hospital sitesin [place], [place], [place] and [place]. This disclosure is being madepursuant to the Care Everywhere program and may not contain all information available regarding this patient. Last updated 18.[facility] Allergies Active Allergy Reactions Criticality Noted Date [...] Department Care Team Description 09/29/2024 10:00 AM RAILROAD OPERATOR - 09/29/2024 11:30 AM [facility] Surgery [facility] Director [address] [place] [id number] Marco Antonio Gunn MD Coronary Angiography 09/29/2024 8:38 AM RAILROAD OPERATOR - 09/29/2024 1:37 PM [facility] Hospital Encounter [facility] Director [address] [place] [address] Marco Antonio Gunn MD Cardiac Catheterization Discharge Disposition: Home or Self Care 09/29/2024 Travel 09/26/2024 Telephone [facility] V[facility] Care [address] [place] [address] [address] [place] [address] Bry Anne MD Preop Question from Last 3 Months Social History Tobacco [...] Comments Blood Pressure 103/61 09/29/2024 1:15 PM RAILROAD OPERATOR Pulse 80 09/29/2024 1:15 PM RAILROAD OPERATOR Temperature 36.1 C (96.9 F) 06/01/2023 1:26 PM CDT Respiratory Rate 26 09/29/2024 1:15 PM RAILROAD OPERATOR Oxygen Saturation 97% 09/29/2024 1:15 PM RAILROAD OPERATOR Inhaled Oxygen Concentration - - Weight 146.1 kg (322 lb 3.2 oz) 09/29/2024 9:00 AM RAILROAD OPERATOR Height 180.3 cm (5' 11 ) 09/29/2024 9:00 AM RAILROAD OPERATOR Body Mass Index 44.94 09/29/2024 9:00 AM RAILROAD OPERATOR Plan of Treatment Upcoming Encounters Date Type Department Care Team (Late st Contact Info) Description 08/16/2025 2:00 PM CDT Office Visit [facility] [address] [place] [address] [address] [place], [place] [id number] Bry Anne MD [address] [place] [address] [address] [place] [address] Health Maintenance Due Date Last Done Comments [...] 60-74 years 1-dose series) 2019 COVID-19 VACCINE ( - 2023-2 5 season) 2024 INFLUENZA VACCINE (#1) 2024 [...] Comments CARDIAC PROCEDURE ORDER 10/03/2024 6:58 PM RAILROAD OPERATOR CCL LEFT HEART CATH Routine 09/29/2024 1 1:08 AM RAILROAD OPERATOR CORONARY ANGIOGRAPHY Routine 09/29/2024 11:08 AM RAILROAD OPERATOR BASIC METABOLIC PANEL (CALCIUM TOTAL) Routine 09/13/2024 11:03 AM RAILROAD OPERATOR Abnormal stress test CBC W AUTO DIFFERENTIAL Routine 09/13/2024 11:03 AM RAILROAD OPERATOR Abnormal stress test from Last 3 Months Results * CARDIAC PROCEDURE ORDER (10/03/2024 6:58 PM RAILROAD OPERATOR) Narrative 10/03/2024 6:58 PM RAILROAD OPERATOR Ordered by an unspecified provider. Scanned Document CARDIAC SERVICES ORD ERABLES * CORONARY ANGIOGRAPHY, CCL LEFT HEART CATH (09/29/2024 11:08 AM RAILROAD OPERATOR) Anatomical Region Laterality Modality X-Ray Angiograph y Narrative 09/29/2024 11:25 AM RAILROAD OPERATOR Left main - short, no significant disease [...] Marco Antonio Gunn MD CV CARDIAC CATH CINTHYA Tamayo PROCS * CBC WITH DIFFERENTIAL (09/13/2024 11:03 AM RAILROAD OPERATOR) WBC 6.7 3.4 - 10.8 x10E3/uL [facility] INSURANCE BILL Comment: Effective September 19, 2024 profile [id number] WBC will be made non-orderable as a stand-alone order code. RBC 4.20 [...] BLOOD SPECIMEN / Unknown 09/13/2024 11:03 AM RAILROAD OPERATOR 09/13/2024 Narrative [facility] INSURANCE BILL - 09/14/2024 7:13 AM RAILROAD OPERATOR Performed at: 01 - [facility] [address] [id number] Cable Installer Repairer Helper: Omi Monique PhD, Phone: [phone] Marco Antonio Gunn MD LAB - HEMATOLOGY ORD ERABLES [facility] INSURANCE BILL [address] [place] [address] * (ABNORMAL) BASIC METABOLIC PANEL (BMP) (09/13/2024 11:03 AM RAILROAD OPERATOR) Glucose 134(H) 70 - 99 mg/dL [facility] [...] BLOOD SPECIMEN / Unknown 09/13/2024 11:03 AM RAILROAD OPERATOR 09/13/2024 Narrative [facility] INSURANCE BILL - 09/14/2024 7:13 AM RAILROAD OPERATOR Performed at: 01 - [facility] [address] [id number] Cable Installer Repairer Helper: Omi Monique PhD, Phone: [phone] Marco Antonio Gunn MD LAB - CHEMISTRY JUSTINE LAWSON Performing Organization Address City/[facility]/ZIP Co de Phone Number [facility] INSURANCE BILL [address] [place] [address] from Last 3 Months Advance Directives * Full Code (Latest Code Status on File) Date Activated Date Inactivated Comments 09/29/2024 11:23 AM 09/29/2024 2:43 PM Care Teams Laser Cutter Relationship Specialty Start Date End Date David Gtz MD [address] [facility] [address] [place], [place] [id number] PCP - General 08/01/08 Bry Anne MD [address] [place] [address] Cardiology 09/30/19 Abner Mancia MD [address] [place] [address] Urology 09/30/19 Donald Frank MD [address] [place] [address] Referring Physician Plastic and Reconstructive Surgery 09/30/19
--- OUTSIDE RECORDS SUMMARY | 2024-12-07 10:14 | XMS_ITS | Clinical Summary ---
Author Organization [facility] Medical [facility] 2 Address [address] [place] [address] Care Team Providers Care Wrap Turner Name Role Phone David Gtz MD Primary [...] (10/20/2019): Added automatically from request for surgery [id number] Abdominal pannus 10/20/2019 Overview (10/21/2019): Added automatically from request for surgery [id number] Hemangioma of skin 03/31/2017 Skin benign neoplasm 09/30/2016 Eczema 09/30/2016 Balanitis xerotica obliterans 06/26/2016 Skin neoplasm 06/18/2016 Skin tag 06/18/2016 Rash 06/10/2016 Lichen sclerosus et atrophicus 06/10/2016 Benign neoplastic disease 06/10/2016 Hypertension 07/14/2014 Surgical History Surgery Date Site/Laterality Comments KNEE SURGERY Knee Surgery - (Added by Conv) COLONOSCOPY Medical History Medical History Date Comments 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, soft tissue, and skin Skin neoplasm - (Added by Conv) Other hypertrophic disorders of the skin Acrochordon - (Added by ) Diabetes mellitus (HCC) ZULEYMA (obstructive sleep apnea) Lichen sclerosus Motion sickness Family History Medical History Relation Name Comments Hypertension Father Family history of hypertension - (Added by Conv) Coronary artery disease Mother Fami ly history of coronary artery disease - (Added by ) Heart attack Mother Family history of heart attack - (Added by ) Hypertension Mother Family history of hypertension - [...] on file Legal Sex Male 4:44 AM PHYSICIANS ASSISTANT Gender Identity Not on file Sexual Orientation Not on file Obstetrics History Last Filed Vital Signs Vital Sign Reading Time Taken Comments Blood Pressure 132/62 09/28/2021 1:35 PM PHYSICIANS ASSISTANT Pulse 76 09/28/2021 1:35 PM PHYSICIANS ASSISTANT Temperature 36.8 C (98.2 F) 09/28/2021 1:35 PM PHYSICIANS ASSISTANT Respiratory Rate 18 09/28/2021 1:35 PM PHYSICIANS ASSISTANT Oxygen Saturation 97% 09/28/2021 3:07 PM PHYSICIANS ASSISTANT Inhaled Oxygen Concentration - - Weight 144.8 kg (319 lb 4.8 oz) 09/28/2021 1:35 PM PHYSICIANS ASSISTANT Height 180.3 cm (5' 11 ) 09/28/2021 1:35 PM PHYSICIANS ASSISTANT Body Mass Index 44.53 09/28/2021 1:35 PM PHYSICIANS ASSISTANT Plan of Treatment Not on file Insurance [employer] [place] [employer] [place] [employer] [place] Advance Directives For more information, please contact: [phone] Documents on File Type Date Recorded 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
--- OUTSIDE RECORDS SUMMARY | 2024-12-07 10:15 | XMS_ITS | Referral Summary ---
Author Organization [facility] Address [address] [place] [address] Care Team Providers Care Billboard Erector Helper Name Role Phone David Gtz MD Primary Care Provider + Bry Anne MD Unavailable [phone] Abner Mancia MD Unavailable Donald Frank MD Unavailable [phone] Source Comments [facility],non-owned Affiliates and Associated Physician Practices is amultiple site organization consisting of ambulatory clinics and hospital sitesin [place], [place], [place] and [place]. This disclosure is being madepursuant to the Care Everywhere program and may not contain all information available regarding this patient. Last updated 18.[facility] Encounters Date Type Department Care Team Description 09/29/2024 Travel 09/29/2024 10:00 AM PHYSIOTHERAPIST'S ASSISTANT - 09/29/2024 11:30 AM PHYSIOTHERAPIST'S ASSISTANT Surgery [facility] Aides And Assistants Teacher [address] [place] [address] Marco Antonio Gunn MD Coronary Angiography 09/29/2024 8:38 AM PHYSIOTHERAPIST'S ASSISTANT - 09/29/2024 1:37 PM PHYSIOTHERAPIST'S ASSISTANT Hospital Encounter [facility] Aides And Assistants Teacher [address] [place] [address] Marco Antonio Gunn MD Cardiac Catheterization Discharge Disposition: Home or Self Care 09/26/2024 Telephone [facility] [address] [place] [address] [address] [place] [address] Bry Anne MD Preop Question from Last 3 Months Allergies Active Allergy [...] Comments Blood Pressure 103/61 09/29/2024 1:15 PM PHYSIOTHERAPIST'S ASSISTANT Pulse 80 09/29/2024 1:15 PM PHYSIOTHERAPIST'S ASSISTANT Temperature 36.1 C (96.9 F) 06/01/2023 1:26 PM CDT Respiratory Rate 26 09/29/2024 1:15 PM PHYSIOTHERAPIST'S ASSISTANT Oxygen Saturation 97% 09/29/2024 1:15 PM PHYSIOTHERAPIST'S ASSISTANT Inhaled Oxygen Concentration - - Weight 146.1 kg (322 lb 3.2 oz) 09/29/2024 9:00 AM PHYSIOTHERAPIST'S ASSISTANT Height 180.3 cm (5' 11 ) 09/29/2024 9:00 AM PHYSIOTHERAPIST'S ASSISTANT Body Mass Index 44.94 09/29/2024 9:00 AM PHYSIOTHERAPIST'S ASSISTANT Plan of Treatment Upcoming Encounters Date Type Department Care Team (Late st Contact Info) Description 08/16/2025 2:00 PM CDT Office Visit [facility] [address] [place] [address] [address] [place] [address] Bry Anne MD [address] [place] [address] [address] [place] [address] Procedures Procedure Name Priority Date/Time Associated Diagnosis Comments CARDIAC PROCEDURE ORDER 10/03/2024 6:58 PM PHYSIOTHERAPIST'S ASSISTANT CCL LEFT HEART CATH Routine 09/29/2024 1 1:08 AM PHYSIOTHERAPIST'S ASSISTANT CORONARY ANGIOGRAPHY Routine 09/29/2024 11:08 AM PHYSIOTHERAPIST'S ASSISTANT BASIC METABOLIC PANEL (CALCIUM TOTAL) Routine 09/13/2024 11:03 AM PHYSIOTHERAPIST'S ASSISTANT Abnormal stress test CBC W AUTO DIFFERENTIAL Routine 09/13/2024 11:03 AM PHYSIOTHERAPIST'S ASSISTANT Abnormal stress test from Last 3 Months Results * CARDIAC PROCEDURE ORDER (10/03/2024 6:58 PM PHYSIOTHERAPIST'S ASSISTANT) Narrative 10/03/2024 6:58 PM PHYSIOTHERAPIST'S ASSISTANT Ordered by an unspecified provider. Scanned Document CARDIAC SERVICES ORD ERABLES * CORONARY ANGIOGRAPHY, CCL LEFT HEART CATH (09/29/2024 11:08 AM PHYSIOTHERAPIST'S ASSISTANT) Anatomical Region Laterality Modality X-Ray Angiograph y Narrative 09/29/2024 11:25 AM PHYSIOTHERAPIST'S ASSISTANT Left main - short, no significant disease [...] * CBC WITH DIFFERENTIAL (09/13/2024 11:03 AM PHYSIOTHERAPIST'S ASSISTANT) WBC 6.7 3.4 - 10.8 x10E3/uL [facility] INSURANCE BILL Comment: Effective September 19, 2024 profile [id number] WBC will be made non-orderable as a [...] BLOOD SPECIMEN / Unknown 09/13/2024 11:03 AM PHYSIOTHERAPIST'S ASSISTANT 09/13/2024 Narrative [facility] INSURANCE BILL - 09/14/2024 7:13 AM PHYSIOTHERAPIST'S ASSISTANT Performed at: [address] [place] [id number] Residential Program Coordinator: Omi Monique PhD, Phone: [phone] Marco Antonio Gunn MD LAB - HEMATOLOGY ORD ERABLES [facility] INSURANCE BILL [address] [place] [address] * (ABNORMAL) BASIC METABOLIC PANEL (BMP) (09/13/2024 11:03 AM PHYSIOTHERAPIST'S ASSISTANT) Glucose 134(H) 70 - 99 mg/dL [facility] [...] BLOOD SPECIMEN / Unknown 09/13/2024 11:03 AM PHYSIOTHERAPIST'S ASSISTANT 09/13/2024 Narrative [facility] INSURANCE BILL - 09/14/2024 7:13 AM PHYSIOTHERAPIST'S ASSISTANT Performed at: 01 - [facility] [address] [place], [place] [id number] Residential Program Coordinator: Omi Monique PhD, Phone: [phone] Marco Antonio Gunn MD LAB - CHEMISTRY JUSTINE LAWSON [facility] INSURANCE BILL [address] [place] [address] from Last 3 Months Advance Directives * Full Code (Latest Code Status on File) Date Activated Date Inactivated Comments 09/29/2024 11:23 AM 09/29/2024 2:43 PM Care Teams Billboard Erector Helper Relationship Specialty Start Date End Date David Gtz MD [address] [place] [address] PCP - General 08/01/08 Bry Anne MD [address] [place] [address] Cardiology 09/30/19 Abner Mancia MD [address] [facility] [address] [place] [address] Urology 09/30/19 Donald Frank MD [address] [place] [address] Referring Physician Plastic and Reconstructive Surgery 09/30/19
--- OUTSIDE RECORDS SUMMARY | 2024-12-07 10:15 | XMS_ITS | Continuity of Care Document ---
Author Organization [facility] Address [address] [place] [address] [address] [place] [address] Phone Care Team Providers Care Tube Sorter Name Role Phone Sarkis, Bryant Unavailable Unavailable Advance Directives Directive Yes / No Effective Date File Name No Information Encounters Encounter Description Practice Location Reason(s) For Visit Diagnoses Date Provider Providers Copied on Encounter [facility], [address], [place], [place], [id number], [place] tel:[phone] SEC [facility] No Information Mar-2 0-200 6 Doisy Edward. [address] [facility] , [address], [place], [address], [place]. tel:[phone] Family History Family Member Type Diagnosis Age At Onset No Information Payers Payer name Insurance type Covered green party ID Authoriza titeresa(s) [facility] CI [id number] Social History Type Description Quantity Date Captured [...]
--- OUTSIDE RECORDS SUMMARY | 2024-12-07 10:15 | XMS_ITS | Patient Health Summary ---
Author Organization [facility] Address [address] [facility] [place] [address] Care Team Providers Care Dispatcher Electric Power Name Role Phone David Gtz MD Primary Care Provider + Lisseth Anne MD Unavailable [phone] Abner Mancia MD Unavailable Donald Frank MD Unavailable [phone] Note from [facility],non-owned Affiliates and Associated Physician Practices is amultiple site organization consisting of ambulatory clinics and hospital sitesin [place], [place], [place] and [place]. This disclosure is being madepursuant to the Care Everywhere program and may not contain all information available regarding this patient. Last updated 18.[facility] Allergies * Adhesive Sensitivity(Other) * Hydrocodone-Acetaminophen(Rash,Unknown) -Medium [...] Comments Blood Pressure 103/61 09/29/2024 1:15 PM BIT BENDER Pulse 80 09/29/2024 1:15 PM BIT BENDER Temperature 36.1 C (96.9 F) 06/01/2023 1:26 PM CDT Respiratory Rate 26 09/29/2024 1:15 PM BIT BENDER Oxygen Saturation 97% 09/29/2024 1:15 PM BIT BENDER Inhaled Oxygen Concentration - - Weight 146.1 kg (322 lb 3.2 oz) 09/29/2024 9:00 AM BIT BENDER Height 180.3 cm (5' 11 ) 09/29/2024 9:00 AM BIT BENDER Body Mass Index 44.94 09/29/2024 9:00 AM BIT BENDER Procedures * CARDIAC PROCEDURE ORDER(Performed 10/03/2024) * [...] * CARDIAC PROCEDURE ORDER (10/03/2024 6:58 PM BIT BENDER) Narrative 10/03/2024 6:58 PM BIT BENDER Ordered by an unspecified provider. Scanned Document CARDIAC SERVICES ORD ERABLES * CORONARY ANGIOGRAPHY, CCL LEFT HEART CATH (09/29/2024 11:08 AM BIT BENDER) Anatomical Region Laterality Modality X-Ray Angiograph y Narrative 09/29/2024 11:25 AM BIT BENDER Left main - short, no significant disease [...] * CBC WITH DIFFERENTIAL (09/13/2024 11:03 AM BIT BENDER) WBC 6.7 3.4 - 10.8 x10E3/uL [facility] INSURANCE BILL Comment: Effective September 19, 2024 profile [id number] WBC will be made non-orderable as a [...] BLOOD SPECIMEN / Unknown 09/13/2024 11:03 AM BIT BENDER 09/13/2024 Narrative [facility] INSURANCE BILL - 09/14/2024 7:13 AM BIT BENDER Performed at: [address] [place] [id number] Tablet Repair: Omi Monique PhD, Phone: [phone] Marco Antonio Gunn MD LAB - HEMATOLOGY ORD ERABLES [facility] INSURANCE BILL [address] [place] [address] * (ABNORMAL) BASIC METABOLIC PANEL (BMP) (09/13/2024 11:03 AM BIT BENDER) Glucose 134(H) 70 - 99 mg/dL [facility] [...] BLOOD SPECIMEN / Unknown 09/13/2024 11:03 AM BIT BENDER 09/13/2024 Narrative [facility] INSURANCE BILL - 09/14/2024 7:13 AM BIT BENDER Performed at: 01 - [facility] [address] [place], [place] [id number] Tablet Repair: Omi Monique PhD, Phone: [phone] Marco Antonio Gunn MD LAB - CHEMISTRY JUSTINE LAWSON [facility] INSURANCE BILL [address] [place] [address] * (ABNORMAL) HEMOGLOBIN A1C (EXTERNAL RESULT ENTRY) (08/31/2024) Hemoglobin A1c (EXTERNAL RESULT) 6.8(H) % OUTSIDE REFERENCE LAB Comment:[facility] up - no lab indicated (scanned) Blood BLOOD SPECIMEN / Unknown 08/31/2024 Historical Provider LAB - CHEMISTRY Sven LUO Performing Organization Address City/[facility] Co de Phone Number OUTSIDE REFERENCE LAB * NM MYOCARD PERF REST STRESS (08/25/2024 11:16 AM BIT BENDER) Anatomical Region Laterality Modality Chest Nuclear Digisoni cs 08/25/2024 9:20 AM BIT BENDER Narrative Procedure Note Rashaun Chan MD - 08/25/2024 [address] [facility]. [address] [place] [address] [facility] Myocardial Perfusion Scan Report Pat.Name: MARBIN DE LA CRUZ Pat.ID: [id number] St.Date: 08/25/2024 Refer.: Jeannine Gtz Exam Time: 9:20:00 AM Study Type:Nuclear Myocardial Perfusion Scan Weight: 326lb Age: 10 1960,64Y Sex: MALE Sonogrphr: DWAINE Martínez Reason for Study: Dyspnea, Chest pressure Procedures: Lexiscan Perfusion Scan, Gated Stress Visit ID: [id number] Risk Factors:Hypertension, Diabetes, Hypercholesterolemia Clinical Symptoms:Dyspnea, Chest [...] STRESS TEST Pharm-Lexiscan (Regadenoson) (08/25/2024 9:35 AM BIT BENDER) Anatomical Region Laterality Modality Cardiac Electrop hysiology 08/25/2024 8:30 AM BIT BENDER Narrative 08/25/2024 11:45 AM BIT BENDER Patient Info Name: Marbin De La Cruz Age: 64 years : 1960 Gender: Male Ht: 71 in Wt: 326 lb BSA: 2.79 m2 HR: 75 bpm BP: 146 / 75 mmHg Heart Rhythm: Sinus Rhythm, ST T wave abnormality, consider anterolateral ischemia Exam Date: 08/25/2024 8:30 AM Patient Status: O/P Study Site: [facility] Primary Location: [facility] EStudy Info Exam Type: STRESS TEST Indications R06.00 - Dyspnea, unspecified type Procedure(s) * Pharmacological stress test was performed. Staff Referring Physician: Lisseth Anne Ordering Provider: Lisseth Anne Attending Physician: Lisseth [...] ST/T wave changes with stress. Termination Reason: Protocol completed Heart [...] Status: O/P Study Site: [facility] Primary Location: [facility] EStudy Info Exam Type: STRESS TEST Indications R06.00 - Dyspnea, unspecified type Procedure(s) * Pharmacological stress test was performed. Staff Referring Physician: Lisseth Anne Ordering Provider: Lisseth Anne Attending Physician: Lisseth [...] ECHO COMPLETE (08/06/2023 2:35 PM CDT) BSA 2.1900863 m2 [facility] CV FUJ I PACS LVOT [...] LA vol BP 86.325 mL [facility] CV [facility] I PACS LVOT pk jomar 1.23 m/s [...] PACS TV S' jomar 11.963 [facility] CV [facility] I PACS TAPSE 2.328 1.7 cm [facility] CV [facility] I PACS AV mn grad 5 mmHg [facility] CV FU JI PACS AV pk grad 10 mmHg [facility] CV FU JI PACS AV mn jomar 1.03 m/s [facility] CV [facility] I PACS AV pk jomar 1.55 m/s [...] Modality Ultrasound Narrative 08/06/2023 4:42 PM CDT Left Ventricle: Left ventricle size is normal. Mildly increased wall thickness. Probably normal systolic function--at least 55%. Contrast not used. Unable to assess wall motion. No gross wall motion abnormalities noted but contrast not used. Normal diastolic function. Right Ventricle: Right ventricle size is normal. Normal systolic function. Tricuspid Valve: No regurgitation. Unable to estimate the pulmonary [...] Procedure Note Christina Dorantes, DO - 08/06/2023 Left Ventricle: Left ventricle size is normal. Mildly increased wallthickness. Probably normal systolic function--at least 55%. Contrast notused. Unable to assess wall motion. No gross wall motion abnormalitiesnoted but contrast not used. Normal diastolic function. Right Ventricle: Right ventricle size is normal. Normal systolicfunction. Tricuspid Valve: No regurgitation. Unable to estimate the pulmonaryartery [...] (Bezet) 394 ms [facility] MUSE Calculated P [place] 22 degrees [facility] MUSE Calculated R [place] 46 degrees [facility] MUSE Calculated T [place] 64 degrees [facility] MUSE Interpretation EKG NORMAL SINUS RHYTHM NORMAL ECG Confirmed by MD Dayana, Lisseth ([id number]) on 06/03/2023 7:24:15 AM [facility] MUSE 06/01/2023 12:5 8 PM CDT 06/03/2023 7:24 AM CDT Lisseth Anne MD ECG ORDERABLES [facility] MUSE * ECHOCARDIOGRAM STRESS Walking Stress ECHO (10/14/2019 9:32 AM BIT BENDER) 10/14/2019 9:32 AM BIT BENDER Narrative [facility] CARDIOLOGY - 10/15/2019 12:54 PM BIT BENDER [address] [address] Exercise Stress Echocardiography Name: MARBIN DE LA CRUZ MR #: [id number] Study date: 14-Oct-2019 : 1960 Age: 59 years Gender: Male Height: 71 in Weight: 327 lb BSA: 2.6 m Allergies: HYDROCODONE-ACETAMINOPHEN Livestock Judging Coach: Dank Nelson RDCS Referring Physician: Lisseth Anne MD Reading Physician: Nikki Choudhary MD Performing Nurse Practitioner: KATHIA Wall- Nurse: Velma Otoole RN CLINICAL QUESTION: Shortness of breath, [...] peak heart rate and blood [place] [address]. There was no chest pain during stress. [...] Procedure Note Nikki Choudhary MD - 10/15/[address] [address] Exercise Stress Echocardiography Name: MARBIN DE LA CRUZ MR #: [id number] Study date: 14-Oct-2019 : 1960 Age: 59 years Gender: Male Height: 71 in Weight: 327 lb BSA: 2.6 m Allergies: HYDROCODONE-ACETAMINOPHEN Livestock Judging Coach: Dank Nelson RDCS Referring Physician: Lisseth Anne MD Reading Physician: Nikki Choudhary MD Performing Nurse Practitioner: KATHIA Wall- Nurse: Velma Otoole RN CLINICAL QUESTION: Shortness of breath, [...] peak heart rate and blood pressure was [address]. There was no chest pain during stress. [...] 15-Oct-2019 12:54:38 Lisseth Anne MD ECHO ORDERABLES [facility] [address] [place] [address] * ECG STRESS TRACING (10/14/2019 9:27 AM BIT BENDER) Pathologist [facility] Stress Test Summary For full formatted report, please see the report link in the order. Acquisition Time: 2019-10-14 09:27:08 Total Exercise Time: 00:04:23 Test Indications: Medications: Protocol: VENU Max HR: 134 BPM 83% of Pred: 160 BPM Max BP: 195/089 mmHG Max [...] BP increased appropriately with exercise. No exercise-induced chest pain. Slight ST depression horizontal pattern in the inferolateral leads which is suggestive for ischemia. Echo images showed no stress-induced all motion abnormalites per Dr Choudhary however diagnostic sensitivity was decreaed by submaximal stress. Confirmed by Nikki Choudhary ([id number]) on 10/16/2019 7:25:17 PM Also confirmed by Nikki Choudhary ([id number]), proposal editor Velma Otoole ([id number]) on 10/31/2019 4:05:38 PM Attending Physician: Referred By: LISSETH ANNE Overread By: Nikki Choudhary [facility] STRESS 10/14/2019 9:27 AM BIT BENDER 10/31/2019 4:05 PM BIT BENDER Lisseth Anne MD CARDIAC SERVICES ORD ERABLES [facility] STRESS * LAB HISTORICAL RESULTS-ONBASE (02/22/2008) Only the most recent of12 resultswithin the time period is included. 02/22/2008 Historical Provider LAB - CHEMISTRY O RDERABLES [facility] [address] Care Teams Dispatcher Electric Power Relationship Specialty Start Date End Date David Gtz MD [address] [facility] [address] [place] [address] PCP - General 08/01/08 Lisseth Anne MD [address] [facility] [address] [place] [address] Cardiology 09/30/19 Abner Mancia MD [address] [facility] [address] [place] [address] Urology 09/30/19 Donald Frank MD [address] [place] [address] Referring Physician Plastic and Reconstructive Surgery 09/30/19
== END 2024-12-07 10:02 | disposition home or self-care (01) ==
PROVIDERS: PCP Family Medicine Adolescent Medicine; Visit Provider Surgery
DX: K57.20 Diverticulitis of large intestine with perforation and abscess without bleeding (principal)
CPT/HCPCS: 74176

== ENCOUNTER 2024-12-07 19:03 | Inpatient (IN) | payer MEDICARE, SELFPAY ==
--- OUTSIDE RECORDS SUMMARY | 2024-12-07 18:45 | XMS_ITS | Clinical Summary ---
Author Organization [facility] Address [address], [address] [address] Phone Care Team Providers Care Vulnerability Researcher Name Role Phone David Gtz MD Primary Care Provider + Bry Marks DO Unavailable [phone] Allergies Active Allergy Reactions Criticality Noted [...] Take 25 mg by mouth daily. Active Lowpoint-3 Fatty Acids (FISH OIL PO) Take by [...] Most Recently Relevant to Health Maintenance Insurance [facility] Care Teams Vulnerability Researcher Relationship Specialty Start Date End Date David Gtz MD [address] [place] [address] PCP - General Family Medicine 07/11/16 Bry Marks DO [address] [place] [address] Gastroenterology 07/11/16
--- OUTSIDE RECORDS SUMMARY | 2024-12-07 18:45 | XMS_ITS | Clinical Summary ---
Author Organization [facility] Medical [facility] 2 Address [address] [place] [address] Care Team Providers Care Primary Care Nurse Name Role Phone David Gtz MD Primary [...] (10/20/2019): Added automatically from request for surgery [id number] Abdominal pannus 10/20/2019 Overview (10/21/2019): Added automatically from request for surgery [id number] Hemangioma of skin 03/31/2017 Skin benign neoplasm [...] on file Legal Sex Male 4:44 AM GRANT SPECIALIST Gender Identity Not on file Sexual Orientation Not on file Obstetrics History Last Filed Vital Signs Vital Sign Reading Time Taken Comments Blood Pressure 132/62 09/28/2021 1:35 PM [employer]IST Pulse 76 09/28/2021 1:35 PM GRANT SPECIALIST Temperature 36.8 C (98.2 F) 09/28/2021 1:35 PM GRANT SPECIALIST Respiratory Rate 18 09/28/2021 1:35 PM GRANT SPECIALIST Oxygen Saturation 97% 09/28/2021 3:07 PM GRANT SPECIALIST Inhaled Oxygen Concentration - - Weight 144.8 kg (319 lb 4.8 oz) 09/28/2021 1:35 PM GRANT SPECIALIST Height 180.3 cm (5' 11 ) 09/28/2021 1:35 PM GRANT SPECIALIST Body Mass Index 44.53 09/28/2021 1:35 PM GRANT SPECIALIST Plan of Treatment Not on file Insurance [employer] [place] [employer] [place] [employer] [place] Advance Directives For more information, please contact: [phone] Documents on File Type Date Recorded Patient Tomography Technologist Expl anation ADVANCE DIRECTIVE 11/25/2019 1:11 PM Power of Regulatory Compliance Officer-Medical * Full Code (Latest Code Status on File) Date Activated Date Inactivated Comments 12/06/2019 4:28 PM 12/11/2019 6:08 PM Care Teams Primary Care Nurse Relationship Specialty Start Date End Date David Gtz MD PCP - General Family Medicine 02/09/19
--- OUTSIDE RECORDS SUMMARY | 2024-12-07 18:46 | XMS_ITS | Patient Health Summary ---
Author Organization [facility] Address [address] [facility] [place] [address] Care Team Providers Care Emissions Testing Technician Name Role Phone David Gtz MD Primary Care Provider + Lisseth Anne MD Unavailable [phone] Abner Mancia MD Unavailable Donald Frank MD Unavailable [phone] Note from [facility],non-owned Affiliates and Associated Physician Practices is amultiple site organization consisting of ambulatory clinics and hospital sitesin [place], [place], [place] and [place]. This disclosure is being madepursuant to the Care Everywhere program and may not contain all information available regarding this patient. Last updated 18.[facility] Allergies * Adhesive Sensitivity(Other) * Hydrocodone-Acetaminophen(Rash,Unknown) [...] Comments Blood Pressure 103/61 09/29/2024 1:15 PM REVENUE INVESTIGATOR Pulse 80 09/29/2024 1:15 PM REVENUE INVESTIGATOR Temperature 36.1 C (96.9 F) 06/01/2023 1:26 PM CDT Respiratory Rate 26 09/29/2024 1:15 PM REVENUE INVESTIGATOR Oxygen Saturation 97% 09/29/2024 1:15 PM REVENUE INVESTIGATOR Inhaled Oxygen Concentration - - Weight 146.1 kg (322 lb 3.2 oz) 09/29/2024 9:00 AM REVENUE INVESTIGATOR Height 180.3 cm (5' 11 ) 09/29/2024 9:00 AM REVENUE INVESTIGATOR Body Mass Index 44.94 09/29/2024 9:00 AM REVENUE INVESTIGATOR Procedures * CARDIAC PROCEDURE ORDER(Performed 10/03/2024) * [...] * CARDIAC PROCEDURE ORDER (10/03/2024 6:58 PM REVENUE INVESTIGATOR) Narrative 10/03/2024 6:58 PM REVENUE INVESTIGATOR Ordered by an unspecified provider. Scanned Document CARDIAC SERVICES ORD ERABLES * CORONARY ANGIOGRAPHY, CCL LEFT HEART CATH (09/29/2024 11:08 AM REVENUE INVESTIGATOR) Anatomical Region Laterality Modality X-Ray Angiograph y Narrative 09/29/2024 11:25 AM REVENUE INVESTIGATOR Left main - short, no significant disease [...] * CBC WITH DIFFERENTIAL (09/13/2024 11:03 AM REVENUE INVESTIGATOR) WBC 6.7 3.4 - 10.8 x10E3/uL [facility] INSURANCE BILL Comment: Effective September 19, 2024 profile [id number] WBC will be made non-orderable as a [...] BLOOD SPECIMEN / Unknown 09/13/2024 11:03 AM REVENUE INVESTIGATOR 09/13/2024 Narrative [facility] INSURANCE BILL - 09/14/2024 7:13 AM REVENUE INVESTIGATOR Performed at: [address] [place] [id number] Repair Miller: Omi Monique PhD, Phone: [phone] Marco Antonio Gunn MD LAB - HEMATOLOGY ORD ERABLES [facility] INSURANCE BILL [address] [place] [address] * (ABNORMAL) BASIC METABOLIC PANEL (BMP) (09/13/2024 11:03 AM REVENUE INVESTIGATOR) Glucose 134(H) 70 - 99 mg/dL [facility] [...] BLOOD SPECIMEN / Unknown 09/13/2024 11:03 AM REVENUE INVESTIGATOR 09/13/2024 Narrative [facility] INSURANCE BILL - 09/14/2024 7:13 AM REVENUE INVESTIGATOR Performed at: 01 - [facility] [address] [place], [place] [id number] Repair Miller: Omi Monique PhD, Phone: [phone] Marco Antonio Gunn MD LAB - CHEMISTRY JUSTINE LAWSON [facility] INSURANCE BILL [address] [place] [address] * (ABNORMAL) HEMOGLOBIN A1C (EXTERNAL RESULT ENTRY) (08/31/2024) Hemoglobin A1c (EXTERNAL RESULT) 6.8(H) % OUTSIDE REFERENCE LAB Comment:[facility] up - no lab indicated (scanned) Blood BLOOD SPECIMEN / Unknown 08/31/2024 Historical Provider LAB - CHEMISTRY Sven LUO Performing Organization Address City/[facility] Co de Phone Number OUTSIDE REFERENCE LAB * NM MYOCARD PERF REST STRESS (08/25/2024 11:16 AM REVENUE INVESTIGATOR) Anatomical Region Laterality Modality Chest Nuclear Digisoni cs 08/25/2024 9:20 AM REVENUE INVESTIGATOR Narrative Procedure Note Rashaun Chna MD - 08/25/2024 [address] [facility] [place] [address] [facility] Myocardial Perfusion Scan Report Pat.Name: MARBIN DE LA CURZ Pat.ID: [id number] St.Date: 08/25/2024 Refer.: Jeannine Gtz Exam Time: 9:20:00 AM Study Type:Nuclear Myocardial Perfusion Scan Weight: 326lb Age: 10 1960,64Y Sex: MALE Sonogrphr: DWAINE Martínez Reason for Study: Dyspnea, Chest pressure Procedures: Lexiscan Perfusion Scan, Gated Stress Visit ID: [id number] Risk Factors:Hypertension, Diabetes, Hypercholesterolemia Clinical Symptoms:Dyspnea, Chest [...] STRESS TEST Pharm-Lexiscan (Regadenoson) (08/25/2024 9:35 AM REVENUE INVESTIGATOR) Anatomical Region Laterality Modality Cardiac Electrop hysiology 08/25/2024 8:30 AM REVENUE INVESTIGATOR Narrative 08/25/2024 11:45 AM REVENUE INVESTIGATOR Patient Info Name: Marbin De La Cruz Age: 64 years : 1960 Gender: Male Ht: 71 in Wt: 326 lb BSA: 2.79 m2 HR: 75 bpm BP: 146 / 75 mmHg Heart Rhythm: Sinus Rhythm, ST T wave abnormality, consider anterolateral ischemia Exam Date: 08/25/2024 8:30 AM Patient Status: O/P Study Site: [facility] Primary Location: [facility] EStudy Info Exam Type: STRESS TEST Indications R06.00 - Dyspnea, unspecified type Procedure(s) * Pharmacological stress test was performed. Staff Referring Physician: Lisseth Anne Ordering Provider: Lisseth Anne Attending Physician: Lisseth Anne Nurse: Ernst Price Exercise Physician: Rashaun Cahn Stress Staff: Ernst Mcintyre Summary * Indication [...] 8:30 AM Patient Status: O/P Study Site: [facility] Primary Location: [facility] EStudy Info Exam Type: STRESS TEST [...] ECHO COMPLETE (08/06/2023 2:35 PM CDT) BSA 2.6522559 m2 [facility] I PACS LVOT [...] LA vol BP 86.325 mL [facility] I PACS LVOT pk jomar 1.23 m/s [...] PACS TV S' jomar 11.963 [facility] I PACS TAPSE 2.328 1.7 cm [facility] I PACS AV mn grad 5 mmHg [facility] CV FU JI PACS AV pk grad 10 mmHg [facility] FU JI PACS AV mn jomar 1.03 m/s [facility] I PACS AV pk jomar 1.55 m/s [...] (Bezet) 394 ms [facility] MUSE Calculated P [place] 22 degrees [facility] MUSE Calculated R [place] 46 degrees [facility] MUSE Calculated T [place] 64 degrees [facility] MUSE Interpretation EKG NORMAL SINUS RHYTHM NORMAL ECG Confirmed by MD Dayana, Lisseth ([id number]) on 06/03/2023 7:24:15 AM [facility] MUSE 06/01/2023 12:5 8 PM CDT 06/03/2023 7:24 AM CDT Lisseth Anne MD ECG ORDERABLES [facility] MUSE * ECHOCARDIOGRAM STRESS Walking Stress ECHO (10/14/2019 9:32 AM REVENUE INVESTIGATOR) 10/14/2019 9:32 AM REVENUE INVESTIGATOR Narrative [facility] CARDIOLOGY - 10/15/2019 12:54 PM REVENUE INVESTIGATOR [address] [address] Exercise Stress Echocardiography Name: MARBIN DE LA CRUZ MR #: [id number] Study date: 14-Oct-2019 : 1960 Age: 59 years Gender: Male Height: 71 in Weight: 327 lb BSA: 2.6 m Allergies: HYDROCODONE-ACETAMINOPHEN Metal Hanging Helper: Dank Nelson RDCS Referring Physician: Lisseth Anne [...] peak heart rate and blood pressure was [address]. There was no chest pain during stress. [...] Procedure Note Nikki Choudhary MD - 10/15/[address] [address] Exercise Stress Echocardiography Name: MARBIN DE LA CRUZ MR #: [id number] Study date: 14-Oct-2019 : 1960 Age: 59 years Gender: Male Height: 71 in Weight: 327 lb BSA: 2.6 m Allergies: HYDROCODONE-ACETAMINOPHEN Metal Hanging Helper: Dank Nelson RDCS Referring Physician: Lisseth Anne [...] peak heart rate and blood pressure was [address]. There was no chest pain during stress. [...] A4C: 65.7 ml Prepared and signed by Nkiki Choudhary MD Signed 15-Oct-2019 12:54:38 Lisseth Anne MD ECHO ORDERABLES [facility] [address] [place] [address] * ECG STRESS TRACING (10/14/2019 9:27 AM REVENUE INVESTIGATOR) Pathologist [facility] Stress Test Summary For full formatted report, [...] by submaximal stress. Confirmed by Nikki Choudhary ([id number]) on 10/16/2019 7:25:17 PM Also confirmed by Nikki Choudhary ([id number]), editor greeting card Velma Otoole ([id number]) on 10/31/2019 4:05:38 PM Attending Physician: Referred By: LISSETH ANNE Overread By: Nikki Choudhary [facility] STRESS 10/14/2019 9:27 AM REVENUE INVESTIGATOR 10/31/2019 4:05 PM REVENUE INVESTIGATOR Lisseth Anne MD CARDIAC SERVICES ORD ERABLES [facility] STRESS * LAB HISTORICAL RESULTS-ONBASE (02/22/2008) Only the most recent of12 resultswithin the time period is included. 02/22/2008 Historical Provider LAB - CHEMISTRY O RDERABLES [facility] [address] Care Teams Emissions Testing Technician Relationship Specialty Start Date End Date David Gtz MD [address] [facility] [address] [place] [address] PCP - General 08/01/08 Lisseth Anne MD [address] [facility] [address] [place] [address] Cardiology 09/30/19 Abner Mancia MD [address] [facility] [address] [place] [address] Urology 09/30/19 Donald Frank MD [address] [place] [address] Referring Physician Plastic and Reconstructive Surgery 09/30/19
--- OUTSIDE RECORDS SUMMARY | 2024-12-07 18:46 | XMS_ITS | Clinical Summary ---
Author Organization [facility] Address [address] [place] [address] Care Team Providers Care Web Site Specialist Name Role Phone David Gtz MD Primary Care Provider + Bry Anne MD Unavailable Abner Mancia MD Unavailable Donald Frank MD Unavailable [phone] Source Comments [facility],non-owned Affiliates and Associated Physician Practices is amultiple site organization consisting of ambulatory clinics and hospital sitesin [place], [place], [place] and [place]. This disclosure is being madepursuant to the Care Everywhere program and may not contain all information available regarding this patient. Last updated 18.[facility] Allergies Active Allergy Reactions Criticality Noted [...] Department Care Team Description 09/29/2024 10:00 AM PACKING ROOM INSPECTOR - 09/29/2024 11:30 AM [facility] [[email or web address] Surgery [facility] - Cardiac Well Logging Captain [address] [place] [address] Marco Antonio Gunn MD Coronary Angiography 09/29/2024 8:38 AM PACKING ROOM INSPECTOR - 09/29/2024 1:37 PM [facility] [[email or web address]] Hospital Encounter [facility] - Cardiac Well Logging Captain [address] [place] [address] Marco Antonio Gunn MD Cardiac Catheterization Discharge Disposition: Home or Self Care 09/29/2024 Travel 09/26/2024 Telephone [facility] Heart & Vascular Care [address] [place] [address] [address] [place] [address] Bry Anne MD Preop Question from Last [...] Comments Blood Pressure 103/61 09/29/2024 1:15 PM PACKING ROOM INSPECTOR Pulse 80 09/29/2024 1:15 PM PACKING ROOM INSPECTOR Temperature 36.1 C (96.9 F) 06/01/2023 1:26 PM CDT Respiratory Rate 26 09/29/2024 1:15 PM PACKING ROOM INSPECTOR Oxygen Saturation 97% 09/29/2024 1:15 PM PACKING ROOM INSPECTOR Inhaled Oxygen Concentration - - Weight 146.1 kg (322 lb 3.2 oz) 09/29/2024 9:00 AM PACKING ROOM INSPECTOR Height 180.3 cm (5' 11 ) 09/29/2024 9:00 AM PACKING ROOM INSPECTOR Body Mass Index 44.94 09/29/2024 9:00 AM PACKING ROOM INSPECTOR Plan of Treatment Upcoming Encounters Date Type Department Care Team (Late st Contact Info) Description 08/16/2025 2:00 PM CDT Office Visit [facility] Heart & Vascular Care [address] [place] [address] [address] [place], [place] [id number] Bry Anne MD [address] [place] [address] [address] [place] [address] Health Maintenance Due Date Last [...] Comments CARDIAC PROCEDURE ORDER 10/03/2024 6:58 PM PACKING ROOM INSPECTOR CCL LEFT HEART CATH Routine 09/29/2024 1 1:08 AM PACKING ROOM INSPECTOR CORONARY ANGIOGRAPHY Routine 09/29/2024 11:08 AM PACKING ROOM INSPECTOR BASIC METABOLIC PANEL (CALCIUM TOTAL) Routine 09/13/2024 11:03 AM PACKING ROOM INSPECTOR Abnormal stress test CBC W AUTO DIFFERENTIAL Routine 09/13/2024 11:03 AM PACKING ROOM INSPECTOR Abnormal stress test from Last 3 Months Results * CARDIAC PROCEDURE ORDER (10/03/2024 6:58 PM PACKING ROOM INSPECTOR) Narrative 10/03/2024 6:58 PM PACKING ROOM INSPECTOR Ordered by an unspecified provider. Scanned Document CARDIAC SERVICES ORD ERABLES * CORONARY ANGIOGRAPHY, CCL LEFT HEART CATH (09/29/2024 11:08 AM PACKING ROOM INSPECTOR) Anatomical Region Laterality Modality X-Ray Angiograph y Narrative 09/29/2024 11:25 AM PACKING ROOM INSPECTOR Left main - short, no significant disease [...] * CBC WITH DIFFERENTIAL (09/13/2024 11:03 AM PACKING ROOM INSPECTOR) WBC 6.7 3.4 - 10.8 x10E3/uL [facility] INSURANCE BILL Comment: Effective September 19, 2024 profile [id number] WBC will be made non-orderable as a [...] BLOOD SPECIMEN / Unknown 09/13/2024 11:03 AM PACKING ROOM INSPECTOR 09/13/2024 Narrative [facility] INSURANCE BILL - 09/14/2024 7:13 AM PACKING ROOM INSPECTOR Performed at: 01 - [facility] [address] [id number] Suspect Artist Supervisor: Omi Monique PhD, Phone: [phone] Marco Antonio Gunn MD LAB - HEMATOLOGY ORD ERABLES [facility] INSURANCE BILL [address] [place] [address] * (ABNORMAL) BASIC METABOLIC PANEL (BMP) (09/13/2024 11:03 AM PACKING ROOM INSPECTOR) Glucose 134(H) 70 - 99 mg/dL [facility] [...] BLOOD SPECIMEN / Unknown 09/13/2024 11:03 AM PACKING ROOM INSPECTOR 09/13/2024 Narrative [facility] INSURANCE BILL - 09/14/2024 7:13 AM PACKING ROOM INSPECTOR Performed at: 01 - [facility] [address] [id number] Suspect Artist Supervisor: Omi Monique PhD, Phone: [phone] Marco Antonio Gunn MD LAB - CHEMISTRY JUSTINE LAWSON Performing Organization Address City/[facility]/ZIP Co de Phone Number [facility] INSURANCE BILL [address] [place] [address] from Last 3 Months Advance Directives * Full Code (Latest Code Status on File) Date Activated Date Inactivated Comments 09/29/2024 11:23 AM 09/29/2024 2:43 PM Care Teams Web Site Specialist Relationship Specialty Start Date End Date David Gtz MD [address] [facility] [address] [place], [place] [id number] PCP - General 08/01/08 Bry Anne MD [address] [place] [address] Cardiology 09/30/19 Abner Mancia MD [address] [place] [address] Urology 09/30/19 Donald Frank MD [address] [place] [address] Referring Physician Plastic and Reconstructive Surgery 09/30/19
--- OUTSIDE RECORDS SUMMARY | 2024-12-07 18:46 | XMS_ITS | Referral Summary ---
Author Organization [facility] Medical [facility] 2 Address [address] [place] [address] Care Team Providers Care Engine Mechanic Name Role Phone David Gtz MD Primary [...] (10/20/2019): Added automatically from request for surgery [id number] Abdominal pannus 10/20/2019 Overview (10/21/2019): Added automatically from request for surgery [id number] Hemangioma of skin 03/31/2017 Skin benign neoplasm [...] on file Legal Sex Male 4:44 AM COMMUNITY RELATIONS ASSISTANT Gender Identity Not on file Sexual Orientation Not on file Last Filed Vital Signs Vital Sign Reading Time Taken Comments Blood Pressure 132/62 09/28/2021 1:35 PM COMMUNITY RELATIONS ASSISTANT Pulse 76 09/28/2021 1:35 PM COMMUNITY RELATIONS ASSISTANT Temperature 36.8 C (98.2 F) 09/28/2021 1:35 PM COMMUNITY RELATIONS ASSISTANT Respiratory Rate 18 09/28/2021 1:35 PM COMMUNITY RELATIONS ASSISTANT Oxygen Saturation 97% 09/28/2021 3:07 PM COMMUNITY RELATIONS ASSISTANT Inhaled Oxygen Concentration - - Weight 144.8 kg (319 lb 4.8 oz) 09/28/2021 1:35 PM COMMUNITY RELATIONS ASSISTANT Height 180.3 cm (5' 11 ) 09/28/2021 1:35 PM COMMUNITY RELATIONS ASSISTANT Body Mass Index 44.53 09/28/2021 1:35 PM COMMUNITY RELATIONS ASSISTANT Plan of Treatment Not on file Insurance [facility] [employer] [place] [employer] [place] Advance Directives For more information, please contact: [phone] Documents on File Type Date Recorded Patient Compositor Apprentice Expl anation ADVANCE DIRECTIVE 11/25/2019 1:11 PM Power of Boiler Reliner-Medical * Full Code (Latest Code Status on File) Date Activated Date Inactivated Comments 12/06/2019 4:28 PM 12/11/2019 6:08 PM Care Teams Engine Mechanic Relationship Specialty Start Date End Date David Gtz MD PCP - General Family Medicine 02/09/19
--- OUTSIDE RECORDS SUMMARY | 2024-12-07 18:46 | XMS_ITS | Referral Summary ---
Author Organization [facility] Address [address] [place] [address] Care Team Providers Care Tire Setter Name Role Phone David Gtz MD Primary Care Provider + Bry Anne MD Unavailable Abner Mancia MD Unavailable Donald Frank MD Unavailable [phone] Source Comments [facility],non-owned Affiliates and Associated Physician Practices is amultiple site organization consisting of ambulatory clinics and hospital sitesin [place], [place], [place] and [place]. This disclosure is being madepursuant to the Care Everywhere program and may not contain all information available regarding this patient. Last updated 18.[facility] Encounters Date Type Department Care Team Description 09/29/2024 Travel 09/29/2024 10:00 AM AUTO HAULER - 09/29/2024 11:30 AM AUTO HAULER Surgery [facility] - Cardiac Hoist Cylinder Loader [address] [place] [address] Marco Antonio Gunn MD Coronary Angiography 09/29/2024 8:38 AM AUTO HAULER - 09/29/2024 1:37 PM AUTO HAULER Hospital Encounter [facility] - Cardiac Hoist Cylinder Loader [address] [place] [address] Marco Antonio Gunn MD Cardiac Catheterization Discharge Disposition: Home or Self Care 09/26/2024 Telephone [facility] [address] [place] [address] [address] [place] [address] Bry Anne MD Preop Question from Last [...] Comments Blood Pressure 103/61 09/29/2024 1:15 PM AUTO HAULER Pulse 80 09/29/2024 1:15 PM AUTO HAULER Temperature 36.1 C (96.9 F) 06/01/2023 1:26 PM CDT Respiratory Rate 26 09/29/2024 1:15 PM AUTO HAULER Oxygen Saturation 97% 09/29/2024 1:15 PM AUTO HAULER Inhaled Oxygen Concentration - - Weight 146.1 kg (322 lb 3.2 oz) 09/29/2024 9:00 AM AUTO HAULER Height 180.3 cm (5' 11 ) 09/29/2024 9:00 AM AUTO HAULER Body Mass Index 44.94 09/29/2024 9:00 AM AUTO HAULER Plan of Treatment Upcoming Encounters Date Type Department Care Team (Late st Contact Info) Description 08/16/2025 2:00 PM CDT Office Visit [facility] [address] [place] [address] [address] [place] [address] Bry Anne MD [address] [place] [address] [address] [place] [address] Procedures Procedure Name Priority Date/Time Associated Diagnosis Comments CARDIAC PROCEDURE ORDER 10/03/2024 6:58 PM AUTO HAULER CCL LEFT HEART CATH Routine 09/29/2024 1 1:08 AM AUTO HAULER CORONARY ANGIOGRAPHY Routine 09/29/2024 11:08 AM AUTO HAULER BASIC METABOLIC PANEL (CALCIUM TOTAL) Routine 09/13/2024 11:03 AM AUTO HAULER Abnormal stress test CBC W AUTO DIFFERENTIAL Routine 09/13/2024 11:03 AM AUTO HAULER Abnormal stress test from Last 3 Months Results * CARDIAC PROCEDURE ORDER (10/03/2024 6:58 PM AUTO HAULER) Narrative 10/03/2024 6:58 PM AUTO HAULER Ordered by an unspecified provider. Scanned Document CARDIAC SERVICES ORD ERABLES * CORONARY ANGIOGRAPHY, CCL LEFT HEART CATH (09/29/2024 11:08 AM AUTO HAULER) Anatomical Region Laterality Modality X-Ray Angiograph y Narrative 09/29/2024 11:25 AM AUTO HAULER Left main - short, no significant disease [...] * CBC WITH DIFFERENTIAL (09/13/2024 11:03 AM AUTO HAULER) WBC 6.7 3.4 - 10.8 x10E3/uL [facility] INSURANCE BILL Comment: Effective September 19, 2024 profile [id number] WBC will be made non-orderable as a [...] BLOOD SPECIMEN / Unknown 09/13/2024 11:03 AM AUTO HAULER 09/13/2024 Narrative [facility] INSURANCE BILL - 09/14/2024 7:13 AM AUTO HAULER Performed at: [address] [place] [id number] Plant Equipment Engineer: Omi Monique PhD, Phone: [phone] Marco Antonio Gunn MD LAB - HEMATOLOGY ORD ERABLES [facility] INSURANCE BILL [address] [place] [address] * (ABNORMAL) BASIC METABOLIC PANEL (BMP) (09/13/2024 11:03 AM AUTO HAULER) Glucose 134(H) 70 - 99 mg/dL [facility] [...] BLOOD SPECIMEN / Unknown 09/13/2024 11:03 AM AUTO HAULER 09/13/2024 Narrative [facility] INSURANCE BILL - 09/14/2024 7:13 AM AUTO HAULER Performed at: 01 - [facility] [address] [place], [place] [id number] Plant Equipment Engineer: Omi Monique PhD, Phone: [phone] Marco Antonio Gunn MD LAB - CHEMISTRY JUSTINE LAWSON [facility] INSURANCE BILL [address] [place] [address] from Last 3 Months Advance Directives * Full Code (Latest Code Status on File) Date Activated Date Inactivated Comments 09/29/2024 11:23 AM 09/29/2024 2:43 PM Care Teams Tire Setter Relationship Specialty Start Date End Date David Gtz MD [address] [place] [address] PCP - General 08/01/08 Bry Anne MD [address] [place] [address] Cardiology 09/30/19 Abner Mancia MD [address] [facility] [address] [place] [address] Urology 09/30/19 Donald Frank MD [address] [place] [address] Referring Physician Plastic and Reconstructive Surgery 09/30/19
--- OUTSIDE RECORDS SUMMARY | 2024-12-07 18:46 | XMS_ITS | Continuity of Care Document ---
Author Organization [facility] Address [address] [place] [address] [address] [place] [address] Phone Care Team Providers Care Senior Procurement Specialist Name Role Phone Sarkis, Bryant Unavailable Unavailable Advance Directives Directive Yes / No Effective Date File Name No Information Encounters Encounter Description Practice Location Reason(s) For Visit Diagnoses Date Provider Providers Copied on Encounter [facility], [address], [place], [place], [id number], [place] tel:[phone] SEC [facility] No Information Mar-2 0-200 6 Doisy Edward. [address] [facility] , [address], [place], [address], [place]. tel:[phone] Family History Family Member Type Diagnosis Age At Onset No Information Payers Payer name Insurance type Covered alliance party ID Authoriza titeresa(s) [facility] CI [id number] Social History Type Description Quantity Date Captured [...]
[2024-12-07 18:47] VITALS: BMI 42.5
--- NOTE | 2024-12-07 18:47 | ADMGEN ---
This patient, Marbin Anderson, was admitted to Medical Room 342-01. Patient/family oriented to hospital policies and general routines including ID bracelet, bed and alarms, visiting hours, pain management, procedures, bathroom and other care routines, personal items, smoking policy, room service/diet, and visiting hours. Information on how to activate the Rapid Response Team has been discussed. Patient/Family are encouraged to report perceived risks to care and to ask questions if they do not understand what they are told or what they should do.
--- OUTSIDE RECORDS SUMMARY | 2024-12-07 19:12 | XMS_ITS | Clinical Summary ---
Author Organization [facility] Medical [facility] [place] [address] Address [address] [place] [address] Care Team Providers Care Private Eye Name Role Phone David Gtz MD Primary [...] (10/20/2019): Added automatically from request for surgery [id number] Abdominal pannus 10/20/2019 Overview (10/21/2019): Added automatically from request for surgery [id number] Hemangioma of skin 03/31/2017 Skin benign neoplasm [...] on file Legal Sex Male 4:44 AM ELECTRICIAN MACHINE SHOP Gender Identity Not on file Sexual Orientation Not on file Obstetrics History Last Filed Vital Signs Vital Sign Reading Time Taken Comments Blood Pressure 132/62 09/28/2021 1:35 PM ELECTRICIAN MACHINE SHOP Pulse 76 09/28/2021 1:35 PM ELECTRICIAN MACHINE SHOP Temperature 36.8 C (98.2 F) 09/28/2021 1:35 PM ELECTRICIAN MACHINE SHOP Respiratory Rate 18 09/28/2021 1:35 PM ELECTRICIAN MACHINE SHOP Oxygen Saturation 97% 09/28/2021 3:07 PM ELECTRICIAN MACHINE SHOP Inhaled Oxygen Concentration - - Weight 144.8 kg (319 lb 4.8 oz) 09/28/2021 1:35 PM ELECTRICIAN MACHINE SHOP Height 180.3 cm (5' 11 ) 09/28/2021 1:35 PM ELECTRICIAN MACHINE SHOP Body Mass Index 44.53 09/28/2021 1:35 PM ELECTRICIAN MACHINE SHOP Plan of Treatment Not on file Insurance [employer] CHOICE OR [employer] CHOICE OR [employer] CHOICE OR Advance Directives For more information, please contact: [phone] Documents on File Type Date Recorded Patient Protective Service Specialist Expl anation ADVANCE DIRECTIVE 11/25/2019 1:11 PM Power of Classroom Aide-Medical * Full Code (Latest Code Status on File) Date Activated Date Inactivated Comments 12/06/2019 4:28 PM 12/11/2019 6:08 PM Care Teams Private Eye Relationship Specialty Start Date End Date David Gtz MD PCP - General Family Medicine 02/09/19
--- OUTSIDE RECORDS SUMMARY | 2024-12-07 19:12 | XMS_ITS | Referral Summary ---
Author Organization [facility] Address [address] [place] [address] Care Team Providers Care Treasury Agent Name Role Phone David Gtz MD Primary Care Provider + Bry Anne MD Unavailable Abner Mancia MD Unavailable Donald Frank MD Unavailable [phone] Source Comments [facility],non-owned Affiliates and Associated Physician Practices is amultiple site organization consisting of ambulatory clinics and hospital sitesin [place], [place], [place] and [place]. This disclosure is being madepursuant to the Care Everywhere program and may not contain all information available regarding this patient. Last updated 18.[facility] Encounters Date Type Department Care Team Description 09/29/2024 Travel 09/29/2024 10:00 AM DOCUMENT CONTROLLER - 09/29/2024 11:30 AM DOCUMENT CONTROLLER Surgery [facility] - Cardiac Cook Box Filler [address] [place] [address] Marco Antonio Gunn MD Coronary Angiography 09/29/2024 8:38 AM DOCUMENT CONTROLLER - 09/29/2024 1:37 PM DOCUMENT CONTROLLER Hospital Encounter [facility] - Cardiac Cook Box Filler [address] [place] [address] Marco Antonio Gunn MD Cardiac Catheterization Discharge Disposition: Home or Self Care 09/26/2024 Telephone [facility] [address] [place] [address] [address] [place] [address] Bry Anne MD Preop Question from Last [...] Comments Blood Pressure 103/61 09/29/2024 1:15 PM DOCUMENT CONTROLLER Pulse 80 09/29/2024 1:15 PM DOCUMENT CONTROLLER Temperature 36.1 C (96.9 F) 06/01/2023 1:26 PM CDT Respiratory Rate 26 09/29/2024 1:15 PM DOCUMENT CONTROLLER Oxygen Saturation 97% 09/29/2024 1:15 PM DOCUMENT CONTROLLER Inhaled Oxygen Concentration - - Weight 146.1 kg (322 lb 3.2 oz) 09/29/2024 9:00 AM DOCUMENT CONTROLLER Height 180.3 cm (5' 11 ) 09/29/2024 9:00 AM DOCUMENT CONTROLLER Body Mass Index 44.94 09/29/2024 9:00 AM DOCUMENT CONTROLLER Plan of Treatment Upcoming Encounters Date Type Department Care Team (Late st Contact Info) Description 08/16/2025 2:00 PM CDT Office Visit [facility] [address] [place] [address] [address] [place] [address] Bry Anne MD [address] [place] [address] [address] [place] [address] Procedures Procedure Name Priority Date/Time Associated Diagnosis Comments CARDIAC PROCEDURE ORDER 10/03/2024 6:58 PM DOCUMENT CONTROLLER CCL LEFT HEART CATH Routine 09/29/2024 1 1:08 AM DOCUMENT CONTROLLER CORONARY ANGIOGRAPHY Routine 09/29/2024 11:08 AM DOCUMENT CONTROLLER BASIC METABOLIC PANEL (CALCIUM TOTAL) Routine 09/13/2024 11:03 AM DOCUMENT CONTROLLER Abnormal stress test CBC W AUTO DIFFERENTIAL Routine 09/13/2024 11:03 AM DOCUMENT CONTROLLER Abnormal stress test from Last 3 Months Results * CARDIAC PROCEDURE ORDER (10/03/2024 6:58 PM DOCUMENT CONTROLLER) Narrative 10/03/2024 6:58 PM DOCUMENT CONTROLLER Ordered by an unspecified provider. Scanned Document CARDIAC SERVICES ORD ERABLES * CORONARY ANGIOGRAPHY, CCL LEFT HEART CATH (09/29/2024 11:08 AM DOCUMENT CONTROLLER) Anatomical Region Laterality Modality X-Ray Angiograph y Narrative 09/29/2024 11:25 AM DOCUMENT CONTROLLER Left main - short, no significant disease [...] * CBC WITH DIFFERENTIAL (09/13/2024 11:03 AM DOCUMENT CONTROLLER) WBC 6.7 3.4 - 10.8 x10E3/uL [facility] INSURANCE BILL Comment: Effective September 19, 2024 profile [id number] WBC will be made non-orderable as a [...] BLOOD SPECIMEN / Unknown 09/13/2024 11:03 AM DOCUMENT CONTROLLER 09/13/2024 Narrative [facility] INSURANCE BILL - 09/14/2024 7:13 AM DOCUMENT CONTROLLER Performed at: [address] [place] [id number] Compensator Worker: Omi Monique PhD, Phone: [phone] Marco Antonio Gunn MD LAB - HEMATOLOGY ORD ERABLES [facility] INSURANCE BILL [address] [place] [address] * (ABNORMAL) BASIC METABOLIC PANEL (BMP) (09/13/2024 11:03 AM DOCUMENT CONTROLLER) Glucose 134(H) 70 - 99 mg/dL [facility] [...] BLOOD SPECIMEN / Unknown 09/13/2024 11:03 AM DOCUMENT CONTROLLER 09/13/2024 Narrative [facility] INSURANCE BILL - 09/14/2024 7:13 AM DOCUMENT CONTROLLER Performed at: 01 - [facility] [address] [place], [place] [id number] Compensator Worker: Omi Monique PhD, Phone: [phone] Marco Antonio Gunn MD LAB - CHEMISTRY JUSTINE LAWSON [facility] INSURANCE BILL [address] [place] [address] from Last 3 Months Advance Directives * Full Code (Latest Code Status on File) Date Activated Date Inactivated Comments 09/29/2024 11:23 AM 09/29/2024 2:43 PM Care Teams Treasury Agent Relationship Specialty Start Date End Date David Gtz MD [address] [place] [address] PCP - General 08/01/08 Bry Anne MD [address] [place] [address] Cardiology 09/30/19 Abner Mancia MD [address] [facility] 200 [place] [address] Urology 09/30/19 Donald Frank MD [address] [place] [address] Referring Physician Plastic and Reconstructive Surgery 09/30/19
--- OUTSIDE RECORDS SUMMARY | 2024-12-07 19:12 | XMS_ITS | Patient Health Summary ---
Author Organization [facility] Address [address] [place] [address] Care Team Providers Care Finance Specialist Name Role Phone David Gtz MD Primary Care Provider + Lisseth Anne MD Unavailable [phone] Abner Mancia MD Unavailable [phone] Donald Frank MD Unavailable [phone] Note from [facility],non-owned Affiliates and Associated Physician Practices is amultiple site organization consisting of ambulatory clinics and hospital sitesin [place], [place], [place] and [place]. This disclosure is being madepursuant to the Care Everywhere program and may not contain all information available regarding this patient. Last updated 18.[facility] Allergies * Adhesive Sensitivity(Other) * Hydrocodone-Acetaminophen(Rash,Unknown) -Medium [...] Comments Blood Pressure 103/61 09/29/2024 1:15 PM DISPATCH CLERK Pulse 80 09/29/2024 1:15 PM DISPATCH CLERK Temperature 36.1 C (96.9 F) 06/01/2023 1:26 PM CDT Respiratory Rate 26 09/29/2024 1:15 PM DISPATCH CLERK Oxygen Saturation 97% 09/29/2024 1:15 PM DISPATCH CLERK Inhaled Oxygen Concentration - - Weight 146.1 kg (322 lb 3.2 oz) 09/29/2024 9:00 AM DISPATCH CLERK Height 180.3 cm (5' 11 ) 09/29/2024 9:00 AM DISPATCH CLERK Body Mass Index 44.94 09/29/2024 9:00 AM DISPATCH CLERK Procedures * CARDIAC PROCEDURE ORDER(Performed 10/03/2024) * [...] * CARDIAC PROCEDURE ORDER (10/03/2024 6:58 PM DISPATCH CLERK) Narrative 10/03/2024 6:58 PM DISPATCH CLERK Ordered by an unspecified provider. Scanned Document CARDIAC SERVICES ORD ERABLES * CORONARY ANGIOGRAPHY, CCL LEFT HEART CATH (09/29/2024 11:08 AM DISPATCH CLERK) Anatomical Region Laterality Modality X-Ray Angiograph y Narrative 09/29/2024 11:25 AM DISPATCH CLERK Left main - short, no significant disease [...] * CBC WITH DIFFERENTIAL (09/13/2024 11:03 AM DISPATCH CLERK) WBC 6.7 3.4 - 10.8 x10E3/uL [facility] INSURANCE BILL Comment: Effective September 19, 2024 profile [id number] WBC will be made non-orderable as a [...] BLOOD SPECIMEN / Unknown 09/13/2024 11:03 AM DISPATCH CLERK 09/13/2024 Narrative [facility] INSURANCE BILL - 09/14/2024 7:13 AM DISPATCH CLERK Performed at: [address] [place] [id number] Biology Instructor: Omi Monique PhD, Phone: [phone] Marco Antonio Gunn MD LAB - HEMATOLOGY ORD ERABLES [facility] INSURANCE BILL [address] [place] [address] * (ABNORMAL) BASIC METABOLIC PANEL (BMP) (09/13/2024 11:03 AM DISPATCH CLERK) Glucose 134(H) 70 - 99 mg/dL [facility] [...] BLOOD SPECIMEN / Unknown 09/13/2024 11:03 AM DISPATCH CLERK 09/13/2024 Narrative [facility] INSURANCE BILL - 09/14/2024 7:13 AM DISPATCH CLERK Performed at: 01 - [facility] [address] [place], [place] [id number] Biology Instructor: Omi Monique PhD, Phone: [phone] Marco Antonio Gunn MD LAB - CHEMISTRY JUSTINE LAWSON [facility] INSURANCE BILL [address] [place] [address] * (ABNORMAL) HEMOGLOBIN A1C (EXTERNAL RESULT ENTRY) (08/31/2024) Hemoglobin A1c (EXTERNAL RESULT) 6.8(H) % OUTSIDE REFERENCE LAB Comment:[facility] up - no lab indicated (scanned) Blood BLOOD SPECIMEN / Unknown 08/31/2024 Historical Provider LAB - CHEMISTRY Sven LUO Performing Organization Address City/[facility] Co de Phone Number OUTSIDE REFERENCE LAB * NM MYOCARD PERF REST STRESS (08/25/2024 11:16 AM DISPATCH CLERK) Anatomical Region Laterality Modality Chest Nuclear Digisoni cs 08/25/2024 9:20 AM DISPATCH CLERK Narrative Procedure Note Rashaun Chan MD - 08/25/2024 [address] [facility] [place] [address] [facility] Nuclear Myocardial Perfusion Scan Report Pat.Name: MARBIN DE LA CRUZ Pat.ID: [id number] St.Date: 08/25/2024 Refer.: Jeannine Gtz Exam Time: 9:20:00 AM Study Type:Nuclear Myocardial Perfusion Scan Weight: 326lb Age: 10 1960,64Y Sex: MALE Sonogrphr: DWAINE Martínez Reason for Study: Dyspnea, Chest pressure Procedures: Lexiscan Perfusion Scan, Gated Stress Visit ID: [id number] Risk Factors:Hypertension, Diabetes, Hypercholesterolemia Clinical Symptoms:Dyspnea, Chest [...] STRESS TEST Pharm-Lexiscan (Regadenoson) (08/25/2024 9:35 AM DISPATCH CLERK) Anatomical Region Laterality Modality Cardiac Electrop hysiology 08/25/2024 8:30 AM DISPATCH CLERK Narrative 08/25/2024 11:45 AM DISPATCH CLERK Patient Info Name: Marbin De La Cruz Age: 64 years : 1960 Gender: Male Ht: 71 in Wt: 326 lb BSA: 2.79 m2 HR: 75 bpm BP: 146 / 75 mmHg Heart Rhythm: Sinus Rhythm, ST T wave abnormality, consider anterolateral ischemia Exam Date: 08/25/2024 8:30 AM Patient Status: O/P Study Site: [facility] Primary Location: [facility] EStudy Info Exam Type: STRESS TEST [...] 8:30 AM Patient Status: O/P Study Site: [facility] Primary Location: [facility] EStudy Info Exam Type: STRESS TEST Indications R06.00 - Dyspnea, unspecified type Procedure(s) * Pharmacological stress test was performed. Staff Referring Physician: Lisseth Anne Ordering Provider: Lisseth nAne Attending Physician: Lisseth Anne Nurse: Ernst Price [...] ECHO COMPLETE (08/06/2023 2:35 PM CDT) BSA 2.8986748 m2 [facility] CV FUJ I PACS LVOT [...] LA vol BP 86.325 mL [facility] CV [facility] I PACS LVOT pk jomar 1.23 [...] PACS TV S' jomar 11.[address] [facility] I PACS TAPSE 2.328 1.7 [address] [facility] [address] [facility] I PACS AV mn grad 5 mmHg [facility] CV FU JI PACS AV pk grad 10 mmHg [facility] CV FU JI PACS AV mn jomar 1.03 m/s [facility] CV [facility] I PACS AV pk jomar 1.55 [...] (Bezet) 394 ms [facility] MUSE Calculated P [place] 22 degrees [facility] MUSE Calculated R [place] 46 degrees [facility] MUSE Calculated T [place] 64 degrees [facility] MUSE Interpretation EKG NORMAL SINUS RHYTHM NORMAL ECG Confirmed by MD Dayana, Lisseth ([id number]) on 06/03/2023 7:24:15 AM [facility] MUSE 06/01/2023 12:5 8 PM CDT 06/03/2023 7:24 AM CDT Lisseth Anne MD ECG ORDERABLES [facility] MUSE * ECHOCARDIOGRAM STRESS Walking Stress ECHO (10/14/2019 9:32 AM DISPATCH CLERK) 10/14/2019 9:32 AM DISPATCH CLERK Narrative [facility] CARDIOLOGY - 10/15/2019 12:54 PM DISPATCH CLERK [address] [address] Exercise Stress Echocardiography Name: MARBIN DE LA CRUZ MR #: [id number] Study date: 14-Oct-2019 : 1960 Age: 59 years Gender: Male Height: 71 in Weight: 327 lb BSA: 2.6 m Allergies: HYDROCODONE-ACETAMINOPHEN Injection Molding Machine Operator: Dank Nelson RDCS Referring Physician: Lisseth Anne [...] peak heart rate and blood pressure [place] [address]. There was no chest pain during stress. [...] Procedure Note Nikki Choudhary MD - 10/15/[address] [address] Exercise Stress Echocardiography Name: MARBIN DE LA CRUZ MR #: [id number] Study date: 14-Oct-2019 : 1960 Age: 59 years Gender: Male Height: 71 in Weight: 327 lb BSA: 2.6 m Allergies: HYDROCODONE-ACETAMINOPHEN Injection Molding Machine Operator: Dank Nelson RDCS Referring Physician: Lisseth Anne [...] peak heart rate and blood pressure [place] [address]. There was no chest pain during stress. [...] 15-Oct-2019 12:54:38 Lisseth Anne MD ECHO ORDERABLES [facility] [address] [place] [address] * ECG STRESS TRACING (10/14/2019 9:27 AM DISPATCH CLERK) Pathologist [facility] Stress Test Summary For full formatted report, [...] decreaed by submaximal stress. Confirmed by Nikki hCoudhary ([id number]) on 10/16/2019 7:25:17 PM Also confirmed by Nikki Choudhary ([id number]), script editor Velma Otoole ([id number]) on 10/31/2019 4:05:38 PM Attending Physician: Referred By: LISSETH ANNE Overread By: Nikki Choudhary [facility] STRESS 10/14/2019 9:27 AM DISPATCH CLERK 10/31/2019 4:05 PM DISPATCH CLERK Lisseth Anne MD CARDIAC SERVICES ORD ERABLES [facility] STRESS * LAB HISTORICAL RESULTS-ONBASE (02/22/2008) Only the most recent of12 resultswithin the time period is included. 02/22/2008 Historical Provider LAB - CHEMISTRY O RDERABLES [facility] [address] Care Teams Finance Specialist Relationship Specialty Start Date End Date David Gtz MD [address] [facility] [address] [place] [address] PCP - General 08/01/08 Lisseth Anne MD [address] [facility] [address] [place] [address] Cardiology 09/30/19 Abner Mancia MD [address] [facility] [address] [place] [address] Urology 09/30/19 Donald Frank MD [address] [place] [address] Referring Physician Plastic and Reconstructive Surgery 09/30/19
--- OUTSIDE RECORDS SUMMARY | 2024-12-07 19:12 | XMS_ITS | Clinical Summary ---
Author Organization [facility] Address [address], [address] [address] Phone Care Team Providers Care Sports Physiotherapist Name Role Phone David Gtz MD Primary Care Provider + Bry Marks DO Unavailable Allergies Active Allergy Reactions Criticality Noted Date [...] Take 25 mg by mouth daily. Active [place]-3 Fatty Acids (FISH OIL PO) Take by [...] Most Recently Relevant to Health Maintenance Insurance [facility] Care Teams Sports Physiotherapist Relationship Specialty Start Date End Date David Gtz MD [address] [place] [address] PCP - General Family Medicine 07/11/16 Bry Marks DO [address] [place] [address] Gastroenterology 07/11/16
--- OUTSIDE RECORDS SUMMARY | 2024-12-07 19:12 | XMS_ITS | Clinical Summary ---
Author Organization [facility] Address [address] [facility] [place] [address] Care Team Providers Care Optimization Manager Name Role Phone David Gtz MD Primary Care Provider + Bry Anne MD Unavailable Abner Mancia MD Unavailable Donald Frank MD Unavailable [phone] Source Comments [facility],non-owned Affiliates and Associated Physician Practices is amultiple site organization consisting of ambulatory clinics and hospital sitesin [place], [place], [place] and [place]. This disclosure is being madepursuant to the Care Everywhere program and may not contain all information available regarding this patient. Last updated 18.[facility] Allergies Active Allergy Reactions Criticality [...] Department Care Team Description 09/29/2024 10:00 AM FREIGHT SERVICE INSPECTOR - 09/29/2024 11:30 AM [facility] Surgery [facility] - Cardiac Electronic Prepress System Operator [address] [place] [address] Marco Antonio Gunn MD Coronary Angiography 09/29/2024 8:38 AM FREIGHT SERVICE INSPECTOR - 09/29/2024 1:37 PM [facility] Hospital Encounter [facility] - Cardiac Electronic Prepress System Operator [address] [place] [address] Marco Antonio Gunn MD Cardiac Catheterization Discharge Disposition: Home or Self Care 09/29/2024 Travel 09/26/2024 Telephone [facility] [address] [place] [address] [address] [place] [address] Bry Anne MD Preop Question from Last [...] Comments Blood Pressure 103/61 09/29/2024 1:15 PM FREIGHT SERVICE INSPECTOR Pulse 80 09/29/2024 1:15 PM FREIGHT SERVICE INSPECTOR Temperature 36.1 C (96.9 F) 06/01/2023 1:26 PM CDT Respiratory Rate 26 09/29/2024 1:15 PM FREIGHT SERVICE INSPECTOR Oxygen Saturation 97% 09/29/2024 1:15 PM FREIGHT SERVICE INSPECTOR Inhaled Oxygen Concentration - - Weight 146.1 kg (322 lb 3.2 oz) 09/29/2024 9:00 AM FREIGHT SERVICE INSPECTOR Height 180.3 cm (5' 11 ) 09/29/2024 9:00 AM FREIGHT SERVICE INSPECTOR Body Mass Index 44.94 09/29/2024 9:00 AM FREIGHT SERVICE INSPECTOR Plan of Treatment Upcoming Encounters Date Type Department Care Team (Late st Contact Info) Description 08/16/2025 2:00 PM CDT Office Visit [facility] [address] [place] [address] [address] [place], [place] [id number] Bry Anne MD [address] [place] [address] [address] [place] [address] Health Maintenance Due Date Last [...] Comments CARDIAC PROCEDURE ORDER 10/03/2024 6:58 PM FREIGHT SERVICE INSPECTOR CCL LEFT HEART CATH Routine 09/29/2024 1 1:08 AM FREIGHT SERVICE INSPECTOR CORONARY ANGIOGRAPHY Routine 09/29/2024 11:08 AM FREIGHT SERVICE INSPECTOR BASIC METABOLIC PANEL (CALCIUM TOTAL) Routine 09/13/2024 11:03 AM FREIGHT SERVICE INSPECTOR Abnormal stress test CBC W AUTO DIFFERENTIAL Routine 09/13/2024 11:03 AM FREIGHT SERVICE INSPECTOR Abnormal stress test from Last 3 Months Results * CARDIAC PROCEDURE ORDER (10/03/2024 6:58 PM FREIGHT SERVICE INSPECTOR) Narrative 10/03/2024 6:58 PM FREIGHT SERVICE INSPECTOR Ordered by an unspecified provider. Scanned Document CARDIAC SERVICES ORD ERABLES * CORONARY ANGIOGRAPHY, CCL LEFT HEART CATH (09/29/2024 11:08 AM FREIGHT SERVICE INSPECTOR) Anatomical Region Laterality Modality X-Ray Angiograph y Narrative 09/29/2024 11:25 AM FREIGHT SERVICE INSPECTOR Left main - short, no significant [...] * CBC WITH DIFFERENTIAL (09/13/2024 11:03 AM FREIGHT SERVICE INSPECTOR) WBC 6.7 3.4 - 10.8 x10E3/uL [facility] INSURANCE BILL Comment: Effective September 19, 2024 profile [id number] WBC will be made non-orderable as a [...] BLOOD SPECIMEN / Unknown 09/13/2024 11:03 AM FREIGHT SERVICE INSPECTOR 09/13/2024 Narrative [facility] INSURANCE BILL - 09/14/2024 7:13 AM FREIGHT SERVICE INSPECTOR Performed at: 01 - [facility] [address] [id number] Route Sales Person: Omi Monique PhD, Phone: [phone] Marco Antonio Gunn MD LAB - HEMATOLOGY ORD ERABLES [facility] INSURANCE BILL [address] [place] [address] * (ABNORMAL) BASIC METABOLIC PANEL (BMP) (09/13/2024 11:03 AM FREIGHT SERVICE INSPECTOR) Glucose 134(H) 70 - 99 mg/dL [...] BLOOD SPECIMEN / Unknown 09/13/2024 11:03 AM FREIGHT SERVICE INSPECTOR 09/13/2024 Narrative [facility] INSURANCE BILL - 09/14/2024 7:13 AM FREIGHT SERVICE INSPECTOR Performed at: 01 - [facility] [address] [id number] Route Sales Person: Omi Monique PhD, Phone: [phone] Marco Antonio Gunn MD LAB - CHEMISTRY JUSTINE LAWSON Performing Organization Address City/[facility]/ZIP Co de Phone Number [facility] INSURANCE BILL [address] [place] [address] from Last 3 Months Advance Directives * Full Code (Latest Code Status on File) Date Activated Date Inactivated Comments 09/29/2024 11:23 AM 09/29/2024 2:43 PM Care Teams Optimization Manager Relationship Specialty Start Date End Date David Gtz MD [address] [facility] [address] [place], [place] [phone] PCP - General 08/01/08 Bry Anne MD [address] [place] [address] Cardiology 09/30/19 Abner Mancia MD [address] [place] [address] Urology 09/30/19 Donald Frank MD [address] [place] [address] Referring Physician Plastic and Reconstructive Surgery 09/30/19
--- OUTSIDE RECORDS SUMMARY | 2024-12-07 19:12 | XMS_ITS | Continuity of Care Document ---
Author Organization [facility] Address [address] [place] [address] [address] [place] [address] Phone Care Team Providers Care Ski Technician Name Role Phone Sarkis, Bryant Unavailable Unavailable Advance Directives Directive Yes / No Effective Date File Name No Information Encounters Encounter Description Practice Location Reason(s) For Visit Diagnoses Date Provider Providers Copied on Encounter [facility], [address], [place], [place], [id number], [place] tel:[phone] [facility] No Information Mar-2 0-200 6 Doisy Edward. [address] [facility] , [address], [place], [address], [place]. tel:[phone] Family History Family Member Type Diagnosis Age At Onset No Information Payers Payer name Insurance type Covered constitution party ID Authoriza titeresa(s) [employer] CI [id number] Social History Type Description Quantity Date Captured [...]
--- OUTSIDE RECORDS SUMMARY | 2024-12-07 19:12 | XMS_ITS | Referral Summary ---
Author Organization [facility] Medical [facility] [address] Address [address] [place] [address] Care Team Providers Care Fitter Armament Name Role Phone David Gtz MD Primary [...] (10/20/2019): Added automatically from request for surgery [id number] Abdominal pannus 10/20/2019 Overview (10/21/2019): Added automatically from request for surgery [id number] Hemangioma of skin 03/31/2017 Skin benign neoplasm [...] on file Legal Sex Male 4:44 AM DEHORNER Gender Identity Not on file Sexual Orientation Not on file Last Filed Vital Signs Vital Sign Reading Time Taken Comments Blood Pressure 132/62 09/28/2021 1:35 PM DEHORNER Pulse 76 09/28/2021 1:35 PM DEHORNER Temperature 36.8 C (98.2 F) 09/28/2021 1:35 PM DEHORNER Respiratory Rate 18 09/28/2021 1:35 PM DEHORNER Oxygen Saturation 97% 09/28/2021 3:07 PM DEHORNER Inhaled Oxygen Concentration - - Weight 144.8 kg (319 lb 4.8 oz) 09/28/2021 1:35 PM DEHORNER Height 180.3 cm (5' 11 ) 09/28/2021 1:35 PM DEHORNER Body Mass Index 44.53 09/28/2021 1:35 PM DEHORNER Plan of Treatment Not on file Insurance [facility] [employer] [place] [employer] [place] Advance Directives For more information, please contact: [phone] Documents on File Type Date Recorded Patient Bottom Ironer Expl anation ADVANCE DIRECTIVE 11/25/2019 1:11 PM Power of End Trimmer-Medical * Full Code (Latest Code Status on File) Date Activated Date Inactivated Comments 12/06/2019 4:28 PM 12/11/2019 6:08 PM Care Teams Fitter Armament Relationship Specialty Start Date End Date David Gtz MD PCP - General Family Medicine 02/09/19
[2024-12-07 19:50] LABS: Basophils Percent Auto 0.4 % (0.2-1.2); Eosinophils Absolute Auto 0.3 K/mm3 (0-0.3); Eosinophils Percent Auto 4.1 % (0-4.4); Hematocrit 36.6 % (42.0-52.0); Hemoglobin 11.7 g/dL (14.0-18.0); Immature Granulocyte Absolute 0.01 K/mm3 (0.00-0.031); Immature Granulocyte Percent A 0.1 % (0-0.5); Lymphocytes Absolute Auto 1.29 K/mm3 (0.9-3.2); Lymphocytes Percent Auto 18.1 % (18.3-44.2); Mean Corpuscular Hemoglobin 30.4 pg (26-34); Mean Corpuscular Volume 95.1 fl (80-100); Mean Platelet Volume 10.2 fl (7.4-10.4); Monocytes Absolute Auto 0.7 K/mm3 (0.1-0.6); Monocytes Percent Auto 10.2 % (2.6-8.5); Neutrophils Absolute Auto 4.8 K/mm3 (1.3-6.7); Neutrophils Percent Auto 67.1 % (45.5-73.1); Platelet Count Result 241 k/mm3 (150-375); Red Blood Count 3.85 M/mm3 (4.6-6.20); Red Cell Distribution Width 14.5 % (11.5-14.5); White Blood Count 7.1 K/mm3 (4.5-10.0)
[2024-12-07 20:00] LABS: Alanine Aminotransferase 22 U/L (6-50); Albumin Level 3.8 g/dL (3.5-5.1); Alkaline Phosphatase 65 U/L (38-126); Anion Gap 11 mmol/L (4-12); Aspartate Amino Transferase 23 U/L (17-59); Bilirubin,Total 0.6 mg/dL (0.2-1.3); Blood Urea Nitrogen 31 mg/dL (9-20); Calcium 9.6 mg/dL (8.4-10.2); Carbon Dioxide 25 mmol/L (22-30); Chloride 102 mmol/L (98-107); Estimated Glomerular Filt Rate > 60; Glucose 122 mg/dL (65-110); Potassium 4.8 mmol/L (3.4-5.0); Sodium 138 mmol/L (137-145)
[2024-12-07 20:34] VITALS: BP 124/70; PULSE 82; RESP 18; TEMP 36.4; O2SAT 99
[2024-12-07] MEDS: LACTATED RINGERS 1,000 ML 150 ML IV CONT (21:20)
[2024-12-07] MEDS: PIPERACILLN/TAZ 3.375GM/NS50ML 3.375 GM/50 ML BAG IVPB (21:21)
[2024-12-07 23:40] LABS: Glucose Point of Care 93 mg/dl (65-105)
[2024-12-08] MEDS: PIPERACILLN/TAZ 3.375GM/NS50ML 3.375 GM/50 ML BAG IVPB ×4 (02:47→20:06)
[2024-12-08] MEDS: LACTATED RINGERS 1,000 ML 150 ML IV CONT ×2 (02:48→09:41)
[2024-12-08 05:38] VITALS: BP 100/51; PULSE 77; RESP 18; TEMP 36.5; O2SAT 99
[2024-12-08 06:13] LABS: Glucose Point of Care 107 mg/dl (65-105)
[2024-12-08 06:30] LABS: Hematocrit 36.3 % (42.0-52.0); Hemoglobin 11.5 g/dL (14.0-18.0); Mean Corpuscular HGB Conc 31.7 g/dl (32-36); Mean Corpuscular Hemoglobin 30.2 pg (26-34); Mean Corpuscular Volume 95.3 fl (80-100); Mean Platelet Volume 10.2 fl (7.4-10.4); Platelet Count Result 210 k/mm3 (150-375); Red Blood Count 3.81 M/mm3 (4.6-6.20); Red Cell Distribution Width 14.3 % (11.5-14.5); White Blood Count 4.7 K/mm3 (4.5-10.0)
[2024-12-08 06:43] LABS: Anion Gap 5 mmol/L (4-12); Blood Urea Nitrogen 26 mg/dL (9-20); Carbon Dioxide 29 mmol/L (22-30); Chloride 103 mmol/L (98-107); Estimated CRCL calculation 80 ml/min; Estimated Glomerular Filt Rate > 60; Glucose 100 mg/dL (65-110); Potassium 4.4 mmol/L (3.4-5.0); Sodium 137 mmol/L (137-145)
--- NOTE | 2024-12-08 08:56 | P.HP_ITS ---
H&P: HPI History of Present Illness Date/Time: 12/08/24 08:56 Chief Complaint: Abdominal bloating Narrative: This is a 64-year-old man with PMH of diabetes, hypertension, gout, and morbid obesity, who was recently admitted for perforated diverticulitis from 11/08/2024 through 11/11/2024. He was treated with IV antibiotics and discharged on oral antibiotics. He reportedly completed all antibiotics as prescribed. He was feeling better with no abdominal pain or tenderness. He was seen in our office by Dr. Lujan 2 weeks ago and his diet was advanced to a regular diet. He was referred to GI and actually had a colonoscopy scheduled for today. Over the past few weeks, he has noticed some intolerance to solid foods. He reports having no issues with essentially a full liquid diet. He reports that if he e ats solid foods, as the day progresses, he will develop abdominal bloating and ?just does not feel right.? He denies any abdominal pain, nausea, vomiting, or blood in stool. He has noticed he is not moving his bowels as regularly, but has attributed this to his altered diet. He is not taking in as much at meals and feels full quickly. He did take an OTC stool softener on one occasion, which helped him move his bowels and feel relief. Due to his intermittent symptoms of bloating, he called our office and was set up for an outpatient CT scan of the abdomen and pelvis. This showed perforated sigmoid diverticulitis similar in appearance to prior exam with a small amount of local free air and phlegmonous change. No drainable abscess. He was then directed to the ED and also call GI to let them know to cancel his colonoscopy. He has been rescheduled to December 23. Labs in the ED showed a white blood cell count of 7,100, BUN 31, creatinine 1.08. He was admitted and started on IV Zosyn. He has analgesics available, but has not required any pain medication as he is not having any pain. His last bowel movement was 2 days ago. He is passing flatus. To note, he has a history of a panniculectomy a 5 years ago. Some of the skin from the panniculectomy was used as a skin graft for his penis. This was a difficult surgery for him with delayed healing and the panniculectomy itself had a postoperative hematoma. His last colonoscopy was in 2020 that showed 2 small sigmoid polyps which were removed and both tubular adenomas. Review of Systems Review of Systems: All systems reviewed & are unremarkable except as noted in HPI and below PMFSH Past Medical History Medical History Morbid obesity with BMI of 40.0-44.9, adult Lichen sclerosus Venous insufficiency (chronic) (peripheral) Gout, unspecified Diabetic retinopathy ZULEYMA (obstructive sleep apnea) Hypertension Hyperlipidemia Surgical History Surgical History History of cardiac catheterization History of colonoscopy with polypectomy Status post arthroscopy of knee Bilateral knee History of skin graft (2019) Of the penis Status post panniculectomy (2019) Family History Family History Father Diabetes mellitus Diverticulitis Hypertension Multiple myeloma Mother Diabetes mellitus Multiple myeloma Social History Social History Social History: Patient lives with his of 34 years. 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 He retired diff of October 2024. He is a lifelong nonsmoker. He only drinks alcohol on extremely rare occasion and in minimal amounts. Code status: Full code [facility] power of civil attorney: Cheli () Smoking status: Never smoker Alcohol intake: never Substance use: never Substance use type: does not use Do You Feel Safe in your Home?: Yes Lack of Transportation: No Lack of Food: Never True Current Housing: I Have Housing Concerned About Future Housing: No Difficulty Paying Gas/Electric Bills: No Difficulty Paying for Meds: No Currently Unemployed: No Education: Bachelor's Degree Difficulty w/ Childcare or Family Care: No Living arrangements: with family Spiritual care concerns: No Meds Home Medications and Allergies Home Medications ?Medication ?Instructions ?Recorded ?Confirmed ?Type aspirin 81 mg tablet 81 mg PO DAILY 08/29/21 12/07/24 History fvcnllgn-ez-vprzr 300 mcg-K 60 1 tablet PO DAILY 07/10/22 12/07/24 History mcg-lycop 600 mcg-lutein 300 mcg tablet (Men 50 Plus Multivitamin) metoprolol succinate 100 mg See Rx Instructions .Route 05/03/24 12/07/24 Rx tablet,extended release 24 hr .COMPLEX #270 tabs atorvastatin 20 mg tablet See Rx Instructions .Route 05/09/24 12/07/24 Rx .COMPLEX #90 tabs allopurinol 300 mg tablet 300 mg PO DAILY #90 tabs 08/01/24 12/07/24 Rx pioglitazone 45 mg tablet 45 mg PO DAILY #90 tabs 08/04/24 12/07/24 Rx spironolactone 25 mg tablet See Rx Instructions .Route 08/04/24 12/07/24 Rx .COMPLEX #90 tabs blood sugar diagnostic (OneTouch #100 ea 08/29/24 12/07/24 Rx Ultra Test strips) semaglutide 1 mg/dose (4 mg/3 mL) 1 mg (0.75 mL) subcut WEEKLY #3 mL 10/29/24 12/07/24 Rx subcutaneous pen injector (Ozempic) minoxidil 10 mg tablet See Rx Instructions .Route 11/06/24 12/07/24 Rx .COMPLEX #45 tabs valsartan 320 mg tablet 160 mg PO DAILY 11/08/24 12/07/24 History Allergies Allergy/AdvReac Type Severity Reaction Status Date / Time acetaminophen (From Lortab) Allergy Vomiting Verified 12/06/24 10:30 hydrocodone (From Lortab) Allergy Vomiting Verified 12/06/24 10:30 Vital Signs Vital Signs - 24 hr 12/07/24 20:00 12/07/24 20:34 12/08/24 05:38 Temperature 97.6 F 97.7 F Pulse Rate 82 77 Respiratory Rate 18 18 Blood Pressure 124/70 100/51 L Pulse Oximetry 99 99 Oxygen Delivery Room Air Exam Const: General: comfortable and no acute distress Nutritional Appearance: obese Orientation/consciousness: patient oriented x3 HENMT: Head: normocephalic and atraumatic Ears: hearing grossly normal bilaterally Mouth: Yes moist mucous membranes Eyes: General: appearance normal, both eyes and all related structures Pupils: Equal, round and reactive pupils present Neck: Neck: normal visual inspection and full ROM Resp: Effort & Inspection: no respiratory distress Auscultation: clear to auscultation bilaterally Cardio: Rate: regular rate Rhythm: regular rhythm Peripheral pulses: Peripheral pulses 2+ throughout GI: Inspection: non-distended, obesity, scar (large horizontal lower abdominal scar from panniculectomy) and no visible herniation GI Palp: Yes Soft to palpation, No Tenderness to palpation present (GI), No Guarding due to palpation present (GI), Yes No hepatosplenomegaly present and No Rebound tenderness present Percussion: Yes normal to percussion Auscultation: normal bowel sounds Rectal Exam: deferred Skin: General skin exam: normal color Neuro: General: moves all extremities and no focal motor deficits Speech: normal speech Motor exam (neuro): 5/5 motor strength present throughout Extrem: General: normal to inspection and no edema Psych: Mental Status: mental status grossly normal Attitude: cooperative Insight: Good insight present (Psych) Judgement: Good judgement present (Psych) H&P: Results Labs Labs: Short CBC 12/07/24 12/08/24 Range/Units 19:43 06:15 WBC 7.1 4.7 (4.5-10.0) K/mm3 Hgb 11.7 L 11.5 L (14.0-18.0) g/dL Hct 36.6 L 36.3 L (42.0-52.0) % Plt Count 241 210 (150-375) k/mm3 BMP 12/07/24 12/08/24 19:43 06:15 Sodium 138 137 Potassium 4.8 4.4 Chloride 102 103 Carbon Dioxide 25 29 BUN 31 H D 26 H Creatinine 1.08 1.17 Glucose 122 H 100 Calcium 9.6 9.0 Liver Function 12/07/24 Range/Units 19:43 Total Bilirubin 0.6 (0.2-1.3) mg/dL AST 23 (17-59) U/L ALT 22 (6-50) U/L Alkaline Phosphatase 65 (38-126) U/L Albumin 3.8 (3.5-5.1) g/dL Assessment and Plan Assessment and plan (1) Diverticulitis of large intestine with perforation: Qualifiers: Diverticulitis bleeding: without bleeding Qualified Code(s): K57.20 - Diverticulitis of large intestine with perforation and abscess without bleeding Code(s): K57.20 - Diverticulitis of large intestine with perforation and abscess without bleeding Status: Acute Assessment and Plan: * The patient is readmitted in the setting of perforated diverticulitis. He is having persistent symptoms of bloating and intermittent constipation. Although he is not having abdominal pain, his CT scan still showed evidence of sigmoid diverticulitis with small amount of local free air and phlegmonous change, but no abscess. His abdominal exam is completely benign and his WBC count is normal. We will treat him again conservatively with IV antibiotics for now and monitor. No indication for urgent surgical management. Will try advancing him to a full liquid diet today. Analgesics are available if needed, although he is not having pain at this time. We will continue to follow along with serial abdominal exams and labs. (2) Non-insulin dependent diabetes mellitus: Status: Chronic Assessment and Plan: * Consulted the Hospitalist for medical management while he is admitted. (3) Obstructive sleep apnea on CPAP: Code(s): G47.33 - Obstructive sleep apnea (adult) (pediatric) Status: Chronic (4) Morbid obesity with BMI of 40.0-44.9, adult: Code(s): E66.01 - Morbid (severe) obesity due to excess calories; Z68.41 - Body mass index [BMI] 40.0-44.9, adult Status: Acute (5) Essential (primary) hypertension: Code(s): I10 - Essential (primary) hypertension Status: Chronic Plan I have discussed the patient's case and plan of care with Dr. Engel.
[2024-12-08] MEDS: ENOXAPARIN 40 MG/0.4 ML SYRINGE SUB-Q (09:26)
[2024-12-08 12:30] LABS: Glucose Point of Care 109 mg/dl (65-105)
[2024-12-08 15:38] VITALS: BP 127/55; PULSE 90; RESP 18; TEMP 36.3; O2SAT 97
[2024-12-08] MEDS: LACTATED RINGERS 1,000 ML 70 ML IV CONT (16:44)
[2024-12-08 18:02] LABS: Glucose Point of Care 124 mg/dl (65-105)
[2024-12-08 21:31] VITALS: BP 105/63; PULSE 79; RESP 18; TEMP 36.3; O2SAT 96
[2024-12-09] MEDS: PIPERACILLN/TAZ 3.375GM/NS50ML 3.375 GM/50 ML BAG IVPB ×2 (03:32→09:21)
[2024-12-09] MEDS: LACTATED RINGERS 1,000 ML 70 ML IV CONT (04:32)
[2024-12-09 04:35] VITALS: BP 136/66; PULSE 89; RESP 16; TEMP 36.5; O2SAT 98
[2024-12-09 06:54] LABS: Glucose Point of Care 93 mg/dl (65-105)
[2024-12-09 06:54] LABS: Glucose Point of Care 98 mg/dl (65-105)
[2024-12-09 08:05] LABS: Basophils Percent Auto 0.4 % (0.2-1.2); Eosinophils Absolute Auto 0.2 K/mm3 (0-0.3); Eosinophils Percent Auto 4.3 % (0-4.4); Hematocrit 37.1 % (42.0-52.0); Hemoglobin 11.9 g/dL (14.0-18.0); Immature Granulocyte Absolute 0.01 K/mm3 (0.00-0.031); Immature Granulocyte Percent A 0.2 % (0-0.5); Lymphocytes Absolute Auto 1.23 K/mm3 (0.9-3.2); Lymphocytes Percent Auto 23.1 % (18.3-44.2); Mean Corpuscular HGB Conc 32.1 g/dl (32-36); Mean Corpuscular Hemoglobin 30.6 pg (26-34); Mean Corpuscular Volume 95.4 fl (80-100); Mean Platelet Volume 9.8 fl (7.4-10.4); Monocytes Absolute Auto 0.6 K/mm3 (0.1-0.6); Monocytes Percent Auto 11.1 % (2.6-8.5); Neutrophils Absolute Auto 3.2 K/mm3 (1.3-6.7); Neutrophils Percent Auto 60.9 % (45.5-73.1); Platelet Count Result 229 k/mm3 (150-375); Red Blood Count 3.89 M/mm3 (4.6-6.20); Red Cell Distribution Width 14.4 % (11.5-14.5); White Blood Count 5.3 K/mm3 (4.5-10.0)
[2024-12-09 08:19] LABS: Alanine Aminotransferase 18 U/L (6-50); Albumin Level 3.6 g/dL (3.5-5.1); Alkaline Phosphatase 59 U/L (38-126); Anion Gap 8 mmol/L (4-12); Aspartate Amino Transferase 23 U/L (17-59); Bilirubin,Total 0.6 mg/dL (0.2-1.3); Blood Urea Nitrogen 18 mg/dL (9-20); Calcium 9.2 mg/dL (8.4-10.2); Carbon Dioxide 28 mmol/L (22-30); Chloride 102 mmol/L (98-107); Estimated CRCL calculation 82 ml/min; Estimated Glomerular Filt Rate > 60; Glucose 104 mg/dL (65-110); Potassium 4.5 mmol/L (3.4-5.0); Sodium 138 mmol/L (137-145)
--- NOTE | 2024-12-09 09:02 | P.CONIM_ITS ---
Assessment and Plan Assessment and plan (1) Diverticulitis of large intestine with perforation: Qualifiers: Diverticulitis bleeding: without bleeding Qualified Code(s): K57.20 - Diverticulitis of large intestine with perforation and abscess without bleeding Code(s): K57.20 - Diverticulitis of large intestine with perforation and abscess without bleeding Status: Acute Assessment and Plan: ## readmitted in the setting of perforated diverticulitis. -->persistent symptoms of bloating and intermittent constipation with Ozempic --> not having abdominal pain, -->CT scan still showed evidence of sigmoid diverticulitis with small amount of local free air and phlegmonous change, but no abscess. --> abdominal exam is completely benign and his WBC count is normal. --> IV antibiotics for now and monitor. --> No indication for urgent surgical management. Labs normal, No pain. BM today. - ok to discharge medically (2) Non-insulin dependent diabetes mellitus: Status: Chronic Assessment and Plan: stable, continue home medications ---> hold Ozempic (3) Essential (primary) hypertension: Code(s): I10 - Essential (primary) hypertension Status: Chronic Assessment and Plan: stable - continue home medications (4) Gout, unspecified: Code(s): M10.9 - Gout, unspecified Status: Chronic Assessment and Plan: stable (5) Mixed hyperlipidemia: Code(s): E78.2 - Mixed hyperlipidemia Status: Acute Assessment and Plan: stable (6) Obstructive sleep apnea on CPAP: Code(s): G47.33 - Obstructive sleep apnea (adult) (pediatric) Status: Chronic Assessment and Plan: stable HPI Date of Consult Consult date: 12/09/24 Requesting Physician: Christiano Engel DO Primary Care Provider: David Gtz MD Consult Narrative Reason for consult: medical management Narrative: Marbin Anderson is a 64 year old male with PMH of diabetes, hypertension, gout, and morbid obesity, who was recently admitted for perforated diverticulitis from 11/08/2024 through 11/11/2024. Patient was treated with IV antibiotics and discharged on oral antibiotics. Patient reportedly completed all antibiotics as prescribed. Patient then was feeling better with no abdominal pain or tenderness. Patient was seen in our office by Dr. Lujan 2 weeks ago and his diet was advanced to a regular diet. Patient was referred to GI and actually had a colonoscopy scheduled for today. Over the past few weeks, he has noticed some intolerance to solid foods. He reports having no issues with essentially a full liquid diet. Patient reported that if he eats solid foods, as the day progresses, he will develop abdominal bloating and ?just does not feel right.? He denied any abdominal pain, nausea, vomiting, or blood in stool. He then noticed he is not moving his bowels as regularly, but has attributed this to his altered diet. He is not taking in as much at meals and feels full quickly. Patient however did start Ozempic in October. Patient reported taking an OTC stool softener on one occasion, which helped him move his bowels and feel relief. Due to the patient intermittent symptoms of bloating, he called our office and was set up for an outpatient CT scan of the abdomen and pelvis. This showed perforated sigmoid diverticulitis similar in appearance to prior exam with a small amount of local free air and phlegmonous change. No drainable abscess. Patient was then directed to the ED. Labs in the ED showed a white blood cell count of 7,100, BUN 31, creatinine 1.08. He was admitted and started on IV Zosyn. He has analgesics available, but has not required any pain medication as he was not having any pain. His last bowel movement was 2 days prior to arrival. Patient was able to pass flatus. Patient's medications were restarted, he tolerated them well. He was able to eat well without any pain, nausea, vomiting or diarrhea. Patient states that he is feeling well and is requesting discharge. Patient reports he is going to see his PCP and stop his Ozempic. Patient has seen surgeon this am, he is cleared for discharge and outpatient management. Review of Systems 2 Review of Systems: All systems reviewed & are unremarkable except as noted in HPI and below Constitutional: Constitutional: Reports as per HPI and Reports no additional constitutional complaints Eyes: Eyes: Reports as per HPI and Reports no additional eye complaints ENT: Reports system reviewed and no additional complaints, except as documented Cardiovascular: Cardiovascular: Reports as per HPI and Reports no additional cardiovascular complaints Respiratory: Respiratory: Reports as per HPI and Reports no additional respiratory complaints PMFSH Past Medical History Medical History Morbid obesity with BMI of 40.0-44.9, adult Lichen sclerosus Venous insufficiency (chronic) (peripheral) Gout, unspecified Diabetic retinopathy ZULEYMA (obstructive sleep apnea) Hypertension Hyperlipidemia Surgical History Surgical History History of cardiac catheterization History of colonoscopy with polypectomy Status post arthroscopy of knee Bilateral knee History of skin graft (2019) Of the penis Status post panniculectomy (2019) Family History Family History Father Diabetes mellitus Diverticulitis Hypertension Multiple myeloma Mother Diabetes mellitus Multiple myeloma Social History Social History Social History: Patient lives with his of 34 years. 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 He retired diff of October 2024. He is a lifelong nonsmoker. He only drinks alcohol on extremely rare occasion and in minimal amounts. Code status: Full code Healthcare power of senior attorney: Cheli () Smoking status: Never smoker Alcohol intake: never Substance use: never Substance use type: does not use Do You Feel Safe in your Home?: Yes Lack of Transportation: No Lack of Food: Never True Current Housing: I Have Housing Concerned About Future Housing: No Difficulty Paying Gas/Electric Bills: No Difficulty Paying for Meds: No Currently Unemployed: No Education: Bachelor's Degree Difficulty w/ Childcare or Family Care: No Living arrangements: with family Spiritual care concerns: No Meds Home Medications and Allergies Home Medications ?Medication ?Instructions ?Recorded ?Confirmed ?Type aspirin 81 mg tablet 81 mg PO DAILY 08/29/21 12/07/24 History mdqrkzfl-ra-kxzaa 300 mcg-K 60 1 tablet PO DAILY 07/10/22 12/07/24 History mcg-lycop 600 mcg-lutein 300 mcg tablet (Men 50 Plus Multivitamin) metoprolol succinate 100 mg See Rx Instructions .Route 05/03/24 12/07/24 Rx tablet,extended release 24 hr .COMPLEX #270 tabs atorvastatin 20 mg tablet See Rx Instructions .Route 05/09/24 12/07/24 Rx .COMPLEX #90 tabs allopurinol 300 mg tablet 300 mg PO DAILY #90 tabs 08/01/24 12/07/24 Rx pioglitazone 45 mg tablet 45 mg PO DAILY #90 tabs 08/04/24 12/07/24 Rx spironolactone 25 mg tablet See Rx Instructions .Route 08/04/24 12/07/24 Rx .COMPLEX #90 tabs blood sugar diagnostic (OneTouch #100 ea 08/29/24 12/07/24 Rx Ultra Test strips) semaglutide 1 mg/dose (4 mg/3 mL) 1 mg (0.75 mL) subcut WEEKLY #3 mL 10/29/24 12/07/24 Rx subcutaneous pen injector (Ozempic) minoxidil 10 mg tablet See Rx Instructions .Route 11/06/24 12/07/24 Rx .COMPLEX #45 tabs valsartan 320 mg tablet 160 mg PO DAILY 11/08/24 12/07/24 History Allergies Allergy/AdvReac Type Severity Reaction Status Date / Time acetaminophen (From Lortab) Allergy Vomiting Verified 12/06/24 10:30 hydrocodone (From Lortab) Allergy Vomiting Verified 12/06/24 10:30 Vital Signs Vital Signs - 24 hr 12/08/24 15:38 12/08/24 20:00 12/08/24 21:31 Temperature 97.3 F L 97.4 F L Pulse Rate 90 79 Respiratory Rate 18 18 Blood Pressure 127/55 L 105/63 Pulse Oximetry 97 96 Oxygen Delivery Room Air 12/09/24 00:24 12/09/24 04:35 Temperature 97.7 F Pulse Rate 89 Respiratory Rate 16 Blood Pressure 136/66 Pulse Oximetry 98 Oxygen Delivery CPAP Exam 2 Const: General: cooperative, healthy appearing, comfortable, alert and awake HENMT: Head: normal to inspection Mouth: Yes Normal oral and palatal mucosa present Eyes: General: appearance normal, both eyes and all related structures Neck: Neck: normal visual inspection, full ROM and no lymphadenopathy Chest: Chest palpation & inspection: normal inspection of the chest Resp: Effort & Inspection: normal respiratory effort and able to speak in complete sentences Auscultation: clear to auscultation bilaterally Cardio: Jugular venous distension: no JVD Palpation: normal PMI Rate: r egular rate Rhythm: regular rhythm Heart sounds: S1 normal heart sound present and S2 normal heart sound present GI: Inspection: normal to inspection GI Palp: Yes Soft to palpation A uscultation: normal bowel sounds Back/Spine/Pelvis: Back: no CVA tenderness Cervical Spine: normal cervical lordosis Thoracic/Lumbar Spine: thoracic and lumbar spine normal to inspection Pelvis: no pain with anterior-posterior compression Skin: General skin exam: normal color and no rashes or lesions noted Neuro: General: oriented to person, oriented to place, oriented to time, tone normal and moves all extremities Extrem: General: normal to inspection, full ROM and capillary refill normal Psych: Appearance: grossly normal Mental Status: mental status grossly normal Speech and movement: Normal speech and movement present Results Labs 12/09/24 07:55 12/09/24 07:55 Labs: Short CBC 12/09/24 Range/Units 07:55 WBC 5.3 (4.5-10.0) K/mm3 Hgb 11.9 L (14.0-18.0) g/dL Hct 37.1 L (42.0-52.0) % Plt Count 229 (150-375) k/mm3 BMP 12/09/24 07:55 Sodium 138 Potassium 4.5 Chloride 102 Carbon Dioxide 28 BUN 18 Creatinine 1.13 Glucose 104 Calcium 9.2 Liver Function 12/09/24 Range/Units 07:55 Total Bilirubin 0.6 (0.2-1.3) mg/dL AST 23 (17-59) U/L ALT 18 (6-50) U/L Alkaline Phosphatase 59 (38-126) U/L Albumin 3.6 (3.5-5.1) g/dL Quality VTE Prophylaxis VTE prophylaxis: mechanical ordered Hospitalist MIPS Advance Care Plan I have confirmed that the patient's Advanced Care Plan is present, code status is documented, or surrogate decision maker is listed in patient medical record.: Yes Medication Reconciliation I have utilized all available resources to obtain, update and review the patients current medications (includes all prescriptions, OTC, herbals, cannabis, and nutritional supplements).: Yes
[2024-12-09 09:19] VITALS: BP 138/68; PULSE 84; RESP 16
[2024-12-09] MEDS: ATORVASTATIN 20 MG TABLET PO (09:20)
[2024-12-09] MEDS: OPTI-GEN TAB 1 TABLET PO (09:20)
[2024-12-09 09:21] VITALS: PULSE 70
[2024-12-09] MEDS: VALSARTAN 160 MG TABLET PO (09:21)
[2024-12-09] MEDS: SPIRONOLACTONE 25 MG TABLET BY MOUTH (09:21)
[2024-12-09] MEDS: METOPROLOL SUCCINATE EXT REL 100 MG TABCR 200 MG PO (09:21)
[2024-12-09] MEDS: allopurinoL 300 MG TABLET PO (09:21)
[2024-12-09] MEDS: minoxidiL 10 MG TABLET 5 MG PO (09:22)
[2024-12-09] MEDS: PIOGLITAZONE HCL 45 MG TABLET PO (09:22)
--- NOTE | 2024-12-09 09:23 | P.DS_ITS ---
DS: Admitting Diagnosis Discharge Date 12/09/2024 Admitting Diagnosis perforated sigmoid diverticulitis DS: Discharge Diagnosis Discharge Diagnosis (1) Diverticulitis of large intestine with perforation: Qualifiers: Diverticulitis bleeding: without bleeding Qualified Code(s): K57.20 - Diverticulitis of large intestine with perforation and abscess without bleeding Code(s): K57.20 - Diverticulitis of large intestine with perforation and abscess without bleeding Status: Acute (2) Non-insulin dependent diabetes mellitus: Status: Chronic (3) Essential (primary) hypertension: Code(s): I10 - Essential (primary) hypertension Status: Chronic (4) Obstructive sleep apnea on CPAP: Code(s): G47.33 - Obstructive sleep apnea (adult) (pediatric) Status: Chronic DS: Summary Hospital Course Reason for hospitalization: perforated sigmoid diverticulitis Hospital Course: This is a 64-year-old man who presented with recurrent diverticulitis. He had been treated in the hospital 1 month ago for perforated diverticulitis. He successfully completed antibiotics and was gradually improving. Over the past couple weeks he has had increasing pain more specifically after he eating. He had an outpatient CT on 12/07/2024 which showed a recurrent perforated diverticulitis. He was directly admitted and started on IV Zosyn. His white count remained stable and he was afebrile. He had no peritoneal findings on exam. On 12/08/2024 he was started on a full liquid diet and tolerated this well. He was then advanced to a low-fiber diet and continued to tolerate this well. He was concerned that possibly his Ozempic was contributing to some of the postprandial bloating and discomfort. I discussed possibly trying dicyclomine to help with the symptoms. He also was doing Gas-X with some relief. I discussed that he will need to talk to his PCP about whether not to continued the Ozempic. He was discharged home on 12/09/2024 with a 10 day course of Augmentin and Flagyl. Status at Discharge Functional status at discharge: independent ambulation Overall status at discharge: patient is back to baseline Time Spent with Patient Time attestation: Total time spent providing and/or coordinating discharge services: Time spent: Less than 30 minutes Exam Const: General: comfortable and no acute distress Orientation/consciousness: patient oriented x3 Resp: Effort & Inspection: normal respiratory effort Auscultation: clear to auscultation bilaterally Cardio: Rate: regular rate Rhythm: regular rhythm Heart sounds: S1 normal heart sound present and S2 normal heart sound present GI: Inspection: non-distended and obesity GI Palp: Yes Soft to palpation, No Tenderness to palpation present (GI), No Guarding due to palpation present (GI) and No Rebound tenderness present Auscultation: normal bowel sounds DS: Data Data Completed and Pending Labs on day of discharge: Labs from last 24 hours 12/09/24 12/09/24 12/09/24 07:55 04:39 00:29 WBC 5.3 RBC 3.89 L Hgb 11.9 L Hct 37.1 L MCV 95.4 MCH 30.6 MCHC 32.1 RDW 14.4 Plt Count 229 MPV 9.8 Immature Gran % (Auto) 0.2 Neut % (Auto) 60.9 Lymph % (Auto) 23.1 [place] % (Auto) 11.1 H Eos % (Auto) 4.3 Baso % (Auto) 0.4 Lymph # (Auto) 1.23 [place] # (Auto) 0.6 Eos # (Auto) 0.2 Baso # (Auto) 0.0 Abs Immat Gran (auto) 0.01 Absolute Neuts (auto) 3.2 Absolute Nucleated RBC 0.000 Nucleated RBC % 0.0 Sodium 138 Potassium 4.5 Chloride 102 Carbon Dioxide 28 Anion Gap 8 BUN 18 Creatinine 1.13 Estim Creat Clear Calc 82 Estimated GFR > 60 Glucose 104 POC Capillary Glucose 98 93 Calcium 9.2 Total Bilirubin 0.6 AST 23 ALT 18 Alkaline Phosphatase 59 Total Protein 7.0 Albumin 3.6 12/08/24 12/08/24 17:59 12:24 WBC RBC Hgb Hct MCV MCH MCHC RDW Plt Count MPV Immature Gran % (Auto) Neut % (Auto) Lymph % (Auto) [place] % (Auto) Eos % (Auto) Baso % (Auto) Lymph # (Auto) [place] # (Auto) Eos # (Auto) Baso # (Auto) Abs Immat Gran (auto) Absolute Neuts (auto) Absolute Nucleated RBC Nucleated RBC % Sodium Potassium Chloride Carbon Dioxide Anion Gap BUN Creatinine Estim Creat Clear Calc Estimated GFR Glucose POC Capillary Glucose 124 H 109 H Calcium Total Bilirubin AST ALT Alkaline Phosphatase Total Protein Albumin Discharge Plan Discharge Attending physician on discharge: Wikiera,Christiano H. Consulting providers: Kyra Huff Discharging Clinician: Christiano Engel Patient Disposition: Home, Self-Care Activity: unlimited Diet: low fiber Discharge Instructions: Continue low fiber diet for 2 weeks, then gradually transition to high fiber diet. Patient Instructions: Antibiotic Form, Aspirin (By mouth) Patient Language: Ghanaian Stand Alone Forms: General Discharge Information Follow-up/Referrals: Christiano Engel, [Physician] - Call for Appointment Discharge Medications: New metronidazole 500 mg tablet 500 mg PO Q8H 10 Days Qty: 30 0RF amoxicillin-pot clavulanate 875-125 mg tablet 1 tablet PO Q12H 10 Days Qty: 20 0RF dicyclomine 10 mg capsule 10 mg PO TID PRN (Reason: abdominal cramping) Qty: 60 0RF Continued Men 50 Plus Multivitamin 300-600-300 mcg tablet 1 tablet PO DAILY valsartan 320 mg tablet 160 mg PO DAILY Rx Instructions: TAKE 1 TABLET BY MOUTH EVERY DAY aspirin 81 mg Tablet 81 mg PO DAILY Patient Comments: TAKES AT HS metoprolol succinate 100 mg tablet extended release 24 hr See Rx Instructions .ROUTE .COMPLEX Qty: 270 3RF Dose Instruction: TAKE 3 TABLETS BY MOUTH EVERY DAY Patient Comments: TAKES 200 QAM, AND 100 HS Rx Instructions: TAKE 3 TABLETS BY MOUTH EVERY DAY atorvastatin 20 mg tablet See Rx Instructions .ROUTE .COMPLEX Qty: 90 3RF Dose Instruction: TAKE 1 TABLET BY MOUTH EVERY DAY Rx Instructions: TAKE 1 TABLET BY MOUTH EVERY DAY allopurinol 300 mg tablet 300 mg PO DAILY Qty: 90 3RF spironolactone 25 mg tablet See Rx Instructions .ROUTE .COMPLEX Qty: 90 3RF Dose Instruction: TAKE 1 TABLET BY MOUTH EVERY DAY Rx Instructions: TAKE 1 TABLET BY MOUTH EVERY DAY pioglitazone 45 mg tablet 45 mg PO DAILY Qty: 90 3RF (DME) OneTouch Ultra Test Strip See Rx Instructions .Route Qty: 100 3RF Rx Instructions: Use 1 daily to test blood glucose Ozempic 1 mg/dose (4 mg/3 mL) pen injector 1 mg subcut WEEKLY Qty: 3 5RF minoxidil 10 mg tablet See Rx Instructions .ROUTE .COMPLEX Qty: 45 2RF Dose Instruction: TAKE ONE-HALF TABLET BY MOUTH DAILY Patient Comments: takes 5mg Rx Instructions: TAKE ONE-HALF TABLET BY MOUTH DAILY Date of admission: 12/08/24 11:27 Primary Care Provider: David Gtz Admitting Provider: Christiano Engel Attending physician on admission: Christiano Engel Condition: Improved
[2024-12-09 12:28] LABS: Glucose Point of Care 185 mg/dl (65-105)
[2024-12-09 13:49] VITALS: BP 127/53; PULSE 79; RESP 20; TEMP 36.1; O2SAT 97
== END 2024-12-09 14:05 | disposition home or self-care (01) | DRG 392 ==
PROVIDERS: Nurse Practitioner Family; Admitting Provider Surgery; PCP Family Medicine Adolescent Medicine; Visit Provider Surgery
DX: K57.20 Diverticulitis of large intestine with perforation and abscess without bleeding (principal); Z68.41 Body mass index [BMI] 40.0-44.9, adult; I10 Essential (primary) hypertension; I87.2 Venous insufficiency (chronic) (peripheral); E11.319 Type 2 diabetes mellitus with unspecified diabetic retinopathy without macular edema; E78.5 Hyperlipidemia, unspecified; E66.01 Morbid (severe) obesity due to excess calories; L90.0 Lichen sclerosus et atrophicus; M10.9 Gout, unspecified; G47.33 Obstructive sleep apnea (adult) (pediatric); Z79.82 Long term (current) use of aspirin
CPT/HCPCS: 36415; 80048; 80053; 82948; 83605; 85025; 85027; A9270; G0378; G0379; J1650; J2543; J7120

== ENCOUNTER 2025-02-22 00:46 | Day surgery (SDC) | payer MEDICARE, SELFPAY ==
[2024-12-06 10:33] VITALS: BMI 42.4
--- NOTE | 2024-12-07 14:38 | SUR.PREOP ---
Kristy from the office called and said she received a call from the patient asking about his CT scan results and if it was ok to proceed with his colonoscopy prep. Clarissa read the report and we told Kristy we would call Dr. Diallo and let him know the results. Called Dr. Diallo and told him the results. Dr. Diallo asked that we cancel the patient and let the Dr. Torres or Dr. Lujan know. Pt was called by Mj Hein RN as was instructed to not eat or drink anything until he heard from Dr. Torres or Dr. Lujan's office. I called Dr. Torres's office. I spoke with Ciara regarding the issue. She said Dr. Engel was the only doctor in today and that she would give the information to him. I also mentioned to Ciara that the patient is expecting a call from them on how to proceed. I explained that we told the patient to not eat or drink anything more until he heard from Dr. Torres/Dr. Lujan's office. She said she would give all the information to Dr. Engel and they would reach out to the patient after they spoke with Dr. Engel.
--- NOTE | 2025-02-10 09:43 | PC.NURSE ---
Patient states there is no new medical or surgical history since last PAT phone call on 12/06/24.
--- OUTSIDE RECORDS SUMMARY | 2025-02-22 00:48 | XMS_ITS | Clinical Summary ---
Author Organization [facility] Address [address] [place] [address] Care Team Providers Care Is Analyst Name Role Phone David Gtz MD Primary Care Provider + Bry Anne MD Unavailable [phone] Abner Mancia MD Unavailable [phone] Donald Frank MD Unavailable [phone] Source Comments [facility],non-owned Affiliates and Associated Physician Practices is amultiple site organization consisting of ambulatory clinics and hospital sitesin [place], [place] and [place]. This disclosure is being madepursuant to the Care Everywhere program and may not contain all informatio navailable regarding this patient. Last updated 18.[facility] Allergies Active Allergy Reactions Criticality Noted Date Comments Adhesive Sensitivity Other 10/14/2019 Skin damage Hydrocodone-Acetaminophen Rash,Unknown Medium 07/11/20 16 Medications * Be aware that medications may not be up to date on this document. Alwaysverify current medications with the patient. allopurinol (ZYLOPRIM) 300 MG tablet 9 Active aspirin (ASPIRIN) 81 MG tablet Take 1 (one) tablet by mouth once daily Active atorvastatin (LIPITOR) 20 MG tablet 9 Active glimepiride (AMARYL) 1 MG tablet 9 Active metoprolol succinate XL 24hr (TOPROL XL) 100 MG tablet 9 Active minoxidil (LONITEN) 10 MG tablet Take 0.5 (one-half) tablet by mouth 9 Active pioglitazone (ACTOS) 45 MG tablet 8 Active spironolactone (ALDACTONE) 25 MG tablet 9 Active valsartan (DIOVAN) 320 MG tablet 0.5 (one-half) tablet 9 Active Multiple Vitamins-Minera ls (MULTI-VITAMIN/ MINERALS) TABS Activ e baclofen (Lioresal) 10 MG tablet Take 1 (one) tablet by mouth 3 times daily 3 Active clobetasol (Temovate) 0.05 % ointment APPLY TOPICALLY TWICE A DAY 3 Active furosemide (Lasix) 40 MG tablet Take 1 (one) tablet by mouth every morning 3 Active Active Problems Problem Noted Date Diagnosed [...] at Not on file Legal Sex 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 Gender Identity Not on file Sexual Orientation Not on file Last Filed Vital Signs Vital Sign Reading Time Taken Comments Blood Pressure 103/61 09/29/2024 1:15 PM MARKETING PLANNER Pulse 80 09/29/2024 1:15 PM MARKETING PLANNER Temperature 36.1 C (96.9 F) 06/01/2023 1:26 PM CDT Respiratory Rate 26 09/29/2024 1:15 PM MARKETING PLANNER Oxygen Saturation 97% 09/29/2024 1:15 PM MARKETING PLANNER Inhaled Oxygen Concentration - - Weight 146.1 kg (322 lb 3.2 oz) 09/29/2024 9:00 AM MARKETING PLANNER Height 180.3 cm (5' 11 ) 09/29/2024 9:00 AM MARKETING PLANNER Body Mass Index 44.94 09/29/2024 9:00 AM MARKETING PLANNER Plan of Treatment Upcoming Encounters Date Type Department Care Team (Late st Contact Info) Description 08/16/2025 2:00 PM CDT Office Visit [facility] [address] [place] [address] Bry Anne MD [address] [place] [address] [address] [place] [address] Health Maintenance Due Date Last Done Comments [...] VACCINE ( - 2023-2 5 season) 2024 DEPRESSION SCREENING 10/19/2024 06/01/2023 INFLUENZA VACCINE (Season Ended) 2025 HEPATITIS B VACCINE Aged Out No longe r eligible based on patient's age to complete this topic HIB VACCINE Aged Out No longer eligi ble based on patient's age to complete this topic HPV VACCINE Aged Out No longer eligi ble based on patient's age to complete this topic MENINGOCOCCAL (Group B) VACC INE SHARED DECISION-MAKING Aged Out No longer eligibl e based on patient's age to complete this topic MENINGOCOCCAL GROUPS A/C/Y/W VACCINE Aged Out No longer eligible b ased on patient's age to complete this topic Insurance [facility] Advance Directives * Full Code (Latest Code Status on File) Date Activated Date Inactivated Comments 09/29/2024 11:23 AM 09/29/2024 2:43 PM Care Teams Is Analyst Relationship Specialty Start Date End Date David Gtz MD [address] [address] PCP - General 08/01/08 Bry Anne MD [facility] [address] Cardiology 09/30/19 Abner Mancia MD [address] [place] [address] Urology 09/30/19 Donald Frank MD [address] [place] [address] Referring Physician Plastic and Reconstructive Surgery 09/30/19
--- OUTSIDE RECORDS SUMMARY | 2025-02-22 00:48 | XMS_ITS | Referral Summary ---
Author Organization [facility] Medical [facility] [address] Address [address] [place] [address] Care Team Providers Care Bone Crusher Name Role Phone David Gtz MD Primary [...] (10/20/2019): Added automatically from request for surgery [id number] Abdominal pannus 10/20/2019 Overview (10/21/2019): Added automatically from request for surgery [id number] Hemangioma of skin 03/31/2017 Skin benign neoplasm [...] on file Legal Sex Male 4:44 AM SYSTEMS INTEGRATION ANALYST Gender Identity Not on file Sexual Orientation Not on file Last Filed Vital Signs Vital Sign Reading Time Taken Comments Blood Pressure 132/62 09/28/2021 1:35 PM SYSTEMS INTEGRATION ANALYST Pulse 76 09/28/2021 1:35 PM SYSTEMS INTEGRATION ANALYST Temperature 36.8 C (98.2 F) 09/28/2021 1:35 PM SYSTEMS INTEGRATION ANALYST Respiratory Rate 18 09/28/2021 1:35 PM SYSTEMS INTEGRATION ANALYST Oxygen Saturation 97% 09/28/2021 3:07 PM SYSTEMS INTEGRATION ANALYST Inhaled Oxygen Concentration - - Weight 144.8 kg (319 lb 4.8 oz) 09/28/2021 1:35 PM SYSTEMS INTEGRATION ANALYST Height 180.3 cm (5' 11 ) 09/28/2021 1:35 PM SYSTEMS INTEGRATION ANALYST Body Mass Index 44.53 09/28/2021 1:35 PM SYSTEMS INTEGRATION ANALYST Plan of Treatment Not on file Insurance [facility] [employer] [place] [employer] [place] Advance Directives For more information, please contact: [phone] Documents on File Type Date Recorded Patient Voltmeter Operator Expl anation ADVANCE DIRECTIVE 11/25/2019 1:11 PM Power of Daytime Caregiver-Medical * Full Code (Latest Code Status on File) Date Activated Date Inactivated Comments 12/06/2019 4:28 PM 12/11/2019 6:08 PM Care Teams Bone Crusher Relationship Specialty Start Date End Date David Gtz MD PCP - General Family Medicine 02/09/19
--- OUTSIDE RECORDS SUMMARY | 2025-02-22 00:48 | XMS_ITS | Clinical Summary ---
Author Organization [facility] Address [address] [place], [address] [address] Phone Care Team Providers Care Clinical Reviewer Name Role Phone David Gtz MD Primary Care Provider + Bry Marks DO Unavailable [phone] Allergies Active Allergy Reactions Criticality Noted Date [...] Take 25 mg by mouth daily. Active [place]-3 Fatty Acids (FISH OIL PO) Take by [...] Most Recently Relevant to Health Maintenance Insurance [facility] Care Teams Clinical Reviewer Relationship Specialty Start Date End Date David Gtz MD [address] [place] [address] PCP - General Family Medicine 07/11/16 Bry Marks DO [address] [place] [address] Gastroenterology 07/11/16
--- OUTSIDE RECORDS SUMMARY | 2025-02-22 00:48 | XMS_ITS | Clinical Summary ---
Author Organization [facility] Medical 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 Gender Identity Not on file Sexual Orientation Not on file Obstetrics History Last Filed Vital Signs Vital Sign Reading Time Taken Comments Blood Pressure 132/62 09/28/2021 1:35 PM SERVICE TECHNICIAN Pulse 76 09/28/2021 1:35 PM SERVICE TECHNICIAN Temperature 36.8 C (98.2 F) 09/28/2021 1:35 PM SERVICE TECHNICIAN Respiratory Rate 18 09/28/2021 1:35 PM SERVICE TECHNICIAN Oxygen Saturation 97% 09/28/2021 3:07 PM SERVICE TECHNICIAN Inhaled Oxygen Concentration - - Weight 144.8 kg (319 lb 4.8 oz) 09/28/2021 1:35 PM SERVICE TECHNICIAN Height 180.3 cm (5' 11 ) 09/28/2021 1:35 PM SERVICE TECHNICIAN Body Mass Index 44.53 09/28/2021 1:35 PM SERVICE TECHNICIAN Plan of Treatment Not on file [place] Advance Directives For more information, please contact: [phone] Documents on File Type Date Recorded Patient Lead Esthetician Expl anation ADVANCE DIRECTIVE 11/25/2019 1:11 PM Power of Hand Box Folder-Medical * Full Code (Latest Code Status on File) Date Activated Date Inactivated Comments 12/06/2019 4:28 PM 12/11/2019 6:08 PM Care Teams Corporate Tax Manager Relationship Specialty Start Date End Date David Gtz MD PCP - General Family Medicine 02/09/19
--- OUTSIDE RECORDS SUMMARY | 2025-02-22 00:48 | XMS_ITS | Continuity of Care Document ---
Author Organization [facility] Address [address] [place] [address] [address] [place] [address] Phone Care Team Providers Care Mix Chemist Name Role Phone Sarkis, Bryant Unavailable Unavailable Advance Directives Directive Yes / No Effective Date File Name No Information Encounters Encounter Description Practice Location Reason(s) For Visit Diagnoses Date Provider Providers Copied on Encounter [facility], [address], [place], [place], [id number], [place] tel:[phone] [facility] No Information Mar-2 0-200 6 Doisy Edward. [address] , [address], [place], [address], [place]. tel:[phone] Family History Family Member Type Diagnosis Age At Onset No Information Payers Payer name Insurance type Covered green party ID Authoriza titeresa(s) [facility] CI [id number] Social History Type Description Quantity Date Captured [...]
[2025-02-22 07:21] VITALS: BP 131/69; PULSE 72; RESP 18; TEMP 36.1; O2SAT 98
[2025-02-22] MEDS: LACTATED RINGERS 1,000 ML 150 ML IV CONT (07:30)
[2025-02-22 07:33] LABS: Glucose Point of Care 133 mg/dl (65-105)
--- NOTE | 2025-02-22 07:55 | PM.HPGS ---
History of Present Illness History of Present Illness Consent: Risks, benefits, and alternatives have been discussed and questions answered. Patient agrees to proceed with procedure. Chief complaint: diverticulitis of large intestine Narrative: Marbin Anderson is a 64 year old male with last colonoscopy 2020, earlier this year required hospitalization for perforated diverticulitis treated conservatively with bowel rest and IV antibiotics Review of Systems Review of Systems: All systems reviewed & are unremarkable except as noted in HPI and below PMFSH Past Medical History Medical History (Updated 02/22/25 @ 07:57 by Jesus Noyola MD) History of diverticulitis of colon Morbid obesity with BMI of 40.0-44.9, adult Lichen sclerosus Venous insufficiency (chronic) (peripheral) Gout, unspecified Diabetic retinopathy ZULEYMA (obstructive sleep apnea) Hypertension Hyperlipidemia Surgical History Surgical History History of cardiac catheterization History of colonoscopy with polypectomy Status post arthroscopy of knee Bilateral knee History of skin graft (2018) Of the penis Status post panniculectomy (2019) Family History Family History Father Diabetes mellitus Diverticulitis Hypertension Multiple myeloma Mother Diabetes mellitus Multiple myeloma Social History Social History Social History: Patient lives with his of 34 years. 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 He retired diff of October 2024. He is a lifelong nonsmoker. He only drinks alcohol on extremely rare occasion and in minimal amounts. Code status: Full code [facility] power of prosecuting attorney: Cheli () Smoking status: Never smoker Alcohol intake: never Substance use: never Substance use type: does not use Do You Feel Safe in your Home?: Yes Lack of Transportation: No Lack of Food: Never True Current Housing: I Have Housing Concerned About Future Housing: No Difficulty Paying Gas/Electric Bills: No Difficulty Paying for Meds: No Currently Unemployed: No Education: Bachelor's Degree Difficulty w/ Childcare or Family Care: No Living arrangements: with family Spiritual care concerns: No Meds Home Medications and Allergies Home Medications ?Medication ?Instructions ?Recorded ?Confirmed ?Type aspirin 81 mg tablet 81 mg PO DAILY 08/29/21 02/22/25 History rnfiwdxa-uk-ljvmr 300 mcg-K 60 1 tablet PO DAILY 07/10/22 02/22/25 History mcg-lycop 600 mcg-lutein 300 mcg tablet (Men 50 Plus Multivitamin) metoprolol succinate 100 mg See Rx Instructions .Route 05/03/24 02/22/25 Rx tablet,extended release 24 hr .COMPLEX #270 tabs atorvastatin 20 mg tablet See Rx Instructions .Route 05/09/24 02/22/25 Rx .COMPLEX #90 tabs allopurinol 300 mg tablet 300 mg PO DAILY #90 tabs 08/01/24 02/22/25 Rx pioglitazone 45 mg tablet 45 mg PO DAILY #90 tabs 08/04/24 02/22/25 Rx spironolactone 25 mg tablet See Rx Instructions .Route 08/04/24 02/22/25 Rx .COMPLEX #90 tabs blood sugar diagnostic (OneTouch #100 ea 08/29/24 02/07/25 Rx Ultra Test strips) minoxidil 10 mg tablet See Rx Instructions .Route 11/06/24 02/22/25 Rx .COMPLEX #45 tabs valsartan 320 mg tablet 160 mg PO DAILY 11/08/24 02/22/25 History empagliflozin 10 mg tablet 10 mg PO DAILY #90 tabs 02/07/25 02/22/25 Rx (Jardiance) Allergies Allergy/AdvReac Type Severity Reaction Status Date / Time acetaminophen (From Lortab) AdvReac Vomiting Verified 02/22/25 07:13 hydrocodone (From Lortab) AdvReac Vomiting Verified 02/22/25 07:13 Vital Signs Vital Signs - 24 hr 02/22/25 07:21 Temperature 97 F L Pulse Rate 72 Respiratory Rate 18 Blood Pressure 131/69 Pulse Oximetry 98 Oxygen Delivery Room Air Exam Const: General: comfortable and no acute distress Nutritional Appearance: obese HENMT: Face/Nose/Sinus: Normal nares present Eyes: General: appearance normal, both eyes and all related structures Neck: Neck: no JVD Resp: Auscultation: clear to auscultation bilaterally Cardio: Rate: regular rate Rhythm: regular rhythm GI: Inspection: non-distended GI Palp: Yes Soft to palpation Skin: General skin exam: normal color Neuro: Speech: normal speech Extrem: General: normal to inspection Psych: Mental Status: mental status grossly normal Assessment and Plan Assessment and plan (1) History of diverticulitis of colon: Code(s): Z87.19 - Personal history of other diseases of the digestive system Status: Acute Assessment and Plan: colonoscopy
--- NOTE | 2025-02-22 07:56 | WPDANESEPPF ---
Anes - Initial Pre Proc Eval Procedure: Operation Date: 02/22/25 08:30 Proposed Procedures p Colonoscopy - Jesus Noyola MD Date/Time: 02/22/25 07:56 Surgeon: Jesus Noyola MD Pre Op Diagnosis: diverticulitis of large intestine Patient Data Age: 64 Gender: M Height: 1.8 m Weight: 138 kg Last Vital Signs Temp 97 F L 02/22/25 07:21 Pulse 72 02/22/25 07:21 Resp 18 02/22/25 07:21 BP 131/69 02/22/25 07:21 Pulse Ox 98 02/22/25 07:21 O2 Del Method Room Air 02/22/25 07:21 Allergies Allergy/AdvReac Type Severity Reaction Status Date / Time acetaminophen (From Lortab) AdvReac Vomiting Verified 02/22/25 07:13 hydrocodone (From Lortab) AdvReac Vomiting Verified 02/22/25 07:13 Home Medications ?Medication ?Instructions ?Recorded ?Confirmed ?Type aspirin 81 mg tablet 81 mg PO DAILY 08/29/21 02/22/25 History [id number]-[id number] 300 mcg-K 60 1 tablet PO DAILY 07/10/22 02/22/25 History mcg-lycop 600 mcg-lutein 300 mcg tablet (Men 50 Plus Multivitamin) metoprolol succinate 100 mg See Rx Instructions .Route 05/03/24 02/22/25 Rx tablet,extended release 24 hr .COMPLEX #270 tabs atorvastatin 20 mg tablet See Rx Instructions .Route 05/09/24 02/22/25 Rx .COMPLEX #90 tabs allopurinol 300 mg tablet 300 mg PO DAILY #90 tabs 08/01/24 02/22/25 Rx pioglitazone 45 mg tablet 45 mg PO DAILY #90 tabs 08/04/24 02/22/25 Rx spironolactone 25 mg tablet See Rx Instructions .Route 08/04/24 02/22/25 Rx .COMPLEX #90 tabs blood sugar diagnostic (OneTouch #100 ea 08/29/24 02/07/25 Rx Ultra Test strips) minoxidil 10 mg tablet See Rx Instructions .Route 11/06/24 02/22/25 Rx .COMPLEX #45 tabs valsartan 320 mg tablet 160 mg PO DAILY 11/08/24 02/22/25 History empagliflozin 10 mg tablet 10 mg PO DAILY #90 tabs 02/07/25 02/22/25 Rx ([facility]) Laboratory Tests 02/22/25 07:26 POC Capillary Glucose 133 H mg/dl (65-105) Patient hx anesthesia problems: none Family hx anesthesia problems: none Results Review: All pre-operative results and documents have been reviewed as part of the pre-operative evaluation. [facility] Past Medical History Medical History (Updated 02/22/25 @ 07:57 by Jesus Noyola MD) History of diverticulitis of colon Morbid obesity with BMI of 40.0-44.9, adult Lichen sclerosus Venous insufficiency (chronic) (peripheral) Gout, unspecified Diabetic retinopathy ZULEYMA (obstructive sleep apnea) Hypertension Hyperlipidemia Surgical History Surgical History History of cardiac catheterization History of colonoscopy with polypectomy Status post arthroscopy of knee Bilateral knee History of skin graft (2018) Of the penis Status post panniculectomy (2019) Family History Family History Father Diabetes mellitus Diverticulitis Hypertension Multiple myeloma Mother Diabetes mellitus Multiple myeloma Social History Social History Social History: Patient lives with his of 34 years. 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 He retired diff of October 2024. He is a lifelong nonsmoker. He only drinks alcohol on extremely rare occasion and in minimal amounts. Code status: Full code [facility] power of bottom filler: Cheli () Smoking status: Never smoker Alcohol intake: never Substance use: never Substance use type: does not use Do You Feel Safe in your Home?: Yes Lack of Transportation: No Lack of Food: Never True Current Housing: I Have Housing Concerned About Future Housing: No Difficulty Paying Gas/Electric Bills: No Difficulty Paying for Meds: No Currently Unemployed: No Education: Bachelor's Degree Difficulty w/ Childcare or Family Care: No Living arrangements: with family Spiritual care concerns: No Anes - Eval Final PreProcedure Day of Procedure 02/22/25 07:56 Patient weight: morbidly obese Heart: regular rate and rhythm Lungs: clear to auscultation Airway: Mallampati scale class III Neurological: alert and oriented Last oral intake: >/= 8 hours ASA classification: III Emergent: no Anesthetic plan: proceed Anesthesia type and monitoring: general GIVS and standard monitoring Results Review: All pre-operative results and documents have been reviewed as part of the pre-operative evaluation. Informed Consent: The patient's anesthetic plan and its attendant risks and benefits were discussed with the patient/family/POA. Questions were solicited and answers provided to the satisfaction of the patient/family/POA.
[2025-02-22 08:36] VITALS: BP 105/55; PULSE 65; RESP 25; O2SAT 96
[2025-02-22 08:46] VITALS: BP 121/58; PULSE 62; RESP 22; O2SAT 95
[2025-02-22 08:56] VITALS: BP 136/67; PULSE 60; RESP 20; O2SAT 96
== END 2025-02-22 09:10 | disposition home or self-care (01) ==
PROVIDERS: PCP Family Medicine Adolescent Medicine; Referring Provider Surgery; Visit Provider Internal Medicine Gastroenterology
PROC: 0DJD8ZZ Inspection of Lower Intestinal Tract, Via Natural or Artificial Opening Endoscopic (ICD-10-PCS; CPT 45378; principal; 2025-02-22 08:30)
DX: Z09 Encounter for follow-up examination after completed treatment for conditions other than malignant neoplasm (principal); D12.3 Benign neoplasm of transverse colon; K63.5 Polyp of colon; K57.30 Diverticulosis of large intestine without perforation or abscess without bleeding; K64.8 Other hemorrhoids; Z87.19 Personal history of other diseases of the digestive system; E66.01 Morbid (severe) obesity due to excess calories; Z68.41 Body mass index [BMI] 40.0-44.9, adult
CPT/HCPCS: 45385; 82948; 88305; J2003; J2704; J7120